=== PATIENT | male | born 1970 | race Caucasian/White ===

== ENCOUNTER 2016-11-02 14:05 | Emergency (ER) | payer SELFPAY ==
--- NOTE | 2016-11-02 14:15 | ER Document Report ---
ED Medical Screen (RME) - General Chief Complaint: Headache Stated Complaint: HEAD ACHE Time seen by provider: 14:10 Mode of Arrival: Medic Information source: Patient Notes: 46 yo male presents to ed for headache since yesterday. Woke up this morning on the floor does not know how he got there. TRAVEL OUTSIDE OF THE [place] IN LAST 30 DAYS: No - HPI Onset: Yesterday Onset/Duration: Persistent Quality of pain: Sharp, Throbbing Severity: Severe Pain Level: 5 Associated Symptoms: Headache - worst headache, Vomiting - x1 Exacerbated by: Other - light and noise Relieved by: Denies Similar symptoms previously: Yes Recently seen / treated by doctor: No - Related Data Smoking: Cigarettes, Less than 1 pack/day Frequency of alcohol use: Social Drug Abuse: None Allergies/Adverse Reactions: oragel Allergy (Intermediate, Uncoded 09/25/16 16:08) ambesol Allergy (Mild, Uncoded 09/25/16 16:08) Past Medical History - Past Medical History Cardiac Medical History: Reports: Hx Atrial Fibrillation - Resolved after cardiac ablation, Hx Hypertension Pulmonary Medical History: Reports: Hx Bronchitis, Hx COPD - Patient unclear about the Psychiatric Medical History: Reports: Hx Depression - In treatment through [facility] Past Surgical History: Reports: Hx Cardiac Catheterization - ablation, Hx Cardiac Surgery - "open heart to patch holes/valves" ablation - Immunizations Immunizations up to date: Yes Hx Diphtheria, Pertussis, Tetanus Vaccination: Yes - 2012
[2016-11-02] MEDS ORDERED: DIPHENHYDRAMINE HCL 50 MG/ML VIAL IV ONE (14:59)
[2016-11-02] MEDS ORDERED: PROCHLORPERAZINE EDISYLATE INJ 10 MG/2 ML VIAL IV ONE (14:59)
--- NOTE | 2016-11-02 15:08 | ER Document Report ---
ED Headache - General Chief Complaint: Headache Stated Complaint: HEAD ACHE Time seen by provider: 15:07 Mode of Arrival: Medic Information source: Patient Notes: 46 yo smoker, occ. ETOH (last ), no drugs, male c/o waking up on the floor at 11:30 am with worsening headache 5/5, that started during the day, throbbing- constant, 3/5, all over, but worse on the left. He went to bed in the bed. So he does not know why he was on the floor. He does remember vomiting during the night-went back to sleep. No fever or chills, no diarrhea. Has shortness of breath with lightheadedness that he has had since he woke up. No chest pain. No abdominal pain. Mld nausea. No eaten today. TRAVEL OUTSIDE OF THE [place] IN LAST 30 DAYS: No - Related Data Allergies/Adverse Reactions: oragel Allergy (Intermediate, Uncoded 11/02/16 14:10) ambesol Allergy (Mild, Uncoded 11/02/16 14:10) Past Medical History - General Information source: Patient - Social History Smoking Status: Current Every Day Smoker Chew tobacco use (# tins/day): No Frequency of alcohol use: Social Drug Abuse: None Lives with: Alone Family History: Arthritis, CAD, COPD, DM, Hyperlipidemia, Hypertension Patient has suicidal ideation: No Patient has homicidal ideation: No - Past Medical History Cardiac Medical History: Reports: Hx Atrial Fibrillation - Resolved after cardiac ablation, Hx Hypertension Pulmonary Medical History: Reports: Hx Bronchitis, Hx COPD - Patient unclear about the Psychiatric Medical History: Reports: Hx Depression - In treatment through [facility] Past Surgical History: Reports: Hx Cardiac Catheterization - ablation, Hx Cardiac Surgery - "open heart to patch holes/valves" ablation - Immunizations Immunizations up to date: Yes Hx Diphtheria, Pertussis, Tetanus Vaccination: Yes - 2012 Review of Systems - Review of Systems Constitutional: No symptoms reported EENT: No symptoms reported Cardiovascular: No symptoms reported Respiratory: No symptoms reported Gastrointestinal: See HPI Genitourinary: No symptoms reported Male Genitourinary: No symptoms reported Musculoskeletal: No symptoms reported Skin: No symptoms reported Hematologic/Lymphatic: No symptoms reported Neurological/Psychological: See HPI Physical Exam - Vital signs Vitals: Temp Pulse Resp BP Pulse Ox 98.4 F 79 20 132/88 H 98 11/02/16 14:10 11/02/16 14:10 11/02/16 14:10 11/02/16 14:10 11/02/16 14:10 Interpretation: Normal - General General appearance: Appears well, Alert In distress: None - HEENT Head: Normocephalic, Atraumatic Eyes: Normal Conjunctiva: Normal Extraocular movements intact: Yes Pupils: PERRL Nerve palsy: No Tympanic membrane: Normal Mucous membranes: Normal Pharynx: Normal Neck: Supple. No: Lymphadenopathy - Respiratory Respiratory status: No respiratory distress Chest status: Nontender Breath sounds: Normal Chest palpation: Normal - Cardiovascular Rhythm: Regular Heart sounds: Normal auscultation Murmur: No - Abdominal Inspection: Normal Distension: No distension Bowel sounds: Normal Tenderness: Nontender Organomegaly: No organomegaly - Back Back: Normal, Nontender. No: CVA tenderness - Extremities General upper extremity: Normal inspection, Nontender, Normal color, Normal ROM , Normal temperature General lower extremity: Normal inspection, Nontender, Normal color, Normal ROM , Normal temperature, Normal weight bearing. No: Gricelda's sign - Neurological Neuro grossly intact: Yes Cognition: Normal Orientation: AAOx4 Doris Coma Scale Eye Opening: Spontaneous [employer] Coma Scale Verbal: Oriented Doris Coma Scale Motor: Obeys Commands Doris Coma Scale Total: 15 Speech: Normal Motor strength normal: LUE, RUE, LLE, RLE Sensory: Normal - Psychological Associated symptoms: Normal affect, Normal mood - Skin Skin Temperature: Warm Skin Moisture: Dry Skin Color: Normal Skin irregularity: negative: Rash Course - Re-evaluation Re-evalutation: 11/02/16 16:14 Headache down to 3/[address] is negative. 11/02/16 17:12 Headache now 2/5. he states he has no way home. 11/02/16 17:32 Urine drug screen is pending. His ride is here so I will let him go with his discharge paperwork and check the urine drug screen when it is resulted. Gait stable - Vital Signs Vital signs: Temp Pulse Resp BP Pulse Ox 98.4 F 75 20 144/86 H 97 11/02/16 17:31 11/02/16 17:31 11/02/16 14:10 11/02/16 17:31 11/02/16 17:31 - Laboratory Result Diagrams: 11/02/16 15:40 11/02/16 15:40 Laboratory results interpreted by me: 11/02/16 15:40 Ur Leukocyte Esterase SMALL H Discharge - Discharge Clinical Impression: Amnesia Headache Qualifiers: Headache type: unspecified Headache chronicity pattern: acute headache Intractability: not intractable Qualified Code(s): R51 - Headache Condition: Good Disposition: HOME, SELF-CARE Instructions: Intravenous Compazine for Headaches ([facility]), Use of Diphenhydramine , Toradol Injection ([facility]), Headache ([facility]), Neurologist, Acetaminophen, Use of [id number] Ibuprofen ([facility]) Additional Instructions: return to er if worse copy of labwork and the CT report given to you Referrals: AUREA CONTRERAS DO [Primary Care Provider] - Follow up as needed
[2016-11-02] MEDS ORDERED: KETOROLAC TROMETHAMINE INJ/PF 30 MG/1 ML SDV IV ONE (15:26)
[2016-11-02] MEDS ORDERED: NORMAL SALINE 1000 ML 1,000 ML IV ONE (15:28)
[2016-11-02 16:07] LABS: ABSOLUTE LYMPHOCYTES (AUTO) 2.1 10^3/uL (0.5-4.7); ABSOLUTE MONOCYTES (AUTO) 0.5 10^3/uL (0.1-1.4); ABSOLUTE NEUT (AUTO) 7.5 10^3/uL (1.7-8.2); BASOPHILS % (AUTO) 0.5 % (0-2); HEMATOCRIT 45.2 % (37.9-51.0); HEMOGLOBIN 15.5 g/dL (13.5-17.0); HGB HCT DIFFERENCE 1.3; LYMPHOCYTES % (AUTO) 20.5 % (13-45); MEAN CORPUSCULAR HEMOGLOBIN 31.8 pg (27.0-33.4); MEAN CORPUSCULAR HGB CONC 34.3 g/dL (32.0-36.0); MEAN CORPUSCULAR VOLUME 93 fl (80-97); MONOCYTES % (AUTO) 5.1 % (3-13); RED BLOOD COUNT 4.88 10^6/uL (4.35-5.55); RED CELL DISTRIBUTION WIDTH 13.2 % (11.5-14.0); SEGMENTED NEUTROPHILS % (AUTO) 73.9 % (42-78); WHITE BLOOD COUNT 10.2 10^3/uL (4.0-10.5)
[2016-11-02 16:23] LABS: ALANINE AMINOTRANSFERASE 55 U/L (21-72); ALBUMIN 4.1 g/dL (3.5-5.0); ALKALINE PHOSPHATASE 79 U/L (38-126); ANION GAP 12 (5-19); ASPARTATE AMINO TRANSFERASE 29 U/L (17-59); BILIRUBIN,TOTAL 0.4 mg/dL (0.2-1.3); BLOOD UREA NITROGEN 14 mg/dL (7-20); CALCIUM 9.9 mg/dL (8.4-10.2); CARBON DIOXIDE 24 mmol/L (22-30); CHLORIDE 107 mmol/L (98-107); CREATININE RESULT 0.93 mg/dL (0.52-1.25); GLUCOSE 86 mg/dL (75-110); POTASSIUM 4.9 mmol/L (3.6-5.0); SODIUM 142.5 mmol/L (137-145); TOTAL PROTEIN 6.9 g/dL (6.3-8.2)
[2016-11-02] MEDS ORDERED: ACETAMINOPHEN 325 MG TABLET PO ONE (16:24)
[2016-11-02 17:23] LABS: APPEARANCE,URINE CLEAR; BILIRUBIN,URINE NEGATIVE (NEGATIVE); GLUCOSE, URINE NEGATIVE (NEGATIVE); KETONES,URINE NEGATIVE (NEGATIVE); LEUKOCYTE ESTERASE,URINE SMALL (NEGATIVE); NITRITE,URINE NEGATIVE (NEGATIVE); PROTEIN,URINE NEGATIVE (NEGATIVE); URINE SPECIFIC GRAVITY 1.006; UROBILINOGEN,URINE NEGATIVE mg/dL (<2.0)
[2016-11-02 17:36] VITALS: BP 144/86
[2016-11-02 17:41] LABS: URINE BARBITURATES SCREEN NEGATIVE; URINE METHADONE SCREEN NEGATIVE; URINE PHENCYCLIDINE SCREEN NEGATIVE
== END 2016-11-02 17:42 | disposition home or self-care (01) ==
LOC: ER 14:05
DX: R51 Headache (principal); R41.3 Other amnesia; R11.2 Nausea with vomiting, unspecified; I10 Essential (primary) hypertension; F17.200 Nicotine dependence, unspecified, uncomplicated
CPT/HCPCS: 99284; 96361; 96374; 96375; 36415; 85025; 80053; 81001; 80307; 70450; J1200; J1885; J0780; J7030

== ENCOUNTER 2016-12-06 14:29 | Emergency (ER) | payer SELFPAY ==
--- NOTE | 2016-12-06 14:47 | ER Document Report ---
ED Medical Screen (RME) - General Stated Complaint: STOMACH PAIN Notes: patient is a 46 year old male with abdominal pain LLQ and back pain. onset was 3 days ago. +nausea -vomiting pyuria, frequency, urgency denies discharge Denies history kidney stone I have greeted and performed a rapid initial assessment of this patient. A comprehensive ED assessment and evaluation of the patient, analysis of test results and completion of the medical decision making process will be conducted by additional ED providers. TRAVEL OUTSIDE OF THE [place] IN LAST 30 DAYS: No - Related Data Allergies/Adverse Reactions: oragel Allergy (Intermediate, Uncoded 11/02/16 14:10) ambesol Allergy (Mild, Uncoded 11/02/16 14:10) Past Medical History - Past Medical History Cardiac Medical History: Reports: Hx Atrial Fibrillation - Resolved after cardiac ablation, Hx Hypertension Pulmonary Medical History: Reports: Hx Bronchitis, Hx COPD - Patient unclear about the Psychiatric Medical History: Reports: Hx Depression - In treatment through [facility] Past Surgical History: Reports: Hx Cardiac Catheterization - ablation, Hx Cardiac Surgery - "open heart to patch holes/valves" ablation - Immunizations Immunizations up to date: Yes Hx Diphtheria, Pertussis, Tetanus Vaccination: Yes - 2012
[2016-12-06 15:18] LABS: APPEARANCE,URINE CLEAR; BILIRUBIN,URINE NEGATIVE (NEGATIVE); GLUCOSE, URINE NEGATIVE (NEGATIVE); KETONES,URINE NEGATIVE (NEGATIVE); LEUKOCYTE ESTERASE,URINE NEGATIVE (NEGATIVE); NITRITE,URINE NEGATIVE (NEGATIVE); PROTEIN,URINE NEGATIVE (NEGATIVE); URINE SPECIFIC GRAVITY 1.003; UROBILINOGEN,URINE NEGATIVE mg/dL (<2.0)
[2016-12-06 15:35] LABS: ALANINE AMINOTRANSFERASE 51 U/L (21-72); ALBUMIN 4.9 g/dL (3.5-5.0); ALKALINE PHOSPHATASE 86 U/L (38-126); ANION GAP 13 (5-19); ASPARTATE AMINO TRANSFERASE 27 U/L (17-59); BILIRUBIN,TOTAL 0.6 mg/dL (0.2-1.3); BLOOD UREA NITROGEN 7 mg/dL (7-20); CALCIUM 10.1 mg/dL (8.4-10.2); CARBON DIOXIDE 24 mmol/L (22-30); CHLORIDE 105 mmol/L (98-107); CREATININE RESULT 0.98 mg/dL (0.52-1.25); GLUCOSE 101 mg/dL (75-110); POTASSIUM 4.8 mmol/L (3.6-5.0); SODIUM 141.5 mmol/L (137-145); TOTAL PROTEIN 7.7 g/dL (6.3-8.2)
[2016-12-06 15:51] LABS: ABSOLUTE EOSINOPHILS # (AUTO) 0.1 10^3/uL (0.0-0.6); ABSOLUTE LYMPHOCYTES (AUTO) 2.4 10^3/uL (0.5-4.7); ABSOLUTE MONOCYTES (AUTO) 0.6 10^3/uL (0.1-1.4); BASOPHILS % (AUTO) 0.2 % (0-2); EOSINOPHILS % (AUTO) 1.3 % (0-6); HEMATOCRIT 44.1 % (37.9-51.0); HGB HCT DIFFERENCE 0.9; MEAN CORPUSCULAR HEMOGLOBIN 31.5 pg (27.0-33.4); MEAN CORPUSCULAR VOLUME 93 fl (80-97); MONOCYTES % (AUTO) 7.8 % (3-13); RED BLOOD COUNT 4.76 10^6/uL (4.35-5.55); RED CELL DISTRIBUTION WIDTH 13.4 % (11.5-14.0); SEGMENTED NEUTROPHILS % (AUTO) 61.7 % (42-78); WHITE BLOOD COUNT 8.1 10^3/uL (4.0-10.5)
[2016-12-06] MEDS ORDERED: KETOROLAC TROMETHAMINE INJ/PF 30 MG/1 ML SDV IV ONE (16:01)
--- NOTE | 2016-12-06 16:04 | ER Document Report ---
ED General - General Chief Complaint: Abdominal Pain Stated Complaint: STOMACH PAIN Time seen by provider: 16:01 Mode of Arrival: Ambulatory Information source: Patient Notes: 46-year-old male who complains of 3 day history of left lower quadrant abdominal pain left flank pain and nausea. He also reports 5 day history of cough for for green sputum and occasional wheezing. He denies fever, chills, vomiting, diarrhea, hematemesis, hematochezia, or melena. He does report dysuria for the past 3 days but no hematuria. He reports prior history of symptoms like this once many years ago but says he did not seek medical care for it. Patient denies any right-sided pain or groin pain. Patient reports eating does not make pain better or worse he reports the pain is been constant Physical Exam: General: Alert, appears well. HEENT: Normocephalic. Atraumatic. PERRLA. Extraocular movements intact. Oropharynx clear. Neck: Supple. Non-tender. Respiratory: No respiratory distress. Clear and equal breath sounds bilaterally. Cardiovascular: Regular rate and rhythm. Abdominal: Normal Inspection. Soft, mild tenderness in left upper quadrant left lower quadrant and right lower quadrant with no guarding rebound rigidity or referred pain. No distension. Normal Bowel Sounds. exam normal male testes ongoing no masses no hernias no lesions. Patient localizes pain to lower abdominal musculature bilaterally and not the area Back: Non-tender. No deformity or step off. Extremities: Moves all four extremities. Upper extremities: Normal inspection. Non-tender. Normal color. Normal ROM. Normal temperature. Lower extremities: Normal inspection. Non-tender. No edema. Normal color. Normal ROM. Normal temperature. Neurological: Speech clear mentation normal moves all extremities well. Psychological: Normal affect. Normal Mood. Skin: Warm. Dry. Normal color.m TRAVEL OUTSIDE OF THE [place] IN LAST 30 DAYS: No - Related Data Allergies/Adverse Reactions: oragel Allergy (Intermediate, Uncoded 12/06/16 14:47) ambesol Allergy (Mild, Uncoded 12/06/16 14:47) Past Medical History - Social History Smoking Status: Current Every Day Smoker Chew tobacco use (# tins/day): No Frequency of alcohol use: None Drug Abuse: None Family History: Arthritis, CAD, COPD, DM, Hyperlipidemia, Hypertension Patient has suicidal ideation: No Patient has homicidal ideation: No - Past Medical History Cardiac Medical History: Reports: Hx Atrial Fibrillation - Resolved after cardiac ablation, Hx Hypertension Pulmonary Medical History: Reports: Hx Bronchitis, Hx COPD - Patient unclear about the Renal/ Medical History: Denies: Hx Peritoneal Dialysis Psychiatric Medical History: Reports: Hx Depression - In treatment through [facility] Past Surgical History: Reports: Hx Cardiac Catheterization - ablation, Hx Cardiac Surgery - "open heart to patch holes/valves" ablation - Immunizations Immunizations up to date: Yes Hx Diphtheria, Pertussis, Tetanus Vaccination: Yes - 2012 Review of Systems - Review of Systems Constitutional: See HPI EENT: denies: Ear pain, Throat pain Cardiovascular: denies: Chest pain, Syncope Respiratory: See HPI Gastrointestinal: See HPI Genitourinary: See HPI Musculoskeletal: See HPI Hematologic/Lymphatic: denies: Swollen glands Neurological/Psychological: denies: Weakness, Numbness Course - Re-evaluation Re-evalutation: 12/06/16 17:09 12/06/16 17:10 Patient's abdominal exam seems most consistent with abdominal wall pain possibly related to the cough that he has had for the past 5 days. He will be prescribed an inhaler and antibiotics for bronchitis. Since workup for intra- abdominal problems has been negative and his urine is clear. - Laboratory Result Diagrams: 12/06/16 14:50 12/06/16 14:50 Laboratory results interpreted by me: Urinalysis negative - Diagnostic Test Radiology reviewed: Image reviewed, Reports reviewed Discharge - Discharge Clinical Impression: Bronchitis Abdominal pain Qualifiers: Abdominal location: unspecified location Qualified Code(s): R10.9 - Unspecified abdominal pain Condition: Stable Disposition: HOME, SELF-CARE Additional Instructions: Abdominal Pain There are many causes of abdominal pain. Pain can mean a serious problem requiring surgery (such as appendicitis). It can also be an innocent problem that goes away on its own (such as a viral infection). Often, time must pass to determine the cause of pain. The physician does not feel that hospitalization is necessary, at present. Things may change within the next 24 hours. Call the doctor or come back for re- examination if any problems occur, such as: (1) Pain that becomes more severe, steady, or becomes concentrated in one specific area. . (2) Vomiting that persists or becomes more frequent. (3) Blood in the vomitus, urine, or bowel movements. Blood in the stool may have a tarry or black appearance. (4) Shaking chills or fever greater than 100 degrees F. (5) The abdomen becomes more distended or swollen. (6) Bowel movements cease. (7) Failure to improve as expected. Bronchitis You have acute bronchitis. This disease is an infection or inflammation of the air passageways in your lungs. Symptoms usually include cough, low grade fever, shortness of breath, and wheezing. The cough usually persists for a couple of weeks. Most cases of bronchitis get better without antibiotics. We prescribe antibiotics when we believe bacteria are damaging your airways, or if there's high risk the bronchitis will worsen into pneumonia. Increase your fluid intake. A cool mist humidifier may make your lungs more comfortable. An expectorant (cough medicine that loosens phlegm) can help. If you smoke, STOP!!! Recovery from bronchitis can be somewhat slow, but you should see improvement within a day or two. Repeated episodes of bronchitis may result in lung damage -- for example, chronic bronchitis, recurrent pneumonias, or emphysema. Call the doctor if you develop increasing fever, shortness of breath, chest pain, bloody sputum, or otherwise worsen. If you have not improved at all after several days, contact the physician. Prescriptions: Albuterol Sulfate [Proair HFA Inhalation Aerosol 8.5 gm MDI] 2 puff IH Q4H PRN # 1 mdi PRN Reason: Azithromycin [Zithromax 250 mg Tablet] 250 mg PO ASDIR PRN #6 tablet PRN Reason: Tramadol HCl 50 mg PO BID PRN #7 tablet PRN Reason: For Pain Referrals: AUREA CONTRERAS DO [Primary Care Provider] - Follow up in 1 week
[2016-12-06 17:25] VITALS: BP 122/76
== END 2016-12-06 17:23 | disposition home or self-care (01) ==
LOC: ER 14:29
DX: J40 Bronchitis, not specified as acute or chronic (principal); R10.32 Left lower quadrant pain; R11.0 Nausea; F17.200 Nicotine dependence, unspecified, uncomplicated; I10 Essential (primary) hypertension
CPT/HCPCS: 99284; 36415; 85025; 80053; 81001; 71010; 74176; J1885

== ENCOUNTER 2017-01-30 22:47 | Emergency (ER) | payer SELFPAY ==
--- NOTE | 2017-01-31 02:35 | ER Document Report ---
ED Neck/Back Problem - General Chief Complaint: Low Back Pain Stated Complaint: FALL,BACK PAIN Mode of Arrival: Ambulatory Information source: Patient Notes: 46 y/o M presents to ED c/o lower back pain. Pt reports hx of chronic back pain however states was in the shower this evening when he lost his footing and slipped. States he did not fall but caught himself with the siderail and the twisting motion provoked sharp pain to his bilateral lower back. Reports pain is similar to his chronic pain which is worse with bending of torso and ambulation. States pain sometimes radiates to his left buttocks area. Denies fever, n/v, extremity weakness/numbness/tingling, saddle numbness, bowel/ bladder dysfunction. TRAVEL OUTSIDE OF THE [place] IN LAST 30 DAYS: No - HPI Patient complains to provider of: Pain, Lower back Onset: This evening Where: Home Onset: Chronic Timing: Worse Quality of pain: Achy, Sharp Severity: Moderate Pain Level: 3 Context: Fall/near-fall, Turning Recent injury: Possibly Associated symptoms: Like prior neck/back pain, Lower back pain. denies: Chills , Constipation, Fever, Incontinence, Motor loss, Numbness/tingling, Sensory loss , Sweaty, Unable to urinate Exacerbated by: Movement of trunk Relieved by: Upright position Similar symptoms previously: Yes - Related Data Allergies/Adverse Reactions: oragel Allergy (Intermediate, Uncoded 01/30/17 23:29) ambesol Allergy (Mild, Uncoded 01/30/17 23:29) Past Medical History - General Information source: Patient - Social History Smoking Status: Current Every Day Smoker Cigarette use (# per day): Yes - 1 ppd Frequency of alcohol use: Rare Drug Abuse: None Lives with: Family Family History: Arthritis, CAD, COPD, DM, Hyperlipidemia, Hypertension Patient has suicidal ideation: No Patient has homicidal ideation: No - Past Medical History Cardiac Medical History: Reports: Hx Atrial Fibrillation - Resolved after cardiac ablation, Hx Hypertension Pulmonary Medical History: Reports: Hx Bronchitis, Hx COPD - Patient unclear about the Renal/ Medical History: Denies: Hx Peritoneal Dialysis Psychiatric Medical History: Reports: Hx Depression - In treatment through [facility] Past Surgical History: Reports: Hx Cardiac Catheterization - ablation, Hx Cardiac Surgery - "open heart to patch holes/valves" ablation - Immunizations Immunizations up to date: Yes Hx Diphtheria, Pertussis, Tetanus Vaccination: Yes - 2012 Review of Systems - Review of Systems Constitutional: No symptoms reported EENT: No symptoms reported Cardiovascular: No symptoms reported Respiratory: No symptoms reported Gastrointestinal: No symptoms reported Genitourinary: No symptoms reported Male Genitourinary: No symptoms reported Musculoskeletal: See HPI Skin: No symptoms reported Hematologic/Lymphatic: No symptoms reported Neurological/Psychological: No symptoms reported -: Yes All other systems reviewed and negative Physical Exam - Vital signs Vitals: Temp Pulse Resp BP Pulse Ox 98.2 F 75 20 140/68 H 97 01/30/17 23:29 01/30/17 23:29 01/30/17 23:29 01/30/17 23:29 01/30/17 23:29 - General General appearance: Appears well, Alert In distress: None - HEENT Head: Normocephalic, Atraumatic Eyes: Normal Pupils: PERRL - Respiratory Respiratory status: No respiratory distress Chest status: Nontender Breath sounds: Normal - CTAB Chest palpation: Normal - Cardiovascular Rhythm: Regular Heart sounds: Normal auscultation Murmur: No Pulses: Normal: Radial, Posterior tibial, Dorsalis pedis Normal capillary refill: Yes - Abdominal Inspection: Normal Distension: No distension Bowel sounds: Normal Tenderness: Nontender Organomegaly: No organomegaly - Back Back: Tender - Mild tenderness to palpation to bilateral paraspinal musculature lumbar level. Full range of motion without paresthesias or neurological deficits.. No: Normal, Nontender, Deformity/step-off, CVA tenderness, Vertebra tenderness, Scars, Scoliosis, Wounds, Other - Extremities General upper extremity: Normal inspection, Nontender, Normal color, Normal ROM , Normal strength, Normal temperature. No: Edema General lower extremity: Normal inspection, Nontender, Normal color, Normal ROM , Normal strength, Normal temperature, Normal weight bearing. No: Edema - Neurological Neuro grossly intact: Yes Cognition: Normal Orientation: AAOx4 Doris Coma Scale Eye Opening: Spontaneous [place] Coma Scale Verbal: Oriented Doris Coma Scale Motor: Obeys Commands [place] Coma Scale Total: 15 Speech: Normal Motor strength normal: LUE, RUE, LLE, RLE Sensory: Normal - Skin Skin Temperature: Warm Skin Moisture: Dry Skin Color: Normal Course - Re-evaluation Re-evalutation: 01/31/17 02:30 Patient hemodynamically stable, in no distress, afebrile. The patient presents with back pain without signs of spinal cord compression, cauda equina syndrome, infection, aneurysm, or other serious etiology. The patient is neurologically intact, independently and steadily ambulatory without paresthesias or neurological deficits. Given the extremely low risk of these diagnoses further testing and evaluation for these possibilities does not appear to be indicated at this time. Patient appears stable for discharge at this time and agrees with home care, follow-up, and ED return precautions. - Vital Signs Vital signs: Temp Pulse Resp BP Pulse Ox 97.9 F 77 16 132/73 H 98 01/31/17 02:45 01/31/17 02:45 01/31/17 02:45 01/31/17 02:45 01/31/17 02:45 Discharge - Discharge Clinical Impression: Low back pain Qualifiers: Chronicity: acute Back pain laterality: bilateral Sciatica presence: with sciatica Sciatica laterality: sciatica of left side Qualified Code(s): M54.42 - Lumbago with sciatica, left side Condition: Stable Disposition: HOME, SELF-CARE Additional Instructions: LOW BACK PAIN: Three out of every four people will have an episode of disabling back pain during their lifetime. Most commonly the pain is due to straining of the muscles and ligaments in the low back. Usual treatment includes: (1) Rest on a firm surface. Avoid lying on your stomach. (2) Ice pack the painful area. After a few days, gentle heat may be used intermittently to relax the area, or ice packs can be continued. (3) Medication may be needed -- muscle relaxers and antiinflammatory medicines are commonly used. (4) As the back improves, exercises are prescribed to strengthen the back and abdominal muscles. Your doctor will advise you on the proper care for your back at each stage in your recovery. You may be better in a few days -- or healing may take several weeks. If new symptoms of a "herniated disc" (radiation of pain, numbness, or tingling down the back of the leg or weakness in the leg) occur, you should be re-examined. Further testing may be necessary. Anti-Inflammatory Medication You have received a prescription for an antiinflammatory agent. This is an excellent, safe drug for pain control. In addition, it has potent antiinflammatory effects which are beneficial, especially in the treatment of injuries, arthritis, or tendonitis. It's best to take this medicine with food. Persons with ulcer disease or allergy to aspirin should notify their physician of this before taking this drug. Take the medication exactly as prescribed. Don't take additional doses unless instructed to do so by your doctor. If you develop wheezing, shortness of breath, hives, faintness, stomach pain, vomiting, or dark black stools, return for re-evaluation at once. MUSCLE RELAXERS: Muscle relaxing medications are usually prescribed for acute muscle spasm or injury to the neck and back. They are often combined with antiinflammatory pain medication for increased relief. You may stop the muscle relaxer when the pain and stiffness have improved. Start the medication again if spasms recur. Muscle relaxers may cause drowsiness, especially with the first dose. Do not operate machinery or drive while under the effects of the medication. Most muscle relaxers last up to 24 hours. Do not combine the medication with alcohol. ICE PACKS: Apply ice packs frequently against the painful area. Many different schedules are recommended, such as "20 minutes on, 20 minutes off" or "one hour ice, two hours rest." If you need to work, you may need to go longer between ice treatments. You should plan to have the area ice packed AT LEAST one fourth of the time. The ice should be applied over the wrap, tape, or splint, or over a layer of cloth -- not directly against the skin. Some ice bags have a built-in cloth and can be put directly on the skin. WARM PACKS: After approximately two days, apply gentle heat (such as a heating pad or hot water bottle) for about 20 to 30 minutes about every two hours -- at least four times daily. Warmth and elevation will help you make a more rapid recovery , and will ease the pain considerably. Do not use HOT heat, and never apply heat for longer than 30 minutes. The continuous heat can invisibly damage skin and muscles -- even when no burn is seen on the surface. Damaged muscles can make you MORE sore. FOLLOW-UP CARE: Follow-up with your primary care provider within the next week. Return to the Emergency Department for any worsening symptoms or concerns. Prescriptions: Methocarbamol [Robaxin 500 mg Tablet] 500 mg PO Q8HP PRN #10 tablet PRN Reason: Naproxen 500 mg PO BIDP PRN #10 tablet PRN Reason: Forms: Elevated Blood Pressure Referrals: AUREA CONTRERAS DO [NO LOCAL MD] - Follow up in 3-5 days
[2017-01-31] MEDS ORDERED: NAPROXEN 250 MG TABLET PO ONE (02:44)
[2017-01-31 03:01] VITALS: BP 132/73
== END 2017-01-31 02:45 | disposition home or self-care (01) ==
LOC: ER 22:47
DX: M54.42 Lumbago with sciatica, left side (principal); F17.210 Nicotine dependence, cigarettes, uncomplicated; I10 Essential (primary) hypertension
CPT/HCPCS: 99283

== ENCOUNTER 2017-01-31 22:57 | Emergency (ER) | payer SELFPAY ==
[2017-01-31] MEDS ORDERED: NALOXONE HCL INJ/PF 0.4 MG/1 ML SDV IV ONE (23:06)
[2017-01-31] MEDS ORDERED: NORMAL SALINE 1000 ML 1,000 ML IV ONE (23:07)
--- NOTE | 2017-01-31 23:11 | ER Document Report ---
ED General - General Stated Complaint: POSSIBLE ETOH Notes: Patient is a 46-year-old male presents with altered mental status after ingesting a large amount of alcohol and Seroquel. It is reported by the paramedics that he may have taken a second type of medication that they do not want no what it is.Paramedics were called by family member. He had a bottle of what was originally 30 tablets of Seroquel. 14 were left. It is unclear if he actually took 16 tablets or exactly, he took. Is still unknown exactly what else he may have taken. Patient is somnolent but responds to sternal rub. At this time is unable to answer any further questions for him. History is limited to just what the paramedics can tell me. TRAVEL OUTSIDE OF THE [place] IN LAST 30 DAYS: No - Related Data Allergies/Adverse Reactions: oragel Allergy (Intermediate, Uncoded 01/30/17 23:29) ambesol Allergy (Mild, Uncoded 01/30/17 23:29) Past Medical History - Social History Smoking Status: Unknown if Ever Smoked Frequency of alcohol use: unknown Drug Abuse: Other - uknown Family History: Arthritis, CAD, COPD, DM, Hyperlipidemia, Hypertension - Past Medical History Cardiac Medical History: Reports: Hx Atrial Fibrillation - Resolved after cardiac ablation, Hx Hypertension Pulmonary Medical History: Reports: Hx Bronchitis, Hx COPD - Patient unclear about the Renal/ Medical History: Denies: Hx Peritoneal Dialysis Psychiatric Medical History: Reports: Hx Depression - In treatment through [facility] Past Surgical History: Reports: Hx Cardiac Catheterization - ablation, Hx Cardiac Surgery - "open heart to patch holes/valves" ablation - Immunizations Immunizations up to date: Yes Hx Diphtheria, Pertussis, Tetanus Vaccination: Yes - 2012 Review of Systems - Review of Systems -: Yes ROS unobtainable due to patient's medical condition - Patient is sonolent from overdose. Physical Exam - Vital signs Vitals: Resp Pulse Ox 13 90 L 01/31/17 23:09 01/31/17 23:09 - Notes Notes: General Appearance: Somnolent but will respond some to sternal rub. Vitals: reviewed, See vital signs table. Head: no swelling or tenderness to the head Eyes: Pupils are small but equal and reactive to light, Conjuctiva clear Mouth: No decreasd moisture Throat: No tonsillar inflammation, No airway obstruction, No lymphadenopathy Neck: Supple, Lungs: No wheezing, No rales, No rhonci, No accessory muscle use, good air exchange bilaterally. Heart: Normal rate, Regular rythm, No murmur, no rub Abdomen: Normal BS, soft, No rigidity, No abdominal tenderness, No guarding, no rebound, no abdominal masses, no organomegaly Extremities: good pulses in all extremities, no swelling or tenderness in the extremities, no edema. Skin: warm, dry, appropriate color, no rash Neuro: Patient is somnolent but will try to push me away when I do sternal rub on his chest. He did not answer my questions. Remainder of neurologic exam is unobtainable due to patient's being intoxicated from drugs and alcohol.. Course - Re-evaluation Re-evalutation: 02/01/17 01:06 I was informed by the nurse that the patient vomited. The concern that there may be subluxable vomit was dark in color. I went into the room. The only vomits left is some staining on the scrubs and 4. Brown appearing color. Is fairly difficult to tell whether or not there is blood in her not to if this is just from the alcohol that he had drank earlier. I will give him a dose Protonix. We will continue to monitor him to make sure he does not have any further vomiting to make sure that there is any blood if he does. There is no emesis currently for me to be able obtain a gastric occult being that it was apparently already cleaned up. 02/01/17 03:46 Patient's had no further vomiting. He is able to talk and mumble some words. He still will not say exactly what occurred. He will not tell me why he took the medications. We will continue to monitor the patient and make sure he continues to improve. 02/01/17 07:19 Patient is now awake and talking a properly. He still not very steady when he goes to get up. If you are hours suspect that he will probably be cleared for psychiatric evaluation. We'll continue to monitor the patient until that time comes. - Vital Signs Vital signs: Temp Pulse Resp BP Pulse Ox 3 L 130/87 H 94 02/01/17 06:01 02/01/17 06:01 02/01/17 06:01 - Laboratory Result Diagrams: 01/31/17 23:30 01/31/17 23:30 Laboratory results interpreted by me: 01/31/17 23:30 Sodium 146.8 H Chloride 109 H BUN 5 L Total Protein 6.2 L Salicylates < 1.0 L Acetaminophen < 10 L - EKG Interpretation by Me Additional EKG results interpreted by me: 01/31/17 23:25 EKG is reviewed and interpreted by me. EKG shows sinus tachycardia with rate of [address] segment elevation or depression. No ischemic T wave inversions. AK interval is within normal range. QRS duration is slightly prolonged. QTC intervals prolonged. Old EKG for comparison is from 09/25/2016.
[2017-01-31 23:51] LABS: ABSOLUTE EOSINOPHILS # (AUTO) 0.1 10^3/uL (0.0-0.6); ABSOLUTE LYMPHOCYTES (AUTO) 1.9 10^3/uL (0.5-4.7); ABSOLUTE MONOCYTES (AUTO) 0.4 10^3/uL (0.1-1.4); ABSOLUTE NEUT (AUTO) 5.3 10^3/uL (1.7-8.2); BASOPHILS % (AUTO) 0.5 % (0-2); EOSINOPHILS % (AUTO) 0.7 % (0-6); HEMATOCRIT 40.3 % (37.9-51.0); HGB HCT DIFFERENCE 1.7; MEAN CORPUSCULAR HEMOGLOBIN 32.1 pg (27.0-33.4); MEAN CORPUSCULAR HGB CONC 34.8 g/dL (32.0-36.0); MEAN CORPUSCULAR VOLUME 92 fl (80-97); MONOCYTES % (AUTO) 5.3 % (3-13); RED BLOOD COUNT 4.37 10^6/uL (4.35-5.55); RED CELL DISTRIBUTION WIDTH 13.8 % (11.5-14.0); SEGMENTED NEUTROPHILS % (AUTO) 68.5 % (42-78); WHITE BLOOD COUNT 7.7 10^3/uL (4.0-10.5)
[2017-02-01 00:09] LABS: ALANINE AMINOTRANSFERASE 32 U/L (21-72); ALBUMIN 4.2 g/dL (3.5-5.0); ALCOHOL 254 mg/dL (NONE DETECTED); ALKALINE PHOSPHATASE 71 U/L (38-126); ANION GAP 15 (5-19); ASPARTATE AMINO TRANSFERASE 23 U/L (17-59); BILIRUBIN,DIRECT 0.3 mg/dL (0.0-0.4); BILIRUBIN,TOTAL 0.6 mg/dL (0.2-1.3); BLOOD UREA NITROGEN 5 mg/dL (7-20); CALCIUM 9.1 mg/dL (8.4-10.2); CARBON DIOXIDE 23 mmol/L (22-30); CHLORIDE 109 mmol/L (98-107); CREATININE RESULT 0.66 mg/dL (0.52-1.25); GLUCOSE 108 mg/dL (75-110); POTASSIUM 3.6 mmol/L (3.6-5.0); SODIUM 146.8 mmol/L (137-145); TOTAL PROTEIN 6.2 g/dL (6.3-8.2)
[2017-02-01] MEDS ORDERED: PANTOPRAZOLE SODIUM 40 MG VIAL IV ONE (01:06)
[2017-02-01] MEDS ORDERED: METOCLOPRAMIDE HCL INJ/PF 10 MG/2 ML SDV IV ONE (01:06)
[2017-02-01 03:29] LABS: APPEARANCE,URINE CLEAR; BILIRUBIN,URINE NEGATIVE (NEGATIVE); GLUCOSE, URINE NEGATIVE (NEGATIVE); KETONES,URINE NEGATIVE (NEGATIVE); LEUKOCYTE ESTERASE,URINE NEGATIVE (NEGATIVE); NITRITE,URINE NEGATIVE (NEGATIVE); PROTEIN,URINE NEGATIVE (NEGATIVE); URINE SPECIFIC GRAVITY 1.002; UROBILINOGEN,URINE NEGATIVE mg/dL (<2.0)
[2017-02-01 03:43] LABS: URINE BARBITURATES SCREEN NEGATIVE; URINE METHADONE SCREEN NEGATIVE; URINE OPIATES LOW NEGATIVE; URINE PHENCYCLIDINE SCREEN NEGATIVE
--- NOTE | 2017-02-01 11:29 | ER Document Report ---
Doctor's Note Notes: 02/01/17 11:27 Chart reviewed and patient interviewed. Patient doesn't remember exactly what happened last night. He says he was drinking heavily and does recall taking some of his Seroquel pills. Not sure if he knows why he did so, but denies feeling suicidal today. Vital signs are all normal except for a respiratory rate recorded at 6 AM of 3 breaths per minute which is obviously inconsistent with life. Repeat vitals are all normal. Labs were normal except for blood alcohol 254. Patient appears to be medically stable for transfer or discharge. Jennifer Siegel M.D.
--- NOTE | 2017-02-01 22:24 | EKG REPORT ---
SEVERITY:- ABNORMAL ECG - SINUS TACHYCARDIA PROBABLE LEFT ATRIAL ABNORMALITY INCOMPLETE RIGHT BUNDLE BRANCH BLOCK PROBABLE INFERIOR INFARCT, OLD ABNRM R PROG, CONSIDER ASMI OR LEAD PLACEMENT BORDERLINE PROLONGED QT INTERVAL : Confirmed by: Kennedi Reynolds MD 01-Feb-2017 22:23:52
--- NOTE | 2017-02-02 09:18 | ER Document Report ---
Doctor's Note Notes: 02/02/17 09:16 Patient's ER notes were reviewed. Nursing staff states no overnight events. Patient is currently resting currently. Lab work and vital signs have been reviewed. Patient stable for disposition
[2017-02-02] MEDS ORDERED: CETIRIZINE 10 MG TABLET PO ONE (12:34)
[2017-02-02] MEDS ORDERED: NICOTINE 14 MG/24 HR PATCH.TD24 TD ONE (12:34)
--- NOTE | 2017-02-02 12:48 | PSYCHOLOGICAL NOTE ---
Psych Note - Psych Note Psych Note: Patient presented to [facility] ED with altered mental status after ingesting a large amount of alcohol and cervical. Is reported by the paramedics that he may have taken a second type of medication that the do not want no what it is. Emesis was called by family member. He had a bottle of what was originally 30 tablets of Seroquel. 14 were left. It is unclear if he actually took 16 tablets or exactly, he took. Is still unknown exactly what else he may have taken. Patient states that he has no memory of what happened last night. He confirms that he has been depressed but denies current suicidal ideation; "they say I took a bunch of pills." He continued to disclose that he use to go to [facility] and had no issues while he was on his medication but he lost his insurance. He continued to disclose that it has been over a year since he has had insurance. Patient is alert and orientation to person, place, time and circumstance. Mood is euthymic with congruent affect. Patient denies current suicidal/homicidal ideation. Patient denies auditory and visual hallucinations; no delusions are noted. Thought process is logical organized and linear. Conversational speech was within normal rate tone and prosody. Eye contact was well maintained. Intellectual abilities appear to be low average range. Attention and concentration are fair. Insight, judgment, impulse control are poor. 314.01 (F90.9) ADHD per history provided by patient 311 (F32.9) Unspecified depressive disorder per history provided by patient Impression\\plan: Patient is recommended to continue under IVC. At this time patient is a poor historian and collaterals have not been obtained at this point. Dr. Griffin was consulted on the care and management of this patient; attending physician is in agreement with recommendations and disposition.
--- NOTE | 2017-02-02 12:57 | PSYCHOLOGICAL NOTE ---
Psych Note - Psych Note Psych Note: Patient presented to [facility] ED with altered mental status after ingesting a large amount of alcohol and cervical. Is reported by the paramedics that he may have taken a second type of medication that the do not want no what it is. Emesis was called by family member. He had a bottle of what was originally 30 tablets of Seroquel. 14 were left. It is unclear if he actually took 16 tablets or exactly, he took. Is still unknown exactly what else he may have taken. Patient disclosed he is starting to remember bits and pieces however he does not remember everything. He continued to disclose that he does remember that he was drinking and he does remember taking pills. He continued disclosed that he thinks the problem is that he was drinking. Patient confirms he has no thoughts of suicide. Clinician spoke with Juan iDego patient's father, . He disclosed that there is been a lot of stressors lately such as losing family pets, patient's brother , he's been turned down for SSI 2 times, and can't find a job. Patient stated that he was worried that his father was having to take care of everything; "I'm putting it all on you." I continued disclosed that they were watching TV when the patient got up and went to his own room. He stated he did not think of anything of this because this was normal. Continue disclosed that the patient came back into the bedroom and has 4 pills in his hand. I disclosed the patient started to cry and states told them what he had done. He states that he called 911 after taking the pills away from him. He continued disclosed that the patient has not drank alcohol in a while and thinks this may have complicated. Juan Diego confirms he is willing to ensure the patient has no access medications either prescription or [id number] and no episodes he continued disclosed that he is willing to assist the patient in following through with his mental health needs. Patient is alert and orientation to person, place, time and circumstance. Mood is euthymic with congruent affect. Patient denies current suicidal/homicidal ideation. Patient denies auditory and visual hallucinations; no delusions are noted. Thought process is logical organized and linear. Conversational speech was within normal rate tone and prosody. Eye contact was well maintained. Intellectual abilities appear to be low average range. Attention and concentration are fair. Insight, judgment, impulse control are poor. 314.01 (F90.9) ADHD per history provided by patient 311 (F32.9) Unspecified depressive disorder per history provided by patient Impression\\plan: Patient is recommended for rescind of IVC is considered psychiatrically cleared for discharge. Patient denies suicidal ideation and does not meet criteria per [place] GS 122C. Patient is recommended to follow up with mental health provider of his choice. Patient was provided resource list. Patient's father whom the patient lives with confirms he will ensure patient has no access to medications or weapons. He also confirms he will since the patient in following up with mental health needs to include assessments and treatment. Dr. Griffin was consulted on the care and management of this patient ; attending physician is in agreement with recommendations and disposition.
--- NOTE | 2017-02-02 13:14 | ER Document Report ---
ED Psych Disorder / Suicide - General Mode of Arrival: Medic TRAVEL OUTSIDE OF THE [place] IN LAST 30 DAYS: No <MINNIE BHAGAT - Last Filed: 02/02/17 12:59> <DEREK CHUNG - Last Filed: 02/02/17 13:25> - General Chief Complaint: Other Stated Complaint: POSSIBLE ETOH - HPI Notes: Patient is recommended for rescind of IVC is considered psychiatrically cleared for discharge. Patient denies suicidal ideation and does not meet criteria per [place] GS 122C. Patient is recommended to follow up with mental health provider of his choice. Patient was provided resource list. Patient's father whom the patient lives with confirms he will ensure patient has no access to medications or weapons. He also confirms he will since the patient in following up with mental health needs to include assessments and treatment. Dr. Griffin was consulted on the care and management of this patient; attending physician is in agreement with recommendations and disposition. (MINNIE BHAGAT) - Related Data Allergies/Adverse Reactions: oragel Allergy (Intermediate, Uncoded 01/30/17 23:29) ambesol Allergy (Mild, Uncoded 01/30/17 23:29) Past Medical History - Social History Smoking Status: Unknown if Ever Smoked Frequency of alcohol use: unknown Drug Abuse: Other - uknown Family History: Arthritis, CAD, COPD, DM, Hyperlipidemia, Hypertension - Past Medical History Cardiac Medical History: Reports: Hx Atrial Fibrillation - Resolved after cardiac ablation, Hx Hypertension Pulmonary Medical History: Reports: Hx Bronchitis, Hx COPD - Patient unclear about the Renal/ Medical History: Denies: Hx Peritoneal Dialysis Psychiatric Medical History: Reports: Hx Depression - In treatment through [facility] Past Surgical History: Reports: Hx Cardiac Catheterization - ablation, Hx Cardiac Surgery - "open heart to patch holes/valves" ablation - Immunizations Immunizations up to date: Yes Hx Diphtheria, Pertussis, Tetanus Vaccination: Yes - 2012 <MINNIE BHAGAT - Last Filed: 02/02/17 12:59> Course - Laboratory Result Diagrams: 01/31/17 23:30 01/31/17 23:30 <MINNIE BHAGAT - Last Filed: 02/02/17 12:59> - Laboratory Result Diagrams: 01/31/17 23:30 01/31/17 23:30 <DEREK CHUNG - Last Filed: 02/02/17 13:25> - Re-evaluation Re-evalutation: 02/02/17 13:25 Agree with assessment and plan. Patient will be discharged home follow-up with out patient providers. (DEREK CHUNG) - Vital Signs Vital signs: Temp Pulse Resp BP Pulse Ox 97.7 F 68 18 124/64 97 02/02/17 08:48 02/02/17 08:48 02/02/17 08:48 02/02/17 08:48 02/02/17 08:48 - Laboratory Laboratory results interpreted by me: 01/31/17 23:30 Sodium 146.8 H Chloride 109 H BUN 5 L Total Protein 6.2 L Salicylates < 1.0 L Acetaminophen < 10 L Discharge <MINNIE BHAGAT - Last Filed: 02/02/17 12:59> <DEREK CHUNG - Last Filed: 02/02/17 13:25> - Discharge Clinical Impression: Depressed Qualifiers: Depression Type: unspecified Qualified Code(s): F32.9 - Major depressive disorder, single episode, unspecified Disposition: HOME, SELF-CARE Instructions: Depression ([facility]) Additional Instructions: DEPRESSION: Your evaluation reveals that you have mental depression. While symptoms may be vague, they often include disturbance of sleep, fatigue, loss of appetite , and general loss of interest in life. While depression may be a side effect of drugs, or a reaction to a major change in your life, many cases have no known cause. If depression is acute, and related to a major loss in your life, you can expect it to clear completely with time. If you have been depressed a long time , are prone to repeated bouts of depression or low mood, or have been thinking of suicide, get help. Depression can be treated with anti-depressant medication and counselling. Long-term depression will often take a few weeks to clear, even with appropriate medication. Follow-up care is important. FOLLOW-UP CARE: If you have been referred to a mental health provider of your choice for follow- up care, call the physicians office for an appointment as you were instructed or within the next two days.~ If you experience worsening or a significant change in your symptoms, notify the physician immediately or return to the Emergency Department at any time for re-evaluation.
[2017-02-02 13:33] VITALS: BP 149/82
== END 2017-02-02 13:37 | disposition home or self-care (01) ==
LOC: ER 22:57
DX: F32.9 Major depressive disorder, single episode, unspecified (principal); F10.129 Alcohol abuse with intoxication, unspecified; F19.129 Other psychoactive substance abuse with intoxication, unspecified; R40.0 Somnolence; R11.10 Vomiting, unspecified; Y90.8 Blood alcohol level of 240 mg/100 ml or more; R00.0 Tachycardia, unspecified; I10 Essential (primary) hypertension; Z88.8 Allergy status to other drugs, medicaments and biological substances
CPT/HCPCS: 93005; 99285; 96361; 96374; 96375; 36415; 80307 ×4; 85025; 80053; 81001; 93010; J2310; J2765; J7030; S0164

== ENCOUNTER 2017-05-05 21:12 | Emergency (ER) | payer SELFPAY ==
[2017-05-05 22:17] LABS: ABSOLUTE EOSINOPHILS # (AUTO) 0.1 10^3/uL (0.0-0.6); ABSOLUTE LYMPHOCYTES (AUTO) 3.2 10^3/uL (0.5-4.7); ABSOLUTE MONOCYTES (AUTO) 0.8 10^3/uL (0.1-1.4); ABSOLUTE NEUT (AUTO) 5.5 10^3/uL (1.7-8.2); BASOPHILS % (AUTO) 0.5 % (0-2); EOSINOPHILS % (AUTO) 1.2 % (0-6); HEMATOCRIT 40.6 % (37.9-51.0); HEMOGLOBIN 13.7 g/dL (13.5-17.0); HGB HCT DIFFERENCE 0.5; LYMPHOCYTES % (AUTO) 32.6 % (13-45); MEAN CORPUSCULAR HEMOGLOBIN 32.3 pg (27.0-33.4); MEAN CORPUSCULAR HGB CONC 33.8 g/dL (32.0-36.0); MEAN CORPUSCULAR VOLUME 95 fl (80-97); MONOCYTES % (AUTO) 8.6 % (3-13); RED BLOOD COUNT 4.25 10^6/uL (4.35-5.55); SEGMENTED NEUTROPHILS % (AUTO) 57.1 % (42-78); WHITE BLOOD COUNT 9.7 10^3/uL (4.0-10.5)
[2017-05-05 22:33] LABS: ALANINE AMINOTRANSFERASE 31 U/L (21-72); ALKALINE PHOSPHATASE 64 U/L (38-126); ANION GAP 9 (5-19); ASPARTATE AMINO TRANSFERASE 17 U/L (17-59); BILIRUBIN,DIRECT 0.3 mg/dL (0.0-0.4); BILIRUBIN,TOTAL 0.5 mg/dL (0.2-1.3); BLOOD UREA NITROGEN 9 mg/dL (7-20); CARBON DIOXIDE 23 mmol/L (22-30); CHLORIDE 108 mmol/L (98-107); CREATINE KINASE 124 U/L (55-170); CREATININE RESULT 0.78 mg/dL (0.52-1.25); GLUCOSE 102 mg/dL (75-110); POTASSIUM 3.9 mmol/L (3.6-5.0); SODIUM 139.6 mmol/L (137-145); TOTAL PROTEIN 6.6 g/dL (6.3-8.2)
[2017-05-05 22:37] LABS: ADD ON TESTING BLD IN LAB ACKNOWLEDGE
[2017-05-05 22:45] LABS: ALCOHOL < 10 mg/dL (NONE DETECTED); CREATINE KINASE MB 0.71 ng/mL (<4.55)
[2017-05-05] MEDS ORDERED: KETOROLAC TROMETHAMINE INJ/PF 30 MG/1 ML SDV IV ONE (22:45)
[2017-05-05] MEDS ORDERED: IPRATROPIUM/ALBUTEROL 0.5-2.5 MG/3 ML AMPUL NEB ONE (22:45)
[2017-05-05] MEDS ORDERED: METHYLPREDNISOLONE INJ 125 MG/2 ML SDV IV ONE (22:45)
--- NOTE | 2017-05-05 22:46 | ER Document Report ---
ED General - General Chief Complaint: painful breathing Stated Complaint: PAINFUL BREATHING Time Seen by Provider: 05/05/17 22:17 Notes: Patient is a 46-year-old male with past medical history of COPD, A. fib, active tobacco use who presents with 24 hours of pain with breathing, cough and shortness of breath. States he tried his home Advair without improvement of symptoms. States symptoms are worsened by exertion or deep breathing. Notes he has had a history of similar symptoms in the past with prior asthma and COPD exacerbations. He has not seen his primary care doctor regarding today's concerns. Denies any hemoptysis, chest pain, syncope, vomiting or diarrhea. He has not had a fever. TRAVEL OUTSIDE OF THE [place] IN LAST 30 DAYS: No - Related Data Allergies/Adverse Reactions: oragel Allergy (Intermediate, Uncoded 01/30/17 23:29) ambesol Allergy (Mild, Uncoded 01/30/17 23:29) Past Medical History - General Information source: Patient - Social History Smoking Status: Never Smoker Frequency of alcohol use: None Drug Abuse: None Lives with: Family Family History: Arthritis, CAD, COPD, DM, Hyperlipidemia, Hypertension - Past Medical History Cardiac Medical History: Reports: Hx Atrial Fibrillation - Resolved after cardiac ablation, Hx Hypertension Pulmonary Medical History: Reports: Hx Bronchitis, Hx COPD - Patient unclear about the Renal/ Medical History: Denies: Hx Peritoneal Dialysis Psychiatric Medical History: Reports: Hx Depression - In treatment through [facility] Past Surgical History: Reports: Hx Cardiac Catheterization - ablation, Hx Cardiac Surgery - "open heart to patch holes/valves" ablation - Immunizations Immunizations up to date: Yes Hx Diphtheria, Pertussis, Tetanus Vaccination: Yes - 2012 Review of Systems - Review of Systems Notes: Constitutional: Negative for fever. HENT: Negative for sore throat. Eyes: Negative for visual changes. Cardiovascular: Negative for chest pain. Respiratory: Positive for shortness of breath. Gastrointestinal: Negative for abdominal pain, vomiting or diarrhea. Genitourinary: Negative for dysuria. Musculoskeletal: Negative for back pain. Skin: Negative for rash. Neurological: Negative for headaches, weakness or numbness. 10 point ROS negative except as marked above and in HPI. Physical Exam - Vital signs Vitals: Temp Pulse Resp BP Pulse Ox 98.5 F 81 20 129/77 H 98 05/05/17 21:25 05/05/17 21:25 05/05/17 21:25 05/05/17 21:25 05/05/17 21:25 Interpretation: Normal Notes: PHYSICAL EXAMINATION: GENERAL: Well-appearing, well-nourished and in no acute distress. HEAD: Atraumatic, normocephalic. EYES: Pupils equal round and reactive to light, extraocular movements intact, sclera anicteric, conjunctiva are normal. ENT: nares patent, oropharynx clear without exudates. Moist mucous membranes. NECK: Normal range of motion, supple without lymphadenopathy LUNGS: Breath sounds clear to auscultation bilaterally and equal. Scant wheezing bilaterally. HEART: Regular rate and rhythm without murmurs ABDOMEN: Soft, nontender, normoactive bowel sounds. No guarding, no rebound. No masses appreciated. EXTREMITIES: Normal range of motion, no pitting or edema. No cyanosis. NEUROLOGICAL: No focal neurological deficits. Moves all extremities spontaneously and on command. PSYCH: Normal mood, normal affect. SKIN: Warm, Dry, normal turgor, no rashes or lesions noted. 1 Course - Re-evaluation Re-evalutation: 05/05/17 22:45 Patient presents with a mild exacerbation of their baseline COPD. Mild wheezing at time of presentation but vitals do not show significant hypoxemia or tachypnea. No retractions. Patient did clinically improve after receiving nebulizers here in the emergency department. Chest x-ray without evidence of an acute pneumonia. Laboratories do not show acute kidney injury or significant leukocytosis. I do not clinically suspect a pulmonary embolus given patient's history and he is PERC criteria negative. Patient able to ambulate without any respiratory distress. Based on patient's overall reassuring assessment, I believe they are stable for outpatient management with steroids and oral antibiotics. Patient has nebulizers at home. I do not suspect an acute alternative pathology at this time based on history and exam including acute pulmonary embolus, ACS, pneumothorax, or aortic dissection. At this time will discharge with return precautions and follow-up recommendations. Verbal discharge instructions given a the bedside and opportunity for questions given. Medication warnings reviewed. Patient is in agreement with this plan and has verbalized understanding of return precautions and the need for primary care follow-up in the next 24-72 hours. - Vital Signs Vital signs: Temp Pulse Resp BP Pulse Ox 98.2 F 73 20 133/74 H 98 05/05/17 23:50 05/05/17 23:50 05/05/17 23:50 05/05/17 23:50 05/05/17 23:50 - Laboratory Result Diagrams: 05/05/17 22:03 05/05/17 22:03 Laboratory results interpreted by me: 05/05/17 05/05/17 22:03 22:03 RBC 4.25 L Chloride 108 H - Diagnostic Test Radiology reviewed: Image reviewed, Reports reviewed Radiology results interpreted by me: 05/05/17 23:37 Chest x-ray: No acute infiltrate or pneumothorax - EKG Interpretation by Me Additional EKG results interpreted by me: 05/06/17 02:[address] elevations or depressions. QTc 464. Discharge - Discharge Clinical Impression: COPD exacerbation, Pleurodynia Condition: Good Disposition: HOME, SELF-CARE Additional Instructions: You were seen for a COPD exacerbation. It is very important that you return to the emergency department immediately if you began to have worsening difficulty breathing that does not respond to the albuterol inhaler you have been sent home with. You are also being sent home on a five-day course of steroids that you should start taking tomorrow. Take the tesselon pearls as needed for cough. Please also follow closely with your primary care physician. You should return to emergency department if you develop fever greater than 101, persistent cough, persistent vomiting, pass out, or any other symptoms that are concerning to you. Prescriptions: Benzonatate [Tessalon Perles 100 mg Capsule] 100 mg PO Q8HP PRN #40 capsule PRN Reason: Prednisone [Deltasone 20 mg Tablet] 3 tab PO DAILY 5 Days
[2017-05-05 22:48] LABS: TROPONIN I < 0.012 ng/mL
--- NOTE | 2017-05-05 23:10 | RADIOLOGY REPORT (SQ) ---
EXAM DESCRIPTION: CHEST SINGLE VIEW COMPLETED DATE/TIME: 05/05/2017 10:16 pm REASON FOR STUDY: SOB COMPARISON: 12/06/2016 EXAM PARAMETERS: NUMBER OF VIEWS: One view. TECHNIQUE: Single frontal radiographic view of the chest acquired. RADIATION DOSE: NA LIMITATIONS: None. FINDINGS: LUNGS AND PLEURA: No acute opacities, masses or pneumothorax. No pleural effusion. MEDIASTINUM AND HILAR STRUCTURES: Stable. HEART AND VASCULAR STRUCTURES: Heart normal in size. Normal vasculature. BONES: No acute findings. HARDWARE: None in the chest. OTHER: No other significant finding. IMPRESSION: NO ACUTE RADIOGRAPHIC FINDING IN THE CHEST. TECHNICAL DOCUMENTATION: JOB ID: [id number]
[2017-05-05] MEDS ORDERED: BENZONATATE 100 MG CAPSULE PO ONE (23:37)
[2017-05-05] MEDS ORDERED: ALBUTEROL SULFATE HFA (90 MCG/PUFF) 8 GM MDI (1 MDI/ER DISP) IH PRN (23:40)
[2017-05-05 23:51] VITALS: BP 133/74
--- NOTE | 2017-05-06 08:07 | EKG REPORT ---
SEVERITY:- BORDERLINE ECG - SINUS RHYTHM PROBABLE LEFT ATRIAL ABNORMALITY BORDERLINE IVCD WITH LAD : Confirmed by: Colt Pinedo MD 06-May-2017 08:07:06
== END 2017-05-06 00:18 | disposition home or self-care (01) ==
LOC: ER 21:12
DX: J44.1 Chronic obstructive pulmonary disease with (acute) exacerbation (principal); R07.1 Chest pain on breathing; R07.81 Pleurodynia; R05 Cough; R06.02 Shortness of breath; I10 Essential (primary) hypertension
CPT/HCPCS: 93005; 94640; 99285; 96374; 96375; 36415; 87040; 82553; 80307; 82550; 85025; 80053; 84484; 71010; 93010; J2930; J1885; J7620

== ENCOUNTER 2017-06-04 18:16 | Emergency (ER) | payer SELFPAY ==
[2017-06-04] MEDS ORDERED: OXYCODONE-ACETAMINOPHEN 5-325 MG TABLET PO ONE (19:12)
--- NOTE | 2017-06-04 19:13 | ER Document Report ---
HPI - HPI Patient complains to provider of: knee injury Onset: This evening Onset/Duration: Sudden Quality of pain: Sharp Pain Level: 5 Context: Patient states that he slipped on his wet kitchen floor landing on his left knee. Patient complains of pain with fully extending his left knee. Patient denies any other injury. Associated Symptoms: Other - left knee pain Exacerbated by: Movement, Walking Relieved by: Denies Similar symptoms previously: No Recently seen / treated by doctor: No - ROS ROS below otherwise negative: Yes Systems Reviewed and Negative: Yes All other systems reviewed and negative - CONSTITUTIONAL Constitutional: DENIES: Fever, Chills - NEURO Neurology: DENIES: Weakness - MUSCULOSKELETAL Musculoskeletal: REPORTS: Extremity pain. DENIES: Swelling - DERM Skin Color: Normal Skin Problems: None Past Medical History - General Information source: Patient - Social History Smoking Status: Current Every Day Smoker Frequency of alcohol use: None Drug Abuse: None Occupation: none Family History: Arthritis, CAD, COPD, DM, Hyperlipidemia, Hypertension Patient has suicidal ideation: No Patient has homicidal ideation: No - Past Medical History Cardiac Medical History: Reports: Hx Atrial Fibrillation - Resolved after cardiac ablation, Hx Hypertension Pulmonary Medical History: Reports: Hx Bronchitis, Hx COPD - Patient unclear about the Renal/ Medical History: Denies: Hx Peritoneal Dialysis Psychiatric Medical History: Reports: Hx Depression - In treatment through [facility] Past Surgical History: Reports: Hx Cardiac Catheterization - ablation, Hx Cardiac Surgery - "open heart to patch holes/valves" ablation - Immunizations Immunizations up to date: Yes Hx Diphtheria, Pertussis, Tetanus Vaccination: Yes - 2013 [facility] Provider Document - CONSTITUTIONAL Agree With Documented VS: Yes Exam Limitations: No Limitations General Appearance: WD/WN, No Apparent Distress - INFECTION CONTROL TRAVEL OUTSIDE OF THE [place] IN LAST 30 DAYS: No - HEENT HEENT: Atraumatic, Normocephalic - NECK Neck: Normal Inspection - RESPIRATORY Respiratory: Breath Sounds Normal, No Respiratory Distress O2 Sat by Pulse Oximetry: 98 - CARDIOVASCULAR Cardiovascular: Regular Rate, Regular Rhythm, No Murmur Pulses: Normal: Posterior tibial - MUSCULOSKELETAL/EXTREMETIES Musculoskeletal/Extremeties: MAEW, Tender - pain to left Knee tibial tuberosity. No joint effusion, no laxity with varus or valgus maneuvers. Normal skin color and temperature overlying joint. - NEURO Level of Consciousness: Awake, Alert, Appropriate Motor/Sensory: No Motor Deficit, No Sensory Deficit - DERM Integumentary: Warm, Dry, No Rash Course - Vital Signs Vital signs: Temp Pulse Resp BP Pulse Ox 99.3 F 82 18 159/80 H 98 06/04/17 18:30 06/04/17 18:30 06/04/17 18:30 06/04/17 18:30 06/04/17 18:30 - Diagnostic Test Radiology reviewed: Reports reviewed Procedures - Immobilization Left Knee Pre-Proc Neuro Vasc Exam: Normal Immobilizer type: Yobany wrap Performed by: PCT Post-Proc Neuro Vasc Exam: Normal Alignment checked and good: Yes Discharge - Discharge Clinical Impression: Hx of essential hypertension Fall Qualifiers: Encounter type: initial encounter Qualified Code(s): W19.XXXA - Unspecified fall, initial encounter Left knee sprain Qualifiers: Encounter type: initial encounter Involved ligament of knee: unspecified ligament Qualified Code(s): S83.92XA - Sprain of unspecified site of left knee, initial encounter Condition: Stable Disposition: HOME, SELF-CARE Instructions: Use of Crutches ([facility]), Ice & Elevation ([facility]), Sprained Knee ([facility]) , Oral Narcotic Medication ([facility]), Yobany Wrap ([facility]) Additional Instructions: Return immediately for any new or worsening symptoms Followup with your primary care provider, call tomorrow to make a followup appointment Weight bearing as tolerated Follow-up with orthopedic doctor for any continued pain or problems Prescriptions: Acetaminophen with Codeine [Acetaminophen-Cod #3 Tablet] 1 each PO Q6 PRN #15 tablet PRN Reason: Forms: Elevated Blood Pressure Referrals: AUREA CONTRERAS DO [Primary Care Provider] - Follow up as needed [facility] [Provider Group] - Follow up as needed
--- NOTE | 2017-06-04 19:47 | RADIOLOGY REPORT (SQ) ---
EXAM DESCRIPTION: KNEE LEFT 4 VIEW COMPLETED DATE/TIME: 06/04/2017 7:29 pm REASON FOR STUDY: fall, pain to tibial tuberosity COMPARISON: None. NUMBER OF VIEWS: Four views. TECHNIQUE: AP, lateral, and both oblique radiographic images acquired of the left knee. LIMITATIONS: None. FINDINGS: MINERALIZATION: Normal. BONES: No acute fracture or dislocation. No worrisome bone lesions. No significant osteophytes. JOINT: No effusion. No chondrocalcinosis. OTHER: No other significant finding. IMPRESSION: NEGATIVE STUDY OF THE LEFT KNEE. NO EXPLANATION FOR PAIN. TECHNICAL DOCUMENTATION: JOB ID: [id number] [employer]- All Rights Reserved
[2017-06-04 20:42] VITALS: BP 148/84
== END 2017-06-04 20:39 | disposition home or self-care (01) ==
LOC: ER 18:16
DX: S83.92XA Sprain of unspecified site of left knee, initial encounter (principal); W01.0XXA Fall on same level from slipping, tripping and stumbling without subsequent striking against object, initial encounter; Y92.000 Kitchen of unspecified non-institutional (private) residence as the place of occurrence of the external cause; F17.200 Nicotine dependence, unspecified, uncomplicated; I10 Essential (primary) hypertension
CPT/HCPCS: 99283

== ENCOUNTER 2017-06-17 07:55 | Emergency (ER) | payer SELFPAY ==
[2017-06-17 08:04] VITALS: BP 131/85
[2017-06-17] MEDS ORDERED: CLINDAMYCIN HCL 150 MG CAPSULE PO ONE (08:23)
[2017-06-17] MEDS ORDERED: HYDROCODONE/ACETAMINOPHEN 5-325 MG TABLET PO ONE (08:24)
--- NOTE | 2017-06-17 08:24 | ER Document Report ---
ED Oral Problem - General Mode of Arrival: Ambulatory Information source: Patient TRAVEL OUTSIDE OF THE [place] IN LAST 30 DAYS: No - HPI Patient complains to provider of: Swelling of face, Toothache Onset: This morning Associated symptoms: Other - see above - General Chief Complaint: Toothache Stated Complaint: MOUTH PAIN/SWELLING Time Seen by Provider: 06/17/17 08:13 Notes: Patient is a 46 year old male who presents to the ED with complaints of right upper tooh pain and right sided facial swelling with onset this morning. PAtient states his tooth has been bad for a while but states he woke up with the swelling like this. Patient states he has not had a way for getting the teeth taken care of as he has no insurance. (CHON BAÑUELOS) - Related Data Allergies/Adverse Reactions: oragel Allergy (Intermediate, Uncoded 06/17/17 08:14) ambesol Allergy (Mild, Uncoded 06/17/17 08:14) Home Medications: Current Home Medications Lisinopril 20 mg PO DAILY 06/17/17 [History] Past Medical History - General Information source: Patient - Social History Smoking Status: Current Every Day Smoker Chew tobacco use (# tins/day): No Frequency of alcohol use: Occasional Drug Abuse: None Family History: Arthritis, CAD, COPD, DM, Hyperlipidemia, Hypertension Patient has suicidal ideation: No Patient has homicidal ideation: No - Past Medical History Cardiac Medical History: Reports: Hx Atrial Fibrillation - Resolved after cardiac ablation, Hx Hypertension Pulmonary Medical History: Reports: Hx Bronchitis, Hx COPD Renal/ Medical History: Denies: Hx Peritoneal Dialysis Psychiatric Medical History: Reports: Hx Depression Past Surgical History: Reports: Hx Cardiac Catheterization - ablation, Hx Cardiac Surgery - as a child - Immunizations Immunizations up to date: Yes Hx Diphtheria, Pertussis, Tetanus Vaccination: Yes - 2012 Review of Systems - Review of Systems Constitutional: No symptoms reported EENT: See HPI, Mouth swelling, Dental problem Cardiovascular: No symptoms reported Respiratory: No symptoms reported Gastrointestinal: No symptoms reported Genitourinary: No symptoms reported Male Genitourinary: No symptoms reported Musculoskeletal: No symptoms reported Skin: No symptoms reported Hematologic/Lymphatic: No symptoms reported Neurological/Psychological: No symptoms reported Physical Exam - General General appearance: Appears well, Alert In distress: None - HEENT Head: Normocephalic, Atraumatic Eyes: Normal Extraocular movements intact: Yes Pupils: PERRL Nasal: Other - gross swelling and induration to right maxillary face, upper teeth on the right are almost all decayed and broken off at the gums, 2 right upper molars on the right project below the gum line and are equisitly tender to percussion, cannot tell where tenderness is coming from, over the 1st molar on the upper right gum line there is an abscessed area that is eroded and starting to drain - Respiratory Respiratory status: No respiratory distress - Cardiovascular Rhythm: Regular - Abdominal Distension: No distension - Back Back: Normal - Extremities General upper extremity: Normal inspection, Normal ROM General lower extremity: Normal inspection, Normal ROM - Neurological Neuro grossly intact: Yes - Psychological Associated symptoms: Normal affect, Normal mood - Skin Skin Temperature: Warm Skin Moisture: Dry Skin Color: Normal - Vital signs Vitals: Temp Pulse Resp BP Pulse Ox 98.7 F 75 12 131/85 H 98 06/17/17 08:00 06/17/17 08:00 06/17/17 08:00 06/17/17 08:00 06/17/17 08:00 - Vital Signs Vital signs: Temp Pulse Resp BP Pulse Ox 98.7 F 75 12 131/85 H 98 06/17/17 08:00 06/17/17 08:00 06/17/17 08:00 06/17/17 08:00 06/17/17 08:00 Discharge - Discharge Clinical Impression: Dental abscess Instructions: Dentist Additional Instructions: Dental Infection or Abscess You have an infection, perhaps an abscess (pus formation) of the gum around one of your teeth, which is probably decayed. If there is an abscess, it may drain on its own or it may need to be opened or lanced. Severe swelling or drainage around a tooth usually means a deep dental abscess which usually requires evaluation and treatment by a dentist or oral surgeon. Antibiotics may be prescribed while awaiting dental treatment. If you develop high fever with chills, worsening pain, or increasing swelling in the area, see a dentist or oral surgeon immediately or return to the Emergency Department immediately. Take the medication as prescribed. Use warm soaks to the right face. Rest and sleep in the upright position, such as in a recliner. Follow-up with a local dentist. RETURN TO THE EMERGENCY ROOM IF ANY NEW OR WORSENING SYMPTOMS. Prescriptions: Clindamycin HCl 300 mg PO QID #56 capsule Hydrocodone/Acetaminophen [Amberson 5-325 mg Tablet] 1 tab PO Q4 PRN #15 tablet PRN Reason: Scribe Attestation: 06/17/17 08:29 I personally performed the services described in the documentation, reviewed and edited the documentation which was dictated to the scribe in my presence, and it accurately records my words and actions. (LISA PETERS) Scribe Documentation - Scribe Written by Kam:: kam Haas, 06/17/2017, 821 acting as scribe for :: Eleanor
== END 2017-06-17 08:45 | disposition home or self-care (01) ==
LOC: ER 07:55
DX: K04.7 Periapical abscess without sinus (principal); R22.0 Localized swelling, mass and lump, head; F17.200 Nicotine dependence, unspecified, uncomplicated; I48.91 Unspecified atrial fibrillation; J44.9 Chronic obstructive pulmonary disease, unspecified
CPT/HCPCS: 99282

== ENCOUNTER 2017-10-01 18:16 | Emergency (ER) | payer SELFPAY ==
[2017-10-01] MEDS ORDERED: PROCHLORPERAZINE MALEATE 10 MG TABLET PO ONE (19:49)
[2017-10-01] MEDS ORDERED: DIPHENHYDRAMINE HCL 50 MG CAPSULE PO ONE (19:49)
[2017-10-01] MEDS ORDERED: IBUPROFEN 600 MG TABLET PO ONE (19:49)
[2017-10-01] MEDS ORDERED: PREDNISONE 20 MG TABLET PO ONE (19:51)
--- NOTE | 2017-10-01 20:05 | ER Document Report ---
ED Respiratory Problem - General Chief Complaint: Rib Pain Stated Complaint: HEADACHE,ABDOMINAL PAIN,SHORT OF BREATH Time Seen by Provider: 10/01/17 19:42 Mode of Arrival: Ambulatory Information source: Patient Notes: 47-year-old male complaining of cough congestion with sputum for the last 3-4 days with rib pain due to the coughing. He states he also has a headache. States he has gas for the last 2448 hrs. Before that he was having diarrhea. Denies any fever. TRAVEL OUTSIDE OF THE [place] IN LAST 30 DAYS: No - HPI Patient complains to provider of: Cough, Short of breath Onset: Other - 3-4 Initiating Event: URI, Other - smoker Quality of pain: Achy, Sharp Severity: Severe Pain Level: 5 Context: Smoker, Other - short of breath Short of Breath: Mild Cough: Productive Sputum amount: Small Sputum color: Green At home treatment: Bronchodilators Associated symptoms: Chest pain/discomfort, Cough, Headache, PND, Runny nose, Sinus pain/pressure Similar symptoms previously: Yes Recently seen / treated by doctor: No - Related Data Allergies/Adverse Reactions: oragel Allergy (Intermediate, Uncoded 10/01/17 18:21) ambesol Allergy (Mild, Uncoded 10/01/17 18:21) Past Medical History - General Information source: Patient - Social History Smoking Status: Current Every Day Smoker Cigarette use (# per day): Yes - 5 cigarettes a day Chew tobacco use (# tins/day): No Smoking Education Provided: Yes - Less than 2 minutes Frequency of alcohol use: Social Drug Abuse: None Occupation: None Lives with: Parents Family History: Arthritis, CAD, COPD, DM, Hyperlipidemia, Hypertension. denies : CVA, Malignancy, Thyroid Disfunction Patient has suicidal ideation: No Patient has homicidal ideation: No - Past Medical History Cardiac Medical History: Reports: Hx Atrial Fibrillation - Resolved after cardiac ablation, Hx Hypertension Pulmonary Medical History: Reports: Hx Bronchitis, Hx COPD EENT Medical History: Reports: None Neurological Medical History: Reports: None Endocrine Medical History: Reports: None Renal/ Medical History: Reports: None Malignancy Medical History: Reports None GI Medical History: Reports: None Musculoskeltal Medical History: Reports Hx Arthritis, Reports Hx Musculoskeletal Deformity, Reports Hx Musculoskeletal Trauma - Herniated disc sciatica chronic pain in his back Skin Medical History: Reports None Psychiatric Medical History: Reports: Hx Anxiety, Hx Attention Deficit Hyperactivity Disorder, Hx Depression Traumatic Medical History: Reports: None Infectious Medical History: Reports: None Past Surgical History: Reports: Hx Cardiac Catheterization - ablation, Hx Cardiac Surgery - as a child - Immunizations Immunizations up to date: Yes Hx Diphtheria, Pertussis, Tetanus Vaccination: Yes - 2012 Review of Systems - Review of Systems Constitutional: Recent illness EENT: Nose discharge, Sinus discharge Cardiovascular: No symptoms reported Respiratory: Cough, Short of breath Gastrointestinal: No symptoms reported Genitourinary: No symptoms reported Male Genitourinary: No symptoms reported Musculoskeletal: No symptoms reported Skin: No symptoms reported Hematologic/Lymphatic: No symptoms reported Neurological/Psychological: No symptoms reported -: Yes All other systems reviewed and negative Physical Exam - Vital signs Vitals: Temp Pulse Resp BP Pulse Ox 99.1 F 87 18 138/77 H 97 10/01/17 18:50 10/01/17 18:50 10/01/17 18:50 10/01/17 18:50 10/01/17 18:50 Interpretation: Normal - General General appearance: Appears well, Alert - HEENT Head: Normocephalic, Atraumatic Eyes: Normal Pupils: PERRL Ears: Normal External canal: Normal Sinus: Normal Nasal: Purulent discharge, Swelling Mouth/Lips: Normal Mucous membranes: Normal Pharynx: Post nasal drainage Neck: Normal - Respiratory Respiratory status: No respiratory distress Chest status: Nontender Breath sounds: Productive cough Chest palpation: Normal - Cardiovascular Rhythm: Regular Heart sounds: Normal auscultation Murmur: No - Abdominal Inspection: Normal Distension: No distension Bowel sounds: Normal Tenderness: Nontender Organomegaly: No organomegaly - Back Back: Normal, Nontender - Extremities General upper extremity: Normal inspection, Nontender, Normal color, Normal ROM , Normal temperature General lower extremity: Normal inspection, Nontender, Normal color, Normal ROM , Normal temperature, Normal weight bearing. No: Gricelda's sign - Neurological Neuro grossly intact: Yes Cognition: Normal Orientation: AAOx4 Power Coma Scale Eye Opening: Spontaneous Power Coma Scale Verbal: Oriented Power Coma Scale Motor: Obeys Commands Power Coma Scale Total: 15 Speech: Normal Motor strength normal: LUE, RUE, LLE, RLE Sensory: Normal - Psychological Associated symptoms: Normal affect, Normal mood - Skin Skin Temperature: Warm Skin Moisture: Dry Skin Color: Normal Course - Re-evaluation Re-evalutation: 10/01/17 21:14 Chest x-rays with patient. Patient was treated with prednisone and albuterol nebulizers for his upper respiratory infection with cough and tight lungs. Patient will be discharged home with a prescription for an albuterol inhaler and prednisone. Patient to follow-up with his primary doctor. - Vital Signs Vital signs: Temp Pulse Resp BP Pulse Ox 98.1 F 80 17 128/84 H 100 10/01/17 21:47 10/01/17 21:47 10/01/17 21:47 10/01/17 21:47 10/01/17 21:47 - Diagnostic Test Radiology reviewed: Image reviewed, Reports reviewed Discharge - Discharge Clinical Impression: URI (upper respiratory infection) Qualifiers: URI type: unspecified URI Qualified Code(s): J06.9 - Acute upper respiratory infection, unspecified Condition: Stable Disposition: HOME, SELF-CARE Instructions: Family Physicians / Practices Additional Instructions: UPPER RESPIRATORY ILLNESS: You have a viral infection of the respiratory passages -- a "cold." This common infection causes nasal congestion, drainage, and often sore throat and cough. It is highly contagious. The disease usually lasts about 10 to 14 days. There is no "cure" for the viral infection -- it must run its course. If there is a complication, such as bacterial infection in the nose, sinuses, middle ear, or bronchial tubes, antibiotics may be required. The antibiotics won't affect the virus. Drink plenty of fluids. A humidifier may help. An expectorant medication or decongestant may make you more comfortable. Use acetaminophen or ibuprofen for fever or aches. See the doctor if fever persists over two days, if there is any significant worsening of your symptoms, or if you simply fail to improve as expected. BRONCHOSPASM: You have tightness in the bronchial tubes, called bronchospasm. This often occurs with bronchial infections. Allergies, inhaled chemicals, and polluted or cold air can also provoke bronchospasm. It's more likely in patients with asthma in the family. Emergency treatment of bronchospasm may include adrenaline shots or bronchodilator aerosol. You may feel lightheaded and have a rapid pulse for an hour or two. Rest and get plenty of fluids. At home, we'll treat you with a bronchodilator inhaler. Antibiotics and corticosteroids may be required for some patients. Until you recover, avoid chemical fumes, dusts, pollens, and exercising in very cold or dry air. If you smoke, stop now!! If you develop a fever, increased wheezing, chest pain, or severe shortness of breath, you should contact the doctor immediately. COUGH-SUPPRESSANT & EXPECTORANT MEDICATION: You are to use a cough medication as needed for relief of symptoms. This medicine is a combination of an expectorant (to make the mucous thinner and more easily "coughed up") and a cough suppressant (to reduce the frequency of coughing). The cough-suppressant medicine is related to narcotics. You may experience mild nausea and sleepiness. Some patients who are very sensitive to narcotics may have stomach pain from this medicine. Taking the medicine with food reduces these side effects. Do not drive or work with machinery until you know how this medicine affects you. The expectorant should have no side effects. Iodine-containing expectorants (such as organidin) should not be taken by persons with active thyroid disease unless approved by your doctor. Call the doctor if you develop shortness of breath, hives, rash, itching, lightheadedness, or severe nausea and vomiting. INHALED BRONCHODILATORS: You have received a treatment of and/or prescription for an inhaled bronchodilator -- a medication which stimulates the airways in the lung to dilate. This improves the flow of air in asthma, bronchitis, and emphysema. These medicines have some similarity to adrenaline, and can cause similar side effects: shakiness, racing heart, and a sense of nervousness. These side effects decrease with time. Contact your doctor if these side effects are severe. Do not over-use the medicine. Too-frequent use of the inhaler may make it ineffective. Call your doctor if the inhaler is not controlling your symptoms at the prescribed doses. STEROID MEDICATION: You have been given an injection of or oral medicine of the cortisone/ steroid class. This medication is used to control inflammation or allergy. Garfield t is usually only given for a short period of time, until the acute process subsides. There are usually no side effects from short-term use of cortisone-like medications. Some persons feel an increased sense of well-being and are not sleepy at bedtime. Long-term use of cortisone medications is best avoided, unless required for a severe condition. If your condition does not remit, or relapses after the course of corticosteroid medication, you should consult your physician. USE OF ACETAMINOPHEN (Tylenol): Acetaminophen may be taken for pain relief or fever control. It's much safer than aspirin, offering a wider range of "safe" dosages. It is safe during . Some brand names are Tylenol, Panadol, Datril, Anacin 3, Tempra, and Liquiprin. Acetaminophen can be repeated every four hours. The following are maximum recommended dosages: >89 pounds or adults 650 mg to 900 mg Acetaminophen can be repeated every four hours. Maximum dose not to exceed 4000 mg a day. SMOKING: If you smoke, you should stop smoking. The tar and chemicals in cigarette smoke are harmful. Smoking has been shown to cause: emphysema chronic bronchitis lung cancer mouth and throat cancer stomach and pancreas cancer premature aging defects In addition, smoking increases ear and lung infections in children of smokers. FOLLOW-UP CARE: If you have been referred to a physician for follow-up care, call the physician s office for an appointment as you were instructed or within the next two days. If you experience worsening or a significant change in your symptoms, notify the physician immediately or return to the Emergency Department at any time for re-evaluation. Prescriptions: Albuterol Sulfate [Proair HFA Inhalation Aerosol 8.5 gm MDI] 2 puff IH Q4H PRN # 1 mdi PRN Reason: Prednisone [Sterapred Ds] 1 pkg PO ASDIR PRN 12 Days [id number] PRN Reason: Forms: Smoking Cessation Education, Elevated Blood Pressure Referrals: AUREA CONTRERAS DO [Primary Care Provider] - Follow up as needed
[2017-10-01] MEDS: ALBUTEROL SULFATE 0.083% NEB 2.5 MG/3 ML AMPUL NEB SCH ×2 (20:41→21:09)
--- NOTE | 2017-10-01 20:49 | RADIOLOGY REPORT (SQ) ---
EXAM DESCRIPTION: CHEST PA/LAT COMPLETED DATE/TIME: 10/01/2017 8:23 pm REASON FOR STUDY: cough congestion short of breath COMPARISON: November 2016 EXAM PARAMETERS: NUMBER OF VIEWS: two views TECHNIQUE: Digital Frontal and Lateral radiographic views of the chest acquired. RADIATION DOSE: NA LIMITATIONS: none FINDINGS: LUNGS AND PLEURA: No opacities, masses or pneumothorax. No pleural effusion. MEDIASTINUM AND HILAR STRUCTURES: No masses or contour abnormalities. HEART AND VASCULAR STRUCTURES: Heart normal size. No evidence for failure. BONES: No acute findings. HARDWARE: Patient is status post median sternotomy. OTHER: No other significant finding. IMPRESSION: No significant interval change. No acute changes. Other findings as noted above TECHNICAL DOCUMENTATION: JOB ID: [id number] [employer]- All Rights Reserved
[2017-10-01 21:47] VITALS: BP 128/84
== END 2017-10-01 21:47 | disposition home or self-care (01) ==
LOC: ER 18:16
DX: J06.9 Acute upper respiratory infection, unspecified (principal); R51 Headache; F17.210 Nicotine dependence, cigarettes, uncomplicated; I10 Essential (primary) hypertension
CPT/HCPCS: 94640 ×2; 99283; 87804; 71020; J7512; S0183

== ENCOUNTER 2017-11-04 19:26 | Emergency (ER) | payer SELFPAY ==
[2017-11-04 19:41] VITALS: BP 141/94
[2017-11-04] MEDS ORDERED: KETOROLAC TROMETHAMINE INJ/PF 30 MG/1 ML SDV IM ONE (20:30)
--- NOTE | 2017-11-04 20:30 | ER Document Report ---
HPI - HPI Patient complains to provider of: Back pain Pain Level: 4 Context: Patient is a 47-year-old male presents emergency bathroom after slipping while leaving the hospital. Patient states that he slipped and fell landing on his bottom. He admits to pain in his sacrum and in his lower back. Patient states he does have a history of chronic back pain and that he does not follow primary care provider for it. He denies any head injury, loss of consciousness. Was able to walk back into the ER. - CONSTITUTIONAL Constitutional: DENIES: Fever, Chills - EENT EENT: DENIES: Sore Throat, Ear Pain, Eye problems - NEURO Neurology: DENIES: Headache, Weakness, Vision blurred, Dizzinesss / Vertigo - CARDIOVASCULAR Cardiovascular: DENIES: Chest pain - RESPIRATORY Respiratory: DENIES: Trouble Breathing, Coughing - GASTROINTESTINAL Gastrointestinal: DENIES: Abdominal Pain, Black / Bloody Stools - URINARY Urinary: DENIES: Dysuria, Urgency, Frequency - REPRODUCTIVE Reproductive: DENIES: : - MUSCULOSKELETAL Musculoskeletal: DENIES: Extremity pain Past Medical History - Social History Smoking Status: Unknown if Ever Smoked Family History: Arthritis, CAD, COPD, DM, Hyperlipidemia, Hypertension. denies : CVA, Malignancy, Thyroid Disfunction Patient has suicidal ideation: No Patient has homicidal ideation: No - Past Medical History Cardiac Medical History: Reports: Hx Atrial Fibrillation - Resolved after cardiac ablation, Hx Hypertension Pulmonary Medical History: Reports: Hx Bronchitis, Hx COPD Renal/ Medical History: Denies: Hx Peritoneal Dialysis Musculoskeltal Medical History: Reports Hx Arthritis, Reports Hx Musculoskeletal Deformity, Reports Hx Musculoskeletal Trauma - Herniated disc sciatica chronic pain in his back Psychiatric Medical History: Reports: Hx Anxiety, Hx Attention Deficit Hyperactivity Disorder, Hx Depression Past Surgical History: Reports: Hx Cardiac Catheterization - ablation, Hx Cardiac Surgery - as a child - Immunizations Immunizations up to date: Yes Hx Diphtheria, Pertussis, Tetanus Vaccination: Yes - 2012 Vertical Provider Document - CONSTITUTIONAL Agree With Documented VS: Yes Notes: PHYSICAL EXAM GENERAL: Alert, interacts well. HEAD: Normocephalic, atraumatic. Back: Paralumbar muscular tenderness bilaterally with no spinous process deformities, step-offs or tenderness. EXTREMITIES: Moves all 4 extremities spontaneously. No edema, radial and dorsalis pedis pulses 2/4 bilaterally. No cyanosis. NEUROLOGICAL: normal gait. 5 out of 5 strength in both the distal and proximal upper and lower extremities bilaterally. Sensation is grossly intact throughout. PSYCH: Normal affect, normal mood. SKIN: Warm, dry, normal turgor. No rashes or lesions noted. - INFECTION CONTROL TRAVEL OUTSIDE OF THE [place] IN LAST 30 DAYS: No - RESPIRATORY O2 Sat by Pulse Oximetry: 98 Course - Re-evaluation Re-evalutation: 11/04/17 21:35 Patient is a 47-year-old male is hemodynamic stable, no acute distress and afebrile. Patient presents with acute on chronic low back pain without signs of spinal cord compression, cauda equina syndrome, infection, aneurysm, or other serious etiology. X-ray of the lumbar spine and sacrum does not show any evidence of fracture the patient is neurologically intact. Given the extremely low risk of these diagnoses further testing and evaluation for these possibilities does not appear to be indicated at this time. The patient has been instructed to return if the symptoms worsen or change in any way. - Vital Signs Vital signs: Temp Pulse Resp BP Pulse Ox 98.8 F 92 16 141/94 H 98 11/04/17 19:39 11/04/17 19:39 11/04/17 19:39 11/04/17 19:39 11/04/17 19:39 Discharge - Discharge Clinical Impression: Low back pain Qualifiers: Chronicity: chronic Back pain laterality: bilateral Sciatica presence: with sciatica Sciatica laterality: sciatica of left side Qualified Code(s): M54.42 - Lumbago with sciatica, left side HTN (hypertension) Qualifiers: Hypertension type: unspecified Qualified Code(s): I10 - Essential (primary) hypertension Condition: Good Disposition: HOME, SELF-CARE Additional Instructions: LOW BACK PAIN: Three out of every four people will have an episode of disabling back pain during their lifetime. Most commonly the pain is due to straining of the muscles and ligaments in the low back. Usual treatment includes: (1) Rest on a firm surface. Avoid lying on your stomach. (2) Ice pack the painful area. After a few days, gentle heat may be used intermittently to relax the area, or ice packs can be continued. (3) Medication may be needed -- muscle relaxers and antiinflammatory medicines are commonly used. (4) As the back improves, exercises are prescribed to strengthen the back and abdominal muscles. Your doctor will advise you on the proper care for your back at each stage in your recovery. You may be better in a few days -- or healing may take several weeks. If new symptoms of a "herniated disc" (radiation of pain, numbness, or tingling down the back of the leg or weakness in the leg) occur, you should be re-examined. Further testing may be necessary. MUSCLE RELAXERS: Muscle relaxing medications are usually prescribed for acute muscle spasm or injury to the neck and back. They are often combined with antiinflammatory pain medication for increased relief. You may stop the muscle relaxer when the pain and stiffness have improved. Start the medication again if spasms recur. Muscle relaxers may cause drowsiness, especially with the first dose. Do not operate machinery or drive while under the effects of the medication. Most muscle relaxers last up to 24 hours. Do not combine the medication with alcohol. ICE PACKS: Apply ice packs frequently against the painful area. Many different schedules are recommended, such as "20 minutes on, 20 minutes off" or "one hour ice, two hours rest." If you need to work, you may need to go longer between ice treatments. You should plan to have the area ice packed AT LEAST one fourth of the time. The ice should be applied over the wrap, tape, or splint, or over a layer of cloth -- not directly against the skin. Some ice bags have a built-in cloth and can be put directly on the skin. WARM PACKS: After approximately two days, apply gentle heat (such as a heating pad or hot water bottle) for about 20 to 30 minutes about every two hours -- at least four times daily. Warmth and elevation will help you make a more rapid recovery , and will ease the pain considerably. Do not use HOT heat, and never apply heat for longer than 30 minutes. The continuous heat can invisibly damage skin and muscles -- even when no burn is seen on the surface. Damaged muscles can make you MORE sore. FOLLOW-UP CARE: If you have been referred to a physician for follow-up care, call the physician s office for an appointment as you were instructed or within the next two days. If you experience worsening or a significant change in your symptoms, notify the physician immediately or return to the Emergency Department at any time for re-evaluation. Prescriptions: Cyclobenzaprine HCl [Flexeril 10 mg Tablet] 10 mg PO TIDP PRN #15 tab PRN Reason: Ibuprofen [Motrin 800 mg Tablet] 800 mg PO Q8H PRN #30 tab PRN Reason: Forms: Elevated Blood Pressure Referrals: [facility] [Provider Group] - Follow up as needed [facility] [Provider Group] - Follow up in 1 week
--- NOTE | 2017-11-04 21:02 | RADIOLOGY REPORT (SQ) ---
EXAM DESCRIPTION: SACRUM AND COCCYX COMPLETED DATE/TIME: 11/04/2017 8:53 pm REASON FOR STUDY: fall COMPARISON: None. NUMBER OF VIEWS: Three views. TECHNIQUE: AP, lateral, and tilt views of the sacrum and coccyx. LIMITATIONS: None. FINDINGS: MINERALIZATION: Normal. BONES: No acute fracture or dislocation. No worrisome bone lesions. SOFT TISSUES: No soft tissue swelling. No foreign body. OTHER: No other significant finding. IMPRESSION: NEGATIVE STUDY OF THE SACRUM AND COCCYX. TECHNICAL DOCUMENTATION: JOB ID: [id number] [employer]- All Rights Reserved
--- NOTE | 2017-11-04 21:03 | RADIOLOGY REPORT (SQ) ---
EXAM DESCRIPTION: L SPINE WHOLE COMPLETED DATE/TIME: 11/04/2017 8:53 pm REASON FOR STUDY: fall COMPARISON: None. NUMBER OF VIEWS: Five views including obliques. TECHNIQUE: AP, lateral, oblique, and sacral radiographic images acquired of the lumbar spine. LIMITATIONS: None. FINDINGS: MINERALIZATION: Normal. SEGMENTATION: Normal. No transitional anatomy. ALIGNMENT: Normal. VERTEBRAE: Maintained height. No fracture or worrisome bone lesion. DISCS: Multilevel disc space narrowing with osteophytes. POSTERIOR ELEMENTS: Pedicles and facets are intact. No pars defect or posterior arch defects. Facet arthropathy is present. HARDWARE: None in the spine. PARASPINAL SOFT TISSUES: Normal. PELVIS: Intact as visualized. No fractures or worrisome bone lesions. SI joints intact. OTHER: No other significant finding. IMPRESSION: SPONDYLOSIS WITHOUT BONE LESION OR FRACTURE. TECHNICAL DOCUMENTATION: JOB ID: [id number] [employer]- All Rights Reserved
== END 2017-11-04 21:50 | disposition home or self-care (01) ==
LOC: ER 19:26
DX: M54.42 Lumbago with sciatica, left side (principal); I10 Essential (primary) hypertension; W01.0XXA Fall on same level from slipping, tripping and stumbling without subsequent striking against object, initial encounter; Y92.239 Unspecified place in hospital as the place of occurrence of the external cause; J44.9 Chronic obstructive pulmonary disease, unspecified
CPT/HCPCS: 99283; 96372; 72220; 72110; J1885

== ENCOUNTER 2017-12-06 14:35 | Emergency (ER) | payer SELFPAY ==
[2017-12-06] MEDS ORDERED: IPRATROPIUM/ALBUTEROL 0.5-2.5 MG/3 ML AMPUL NEB ONE (15:10)
--- NOTE | 2017-12-06 15:10 | ER Document Report ---
HPI - HPI Patient complains to provider of: Congested cough, as of breath Onset: Other - 3 days Pain Level: 5 Context: 47-year-old smoker COPD male complaining of congested cough, chest and lung pain with shortness of breath when he coughs and sharp pains in the right hip when he walks and coughs. He has had chills and sweats. He did not get the flu shot. Associated Symptoms: Other - See above Exacerbated by: Other - See above Relieved by: Denies Similar symptoms previously: No Recently seen / treated by doctor: No - ROS ROS below otherwise negative: Yes Systems Reviewed and Negative: Yes All other systems reviewed and negative - REPRODUCTIVE Reproductive: DENIES: : Past Medical History - General Information source: Patient - Social History Smoking Status: Current Every Day Smoker Frequency of alcohol use: None Drug Abuse: None Family History: Arthritis, CAD, COPD, DM, Hyperlipidemia, Hypertension - Past Medical History Cardiac Medical History: Reports: Hx Atrial Fibrillation - Resolved after cardiac ablation, Hx Hypertension Pulmonary Medical History: Reports: Hx Bronchitis, Hx COPD Renal/ Medical History: Denies: Hx Peritoneal Dialysis Musculoskeltal Medical History: Reports Hx Arthritis, Reports Hx Musculoskeletal Deformity, Reports Hx Musculoskeletal Trauma - Herniated disc sciatica chronic pain in his back Psychiatric Medical History: Reports: Hx Anxiety, Hx Attention Deficit Hyperactivity Disorder, Hx Depression Past Surgical History: Reports: Hx Cardiac Catheterization - ablation, Hx Cardiac Surgery - as a child - Immunizations Immunizations up to date: Yes Hx Diphtheria, Pertussis, Tetanus Vaccination: Yes - 2012 Vertical Provider Document - CONSTITUTIONAL Agree With Documented VS: Yes Exam Limitations: No Limitations - INFECTION CONTROL TRAVEL OUTSIDE OF THE [place] IN LAST 30 DAYS: No - HEENT HEENT: Pharyngeal Erythema. negative: Conjuctival Injection, Tympanic Membrane Red - NECK Neck: Supple. negative: Lymphadenopathy-Left, Lymphadenopathy-Right - RESPIRATORY Respiratory: Wheezing - expiratory bilateral O2 Sat by Pulse Oximetry: 94 - CARDIOVASCULAR Cardiovascular: Regular Rate, Regular Rhythm - GI/ABDOMEN Gastrointestinal: Abdomen Soft, Abdomen Non-Tender - MUSCULOSKELETAL/EXTREMETIES Musculoskeletal/Extremeties: MAEW, FROM, Tender - right low back over the lower SI joint and anterior superior iliac spine - NEURO Level of Consciousness: Awake, Alert, Appropriate Motor/Sensory: No Motor Deficit, No Sensory Deficit - DERM Integumentary: Warm, Dry, No Rash Course - Re-evaluation Re-evalutation: 12/06/17 15:29 Pulse ox is 97% while getting the nebulizer treatment. The documentation shows pulse ox 94% twice but the pivot pulse ox papers is 96% so I am not sure about the difference in the pulse ox's. 12/06/17 16:10 We will treat the patient with azithromycin, prednisone, albuterol metered-dose inhaler. I will have him follow-up if his symptoms worsen. no wheeze after the first tx 12/06/17 16:13 - Vital Signs Vital signs: Temp Pulse Resp BP Pulse Ox 99.6 F 89 16 143/70 H 94 12/06/17 14:45 12/06/17 14:45 12/06/17 14:45 12/06/17 14:45 12/06/17 14:45 Discharge - Discharge Clinical Impression: Bronchitis Low back pain Qualifiers: Chronicity: acute Back pain laterality: right Sciatica presence: without sciatica Qualified Code(s): M54.5 - Low back pain Condition: Good Disposition: HOME, SELF-CARE Instructions: Azithromycin ([facility]), Bronchitis With Bronchospasm (Wheezing) ([facility]) , Inhaled Bronchodilators ([facility]), Steroid Medication Additional Instructions: plenty of fluids to er if worse stop smoking use the inhalter take the antibiotics as prescribed take the prednisone as prescribed Prescriptions: Albuterol Sulfate [Proair HFA Inhalation Aerosol 8.5 gm MDI] 2 puff IH Q3HP PRN #1 [id number].[email or web address] PRN Reason: Azithromycin [Zithromax] 250 mg PO DAILY #4 tablet Prednisone [Deltasone 20 mg Tablet] 40 mg PO DAILY #8 tablet Referrals: AUREA CONTRERAS DO [Primary Care Provider] - 12/09/17
--- NOTE | 2017-12-06 15:41 | RADIOLOGY REPORT (SQ) ---
EXAM DESCRIPTION: CHEST PA/LAT COMPLETED DATE/TIME: 12/06/2017 3:20 pm REASON FOR STUDY: cough, wheeze, fever COMPARISON: 10/01/2017, 12/06/2016, 09/25/[address] chest 09/25/2016 EXAM PARAMETERS: NUMBER OF VIEWS: two views TECHNIQUE: Digital Frontal and Lateral radiographic views of the chest acquired. RADIATION DOSE: NA LIMITATIONS: none FINDINGS: LUNGS AND PLEURA: No opacities, masses or pneumothorax. No pleural effusion. MEDIASTINUM AND HILAR STRUCTURES: No masses or contour abnormalities. HEART AND VASCULAR STRUCTURES: Heart normal size. No evidence for failure. BONES: Tiny sternal wires are present from remote prior pediatric cardiac surgery HARDWARE: None in the chest. OTHER: No other significant finding. IMPRESSION: NO SIGNIFICANT RADIOGRAPHIC FINDING IN THE CHEST. TECHNICAL DOCUMENTATION: JOB ID: [id number] [employer]- All Rights Reserved
[2017-12-06] MEDS ORDERED: PREDNISONE 20 MG TABLET PO ONE (15:45)
[2017-12-06] MEDS ORDERED: ALBUTEROL SULFATE 0.083% NEB 2.5 MG/3 ML AMPUL NEB ONE (15:45)
[2017-12-06] MEDS ORDERED: AZITHROMYCIN 250 MG TABLET PO ONE (16:11)
[2017-12-06] MEDS ORDERED: ACETAMINOPHEN 325 MG TABLET PO ONE (16:38)
[2017-12-06] MEDS ORDERED: IBUPROFEN 800 MG TABLET PO ONE (16:38)
[2017-12-06 16:48] VITALS: BP 150/71
== END 2017-12-06 16:48 | disposition home or self-care (01) ==
LOC: ER 14:35
DX: J40 Bronchitis, not specified as acute or chronic (principal); J44.9 Chronic obstructive pulmonary disease, unspecified; M54.5 Low back pain; M25.551 Pain in right hip; R05 Cough; R07.81 Pleurodynia; R06.02 Shortness of breath; R61 Generalized hyperhidrosis; R68.83 Chills (without fever); I10 Essential (primary) hypertension; F17.200 Nicotine dependence, unspecified, uncomplicated
CPT/HCPCS: 94640 ×2; 99283; 71046; J7512; J7620

== ENCOUNTER 2018-01-19 20:01 | Emergency (ER) | payer SELFPAY ==
--- NOTE | 2018-01-19 20:29 | ER Document Report ---
ED Medical Screen (RME) - General Chief Complaint: Suicidal Ideation Stated Complaint: PSYCH EVAL Time Seen by Provider: 01/19/18 20:28 Notes: RME DISCLOSURE I have seen this patient as part of a Rapid Medical Evaluation and, if applicable, placed any initially appropriate orders. The patient will be seen and fully evaluated, including a full history and physical exam, by a provider ( in Main ED or Fast Track) when a room becomes available. 47-year-old male here with complaints of suicidal ideations ongoing for "a long time" but getting worse here lately. He has also been having hallucinations and seeing things over the past few weeks. He has not been on his psychiatric medications for "a long time" since he does not have insurance and is unable to afford them. TRAVEL OUTSIDE OF THE [place] IN LAST 30 DAYS: No - Related Data Allergies/Adverse Reactions: oragel Allergy (Intermediate, Uncoded 10/01/17 18:21) ambesol Allergy (Mild, Uncoded 10/01/17 18:21) Past Medical History - Past Medical History Cardiac Medical History: Reports: Hx Atrial Fibrillation - Resolved after cardiac ablation, Hx Hypertension Pulmonary Medical History: Reports: Hx Bronchitis, Hx COPD Neurological Medical History: Reports: Hx Migraine Renal/ Medical History: Denies: Hx Peritoneal Dialysis Musculoskeltal Medical History: Reports Hx Arthritis, Reports Hx Musculoskeletal Deformity, Reports Hx Musculoskeletal Trauma - Herniated disc sciatica chronic pain in his back Psychiatric Medical History: Reports: Hx Anxiety, Hx Attention Deficit Hyperactivity Disorder, Hx Depression Past Surgical History: Reports: Hx Cardiac Catheterization - ablation, Hx Cardiac Surgery - as a child - Immunizations Immunizations up to date: Yes Hx Diphtheria, Pertussis, Tetanus Vaccination: Yes - 2012 Physical Exam - Vital signs Vitals: Temp Pulse Resp BP Pulse Ox 98.1 F 83 16 141/82 H 98 01/19/18 20:17 01/19/18 20:17 01/19/18 20:17 01/19/18 20:17 01/19/18 20:17 Course - Vital Signs Vital signs: Temp Pulse Resp BP Pulse Ox 98.1 F 83 16 141/82 H 98 01/19/18 20:17 01/19/18 20:17 01/19/18 20:17 01/19/18 20:17 01/19/18 20:17
[2018-01-19 20:48] LABS: APPEARANCE,URINE CLEAR; BILIRUBIN,URINE NEGATIVE (NEGATIVE); COLOR,URINE STRAW; GLUCOSE, URINE NEGATIVE (NEGATIVE); KETONES,URINE NEGATIVE (NEGATIVE); LEUKOCYTE ESTERASE,URINE TRACE (NEGATIVE); NITRITE,URINE NEGATIVE (NEGATIVE); PROTEIN,URINE NEGATIVE (NEGATIVE); URINE SPECIFIC GRAVITY 1.001; UROBILINOGEN,URINE NEGATIVE mg/dL (<2.0)
[2018-01-19 20:56] LABS: ABSOLUTE BASOPHILS # (AUTO) 0.1 10^3/uL (0.0-0.2); ABSOLUTE EOSINOPHILS # (AUTO) 0.1 10^3/uL (0.0-0.6); ABSOLUTE MONOCYTES (AUTO) 0.5 10^3/uL (0.1-1.4); ABSOLUTE NEUT (AUTO) 6.2 10^3/uL (1.7-8.2); BASOPHILS % (AUTO) 0.5 % (0-2); EOSINOPHILS % (AUTO) 0.8 % (0-6); HEMATOCRIT 45.2 % (37.9-51.0); HEMOGLOBIN 15.6 g/dL (13.5-17.0); LYMPHOCYTES % (AUTO) 30.5 % (13-45); MEAN CORPUSCULAR HEMOGLOBIN 32.7 pg (27.0-33.4); MEAN CORPUSCULAR HGB CONC 34.4 g/dL (32.0-36.0); MEAN CORPUSCULAR VOLUME 95 fl (80-97); MONOCYTES % (AUTO) 5.4 % (3-13); PLATELET COUNT 286 10^3/uL (150-450); RED BLOOD COUNT 4.76 10^6/uL (4.35-5.55); RED CELL DISTRIBUTION WIDTH 12.9 % (11.5-14.0); SEGMENTED NEUTROPHILS % (AUTO) 62.8 % (42-78); TOTAL CELLS COUNTED % (AUTO) 100 %; WHITE BLOOD COUNT 9.9 10^3/uL (4.0-10.5)
[2018-01-19 21:03] LABS: URINE AMPHETAMINES SCREEN NEGATIVE; URINE BARBITURATES SCREEN NEGATIVE; URINE BENZODIAZEPINES SCREEN NEGATIVE; URINE COCAINE SCREEN NEGATIVE; URINE MARIJUANA (THC) SCREEN NEGATIVE; URINE METHADONE SCREEN NEGATIVE; URINE PHENCYCLIDINE SCREEN NEGATIVE
[2018-01-19 21:15] LABS: ACETAMINOPHEN < 10 ug/mL (10-30); ALANINE AMINOTRANSFERASE 36 U/L (21-72); ALBUMIN 4.8 g/dL (3.5-5.0); ALCOHOL < 10 mg/dL (NONE DETECTED); ALKALINE PHOSPHATASE 78 U/L (38-126); ANION GAP 12 (5-19); ASPARTATE AMINO TRANSFERASE 22 U/L (17-59); BILIRUBIN,DIRECT 0.2 mg/dL (0.0-0.4); BILIRUBIN,TOTAL 0.4 mg/dL (0.2-1.3); BLOOD UREA NITROGEN 7 mg/dL (7-20); CARBON DIOXIDE 29 mmol/L (22-30); CHLORIDE 101 mmol/L (98-107); GLUCOSE 77 mg/dL (75-110); POTASSIUM 3.9 mmol/L (3.6-5.0); SALICYLATE < 1.0 mg/dL (2.0-20.0); SODIUM 141.8 mmol/L (137-145); TOTAL PROTEIN 7.6 g/dL (6.3-8.2)
[2018-01-19] MEDS ORDERED: IBUPROFEN 600 MG TABLET PO ONE (23:15)
[2018-01-19] MEDS ORDERED: ACETAMINOPHEN 325 MG TABLET PO ONE (23:15)
--- NOTE | 2018-01-20 00:19 | ER Document Report ---
ED General - General TRAVEL OUTSIDE OF THE [place] IN LAST 30 DAYS: No - HPI Patient complains to provider of: Suicidal ideation <DEREK CHUNG - Last Filed: 01/20/18 00:19> <SANDRO CORRALES - Last Filed: 01/20/18 10:40> <BERNY WIN - Last Filed: 01/20/18 10:55> - General Chief Complaint: Suicidal Ideation Stated Complaint: PSYCH EVAL Time Seen by Provider: 01/19/18 20:28 - HPI Notes: Patient coming in for evaluation of suicidal ideation. Patient states he has suicidal thoughts for greater than few weeks however did contact mobile crisis line was recommended to come to the ER for further evaluation. Patient states he does not have a plan however does have increase depression over the last few days. Patient states he was on medication at one time however cannot afford at this time. Patient states he has had a suicide attempt the past however would not elaborate on what the intent entailed. Denies fevers chills nausea vomiting diarrhea. (DEREK CHUNG) - Related Data Allergies/Adverse Reactions: oragel Allergy (Intermediate, Uncoded 10/01/17 18:21) ambesol Allergy (Mild, Uncoded 10/01/17 18:21) Past Medical History - Social History Smoking Status: Unknown if Ever Smoked Family History: Arthritis, CAD, COPD, DM, Hyperlipidemia, Hypertension Patient has suicidal ideation: Yes Patient has homicidal ideation: No - Past Medical History Cardiac Medical History: Reports: Hx Atrial Fibrillation - Resolved after cardiac ablation, Hx Hypertension Pulmonary Medical History: Reports: Hx Bronchitis, Hx COPD Neurological Medical History: Reports: Hx Migraine Renal/ Medical History: Denies: Hx Peritoneal Dialysis Musculoskeltal Medical History: Reports Hx Arthritis, Reports Hx Musculoskeletal Deformity, Reports Hx Musculoskeletal Trauma - Herniated disc sciatica chronic pain in his back Psychiatric Medical History: Reports: Hx Anxiety, Hx Attention Deficit Hyperactivity Disorder, Hx Depression Past Surgical History: Reports: Hx Cardiac Catheterization - ablation, Hx Cardiac Surgery - as a child - Immunizations Immunizations up to date: Yes Hx Diphtheria, Pertussis, Tetanus Vaccination: Yes - 2012 <DEREK CHUNG - Last Filed: 01/20/18 00:19> Review of Systems - Review of Systems Constitutional: No symptoms reported EENT: No symptoms reported Cardiovascular: No symptoms reported Respiratory: No symptoms reported Gastrointestinal: No symptoms reported Genitourinary: No symptoms reported Male Genitourinary: No symptoms reported Musculoskeletal: No symptoms reported Skin: No symptoms reported Hematologic/Lymphatic: No symptoms reported Neurological/Psychological: Suicidal ideation -: Yes All other systems reviewed and negative <DEREK CHUNG - Last Filed: 01/20/18 00:19> Physical Exam - Vital signs Interpretation: Normal - General General appearance: Appears well, Alert - HEENT Head: Normocephalic, Atraumatic Eyes: Normal Pupils: PERRL - Respiratory Respiratory status: No respiratory distress Chest status: Nontender Breath sounds: Normal Chest palpation: Normal - Cardiovascular Rhythm: Regular Heart sounds: Normal auscultation Murmur: No - Abdominal Inspection: Normal Distension: No distension Bowel sounds: Normal Tenderness: Nontender Organomegaly: No organomegaly - Back Back: Normal, Nontender - Extremities General upper extremity: Normal inspection, Nontender, Normal color, Normal ROM , Normal temperature General lower extremity: Normal inspection, Nontender, Normal color, Normal ROM , Normal temperature, Normal weight bearing. No: Gricelda's sign - Neurological Neuro grossly intact: Yes Cognition: Normal Orientation: AAOx4 [place] Coma Scale Eye Opening: Spontaneous [place] Coma Scale Verbal: Oriented [place] Coma Scale Motor: Obeys Commands [place] Coma Scale Total: 15 Speech: Normal Motor strength normal: LUE, RUE, LLE, RLE Sensory: Normal - Psychological Associated symptoms: Depressed - Skin Skin Temperature: Warm Skin Moisture: Dry Skin Color: Normal <DEREK CHUNG - Last Filed: 01/20/18 00:19> - Vital signs Vitals: Temp Pulse Resp BP Pulse Ox 98.1 F 83 16 141/82 H 98 01/19/18 20:17 01/19/18 20:17 01/19/18 20:17 01/19/18 20:17 01/19/18 20:17 Course - Laboratory Result Diagrams: 01/19/18 20:28 01/19/18 20:28 <DEREK CHUNG - Last Filed: 01/20/18 00:19> - Laboratory Result Diagrams: 01/19/18 20:28 01/19/18 20:28 <SANDRO CORRALES - Last Filed: 01/20/18 10:40> - Laboratory Result Diagrams: 01/19/18 20:28 01/19/18 20:28 <BERNY WIN - Last Filed: 01/20/18 10:55> - Re-evaluation Re-evalutation: 01/20/18 00:20 labs normal will hold for mental health eval (DEREK CHUNG) 01/20/18 09:33 As the rounding physician for our psychiatric patients, I have reviewed the chart, vitals, lab work. Patient has been examined and noted to be stable. I am awaiting mental health in put. 01/20/18 10:42 Patient evaluated by psych services see separate psych note. Patient medically cleared and has been provided outpatient follow-up. Patient understands and agrees to plan with return precautions provided. (BERNY WIN) - Vital Signs Vital signs: Temp Pulse Resp BP Pulse Ox 97.9 F 78 18 139/87 H 99 01/20/18 09:23 01/20/18 09:23 01/20/18 09:23 01/20/18 09:23 01/20/18 09:23 - Laboratory Laboratory results interpreted by me: 01/19/18 01/19/18 20:20 20:28 Ur Leukocyte Esterase TRACE H Salicylates < 1.0 L Acetaminophen < 10 L Discharge <DEREK CHUNG - Last Filed: 01/20/18 00:19> <SANDRO CORRALES - Last Filed: 01/20/18 10:40> <BERNY WIN - Last Filed: 01/20/18 10:55> - Discharge Clinical Impression: Unavailability and inaccessibility of health-care facilities Condition: Stable Disposition: HOME, SELF-CARE Additional Instructions: Counseling Services It has been recommended that you seek professional counseling to assist you with the stresses that you are experiencing. Most people at some time in their lives experience personal problems with which they need help. Pride and feeling that one can't be helped keep a lot of people from the benefits of counseling. Follow up care plan: You presented to the Emergency room due to stating suicidal ideation to mobile fruit i farmworker. You received an mental health evaluation and it was determined your chief complaint are due to inaccessibility to of mental health/medication management services. Based on your assessment we recommend following up with [facility] mobile crisis management worker to address barriers to mental health services ( transportation issue). As requested per patient Behavioral health contacted mobile fruit i farmworker Maksim and left voicemail. Additional resources provided. Referrals: [facility] [Outside] - Follow up in 3-5 days
--- NOTE | 2018-01-20 07:09 | EKG REPORT ---
SEVERITY:- ABNORMAL ECG - SINUS RHYTHM VENTRICULAR PREMATURE COMPLEX PROBABLE LEFT ATRIAL ABNORMALITY BORDERLINE IVCD WITH LAD BORDERLINE T WAVE ABNORMALITIES : Confirmed by: Colt Pinedo MD 20-Jan-2018 07:09:28
--- NOTE | 2018-01-20 08:07 | PSYCHOLOGICAL NOTE ---
Psych Note - Psych Note Psych Note: Reason for consult: Suicidal ideation Eval: 7:30 am Final Disposition Contact Permissions: Juan Diego Conley [phone] Patient is a 47 year old male. Patient reports he does not have medical insurance and was not able to see a therapist or a provider to prescribe the medications he needs. Patient reports this visit is due to him not being on his medications. Patient reports that he would like Adderall because he allegedly has ADHD. Patient stated "I need something for my nerves". Patient reports that prior to losing his medical he was seen at [facility] by Lee Ann Warner. Patient reports that he also has history of a learning disability. Patient reports that he applied for disability 3 or 4 times and was denied all times. Patient reports that he knows of [facility], and that they see people who do not have insurance but states they have a bus system which requires you to pay going both ways and he has no means to pay. Patient reports that he wants to find a job something that works with his disability so that he could get his license back. Patient reports that 3 or 4 years ago he had a DWI, had to do classes, and now just owes the fees. Patient reports that once he pays the fees he can start driving and getting to a job, and hopefully a provider. Patient reports that [place]" so does not have friends or family that could drive him into town. Patient reports that he lives with his father Juan Diego Conley and gives consent to behavioral health team to speak with him. Patient reports relationship with his father is good.Patient denies SI/HI , patient stated " If I actually wanted to I would have found a way" referring to suicide[ patient was complaining that he could not hear his TV because the remote was taken away). Patient reports he gets angry while at home and will punch holes in the wall, but his anger and aggression is not directed at people or himself, more toward objects. Patients reports he has dealt with depression over the last year due to losing his niece ( by foster care) , and thinking about the daughter whom is now . Patient reports he has a daughter whom is an adult, but would not share more information regarding family. Patient reports he called [facility] mobile bag shop worker for ride to hospital so he can get meds ( patient lacked transportation). Clinician saw patient before he left, patient stated he forgot to mention that he was seen at [facility] for medication management but the problem he ran into was that he could not afford the medications he was prescribed, so a prescription wouldn't help. Patient reports he was hoping the hospital would give him actual medications to go ( not the prescription but a bottle of pills). Collateral Contact: Maksim from [facility] [employer] Travel Counselor program [phone] maskim reports patient was discharged from the program due to non compliance. Maksim reports they were provided monetary resources, linkage to services, transportation, emergency food services, and assistance with applying for medical and jobs. Maksim reports patient became dependent on services to include calling the [facility] [employer] processing supervisor program for diapers, and food. Maksim reports they assisted him with trying to find a job and patient repeatedly said he could not work because of his "ADHD".Maksim reports patient will often endorse suicidal ideation without intention or plan for secondary gain ( e.g. resources, rides). Maksim reports prior to discharge there were 11 people living in the home of patient, with working vehicle. Maksim reports patient has access and means to obtain goals, but does not possess the drive to follow through with recommendations. Maksim reports patient was also linked to [facility], IFS, and multiple other resources. Medication recommendation made by [facility] contracted psychiatric provider MD Rose Mary includes: None Diagnosis: Per Hx 319 (F79) Unspecified Intellectual Disability Per Hx 311 (F32.9) Unspecified Depressive Disorder V 63.9 (Z 75.3) unavailability or inaccessibility of healthcare facilities Impression/Plan: Patient is psychiatrically cleared for discharge. Recommendation to rescind involuntary commitment due to patient not meeting criteria [place] GS 122C. Patient denies SI/HI. Recommendation to follow up with [facility] mobile crisis management. Clinician observed patient 's mood is depressed, affect constricted, cooperative behavior with assessment, and goal oriented thinking. Clinician observed patient's mental health symptoms are correlated with inaccessibility to of mental health/medication management services. Clinician observed per patient report patient's primary complaint is needing medications. Clinician observed through comprehensive chart review patient has been seen in Emergency Department by behavioral health numerous times and were previously given recommendations/ resources. Clinician coordinated with [facility] [employer] [facility] [facility] for collateral information and continuity of care and observed patient displays behavioral pattern of utilizing emergency services as a primary care source for medical attention. Clinician provided psycho-education with patient and utilized solution focused brief therapy techniques to assist patient in identifying solutions to current problem ( financial instability). Clinician observed patient identified a plan to search for a job. Consulted with Dr. Griffin regarding the management and care of patient.
[2018-01-20 11:03] VITALS: BP 133/79
== END 2018-01-20 11:03 | disposition home or self-care (01) ==
LOC: ER 20:01
DX: F32.9 Major depressive disorder, single episode, unspecified (principal); R45.851 Suicidal ideations; Z75.3 Unavailability and inaccessibility of health-care facilities; Z88.8 Allergy status to other drugs, medicaments and biological substances; I10 Essential (primary) hypertension; J44.9 Chronic obstructive pulmonary disease, unspecified
CPT/HCPCS: 36415; 80053; 80307; 81001; 85025; 93005; 93010; 99285

== ENCOUNTER 2018-04-19 16:47 | Emergency (ER) | payer SELFPAY ==
[2018-04-19 16:53] VITALS: BP 147/90
[2018-04-19] MEDS ORDERED: KETOROLAC TROMETHAMINE 60 MG/2 ML SDV IM ONE (17:11)
--- NOTE | 2018-04-19 17:11 | ER Document Report ---
ED Medical Screen (RME) - General Chief Complaint: Headache Stated Complaint: FALL/BACK PAIN Time Seen by Provider: 04/19/18 17:03 Mode of Arrival: Ambulatory Information source: Patient Notes: 47 yro ld male presents with complaints of back pain twisting motion. pt notes he fell becuase his legs gave out , pt did not hit his head or his back, admits to migraine and low back I have greeted and performed a rapid initial assessment of this patient. A comprehensive ED assessment and evaluation of the patient, analysis of test results and completion of the medical decision making process will be conducted by additional ED providers. PHYSICAL EXAMINATION: GENERAL: Well-appearing, well-nourished and in no acute distress. HEAD: Atraumatic, normocephalic. EYES: Pupils equal round extraocular movements intact, conjunctiva are normal. ENT: Nares patent NECK: Normal range of motion LUNGS: No respiratory distress Musculoskeletal: Normal range of motion NEUROLOGICAL: Normal speech, normal gait. PSYCH: Normal mood, normal affect. SKIN: Warm, Dry, normal turgor, no rashes or lesions noted. TRAVEL OUTSIDE OF THE [place] IN LAST 30 DAYS: No - Related Data Allergies/Adverse Reactions: oragel Allergy (Intermediate, Uncoded 04/19/18 16:48) ambesol Allergy (Mild, Uncoded 04/19/18 16:48) Past Medical History - Social History Chew tobacco use (# tins/day): No Frequency of alcohol use: None Drug Abuse: None - Past Medical History Cardiac Medical History: Reports: Hx Atrial Fibrillation - Resolved after cardiac ablation, Hx Hypertension Pulmonary Medical History: Reports: Hx Bronchitis, Hx COPD Neurological Medical History: Reports: Hx Migraine Renal/ Medical History: Denies: Hx Peritoneal Dialysis Musculoskeltal Medical History: Reports Hx Arthritis, Reports Hx Musculoskeletal Deformity, Reports Hx Musculoskeletal Trauma - Herniated disc sciatica chronic pain in his back Psychiatric Medical History: Reports: Hx Anxiety, Hx Attention Deficit Hyperactivity Disorder, Hx Depression Past Surgical History: Reports: Hx Cardiac Catheterization - ablation, Hx Cardiac Surgery - as a child - Immunizations Immunizations up to date: Yes Hx Diphtheria, Pertussis, Tetanus Vaccination: Yes - 2012 Physical Exam - Vital signs Vitals: Temp Pulse Resp BP Pulse Ox 98.4 F 86 18 147/90 H 98 04/19/18 16:52 04/19/18 16:52 04/19/18 16:52 04/19/18 16:52 04/19/18 16:52 Course - Vital Signs Vital signs: Temp Pulse Resp BP Pulse Ox 98.4 F 86 18 147/90 H 98 04/19/18 16:52 04/19/18 16:52 04/19/18 16:52 04/19/18 16:52 04/19/18 16:52
[2018-04-19] MEDS ORDERED: DEXAMETHASONE SOD PHOS INJ 10 MG/1 ML VIAL IM ONE (17:40)
--- NOTE | 2018-04-19 17:45 | ER Document Report ---
HPI - HPI Pain Level: 5 Notes: Patient is a 47-year-old male with a history of chronic back pain who was previous on chronic narcotics who presents to the ED complaining of acute on chronic low back pain status post twist injury prior to arrival. Patient states that his leg buckled on him and he twisted his back. Patient states he did not hit his head or lose consciousness. Contrary to what previous interviews suggest today, patient declines any headache or migraine. Patient states that he has not had any injections or procedures to his lower back. Patient states that his back pain presents similarly as it always has been otherwise. He is eating and drinking without any difficulties. He is urinating normally and having normal bowel movements. Denies any headache, fever, head injury, neck pain, URI, sore throat, chest pain, palpitations, syncope, cough, shortness of breath, wheeze, dyspnea, abdominal pain, nausea/ vomiting/diarrhea, urinary retention, dysuria, hematuria, loss of control of bowel or bladder, numbness/tingling, saddle anesthesia, muscle paralysis/ weakness, or rash. - ROS Systems Reviewed and Negative: Yes All other systems reviewed and negative - REPRODUCTIVE Reproductive: DENIES: : - DERM Skin Color: Normal Past Medical History - General Information source: Patient - Social History Smoking Status: Current Every Day Smoker Chew tobacco use (# tins/day): No Frequency of alcohol use: None Drug Abuse: None Family History: Arthritis, CAD, COPD, DM, Hyperlipidemia, Hypertension Patient has suicidal ideation: No Patient has homicidal ideation: No - Past Medical History Cardiac Medical History: Reports: Hx Atrial Fibrillation - Resolved after cardiac ablation, Hx Hypertension Pulmonary Medical History: Reports: Hx Bronchitis, Hx COPD Neurological Medical History: Reports: Hx Migraine Renal/ Medical History: Denies: Hx Peritoneal Dialysis Musculoskeltal Medical History: Reports Hx Arthritis, Reports Hx Musculoskeletal Deformity, Reports Hx Musculoskeletal Trauma - Herniated disc sciatica chronic pain in his back Psychiatric Medical History: Reports: Hx Anxiety, Hx Attention Deficit Hyperactivity Disorder, Hx Depression Past Surgical History: Reports: Hx Cardiac Catheterization - ablation, Hx Cardiac Surgery - as a child - Immunizations Immunizations up to date: Yes Hx Diphtheria, Pertussis, Tetanus Vaccination: Yes - 2013 [facility] Provider Document - CONSTITUTIONAL Agree With Documented VS: Yes Notes: PHYSICAL EXAMINATION: GENERAL: Well-appearing, well-nourished and in no acute distress. Eyes: PERRLA, EOMI's intact. LUNGS: Breath sounds clear to auscultation bilaterally and equal. No wheezes rales or rhonchi. HEART: Regular rate and rhythm without murmurs, rubs, gallops. ABDOMEN: Soft, nontender, nondistended abdomen. No guarding, no rebound. No masses appreciated. Normal bowel sounds present. No CVA tenderness bilaterally. No pulsatile mass Musculoskeletal: LE's b/l: FROM to passive/active. Strength 5+/5. No deficits noted. No bony tenderness of extremities. Back: FROM to passive/active. Strength 5+/5. No vertebral point tenderness, stepoffs, or deformities. No other bony tenderness, erythema, swelling, or ecchymosis. SLR negative b/l. + mild tenderness to light palpation to the L- paraspinal mm b/l. Mild spasming. No SI jt tenderness. No foot drop Extremities: No cyanosis, clubbing, or edema b/l. Peripheral pulses 2+. Capillary refill less than 2 seconds. NEUROLOGICAL: Normal speech, normal gait. Normal sensory, motor exams. Reflexes 2+ b/l. Cranial nerves grossly intact. PSYCH: Normal mood, normal affect. SKIN: Warm, Dry, normal turgor, no rashes or lesions noted. - INFECTION CONTROL TRAVEL OUTSIDE OF THE [place] IN LAST 30 DAYS: No Course - Re-evaluation Re-evalutation: 04/19/18 17:43 Patient is an afebrile, well-hydrated, 47-year-old male who presents to the ED with acute on chronic low back pain. Vitals are acceptable. PE is otherwise unremarkable for any focal neurological deficits. Patient was given Decadron, Toradol. He has no significant tachycardia, tachypnea, or hypoxia. He is nontoxic-appearing and is tolerating p.o. without difficulties. There are no signs of infection. No other red flag symptoms noted. No other labs or imaging warranted at this time based on H&P. Low suspicion for any meningitis, fracture, expanding/ruptured AAA, cauda equina syndrome, epidural mass lesion/ abscess, herniated disc causing severe spinal stenosis, or other systemic infection at this time. Patient is aware that his condition can change from initial presentation and that he needs monitor symptoms closely for any acute changes. I will send him home with a prescription for baclofen and naproxen. Conservative measures otherwise for symptoms. Recheck with your PCM in 3-5 days. Consider consult with orthopedic/physical therapy. Return to the ED with any worsening/concerning symptoms otherwise as reviewed discharge. Patient is in agreement. - Vital Signs Vital signs: Temp Pulse Resp BP Pulse Ox 98.4 F 86 18 147/90 H 98 04/19/18 16:52 04/19/18 16:52 04/19/18 16:52 04/19/18 16:52 04/19/18 16:52 Discharge - Discharge Clinical Impression: Low back pain Qualifiers: Chronicity: acute Back pain laterality: bilateral Sciatica presence: without sciatica Qualified Code(s): M54.5 - Low back pain Condition: Stable Disposition: HOME, SELF-CARE Instructions: Low Back Pain ([facility]), Stretching Exercises for the Back ([facility]), Muscle Relaxers ([facility]) Additional Instructions: Rest, Ice, Compression, Elevation Tylenol/ibuprofen as needed Light stretches daily Strength exercises as able Moist heat and massage may help F/u with your PCP in 3-5 days for a recheck Consider consult(s) with Orthopedics/physical therapy for ongoing/worsening symptoms Return to the ED with any worsening symptoms and/or development of fever, headache, chest pain, palpitations, syncope, shortness of breath, trouble breathing, abdominal pain, n/v/d, blood in stool/urine, loss of control of bowel /bladder, urinary retention, muscle weakness/paralysis, saddle anesthesia, numbness/tingling, or other worsening symptoms that are concerning to you. Prescriptions: Baclofen [Baclofen 10 mg Tablet] 5 - 10 mg PO BID PRN #10 tablet PRN Reason: Naproxen 500 mg PO BID PRN #30 tablet PRN Reason: Forms: Elevated Blood Pressure, Smoking Cessation Education Referrals: AUREA CONTRERAS DO [Primary Care Provider] - Follow up in 3-5 days [facility] [Provider Group] - Follow up as needed
== END 2018-04-19 18:03 | disposition home or self-care (01) ==
LOC: ER 16:47
DX: M54.5 Low back pain (principal); F17.200 Nicotine dependence, unspecified, uncomplicated; I10 Essential (primary) hypertension
CPT/HCPCS: 99283; 96372; J1885; J1100

== ENCOUNTER 2018-05-02 18:16 | Emergency (ER) | payer SELFPAY ==
[2018-05-02 18:23] VITALS: BP 147/83
[2018-05-02] MEDS ORDERED: LIDOCAINE 5% (700 MG) TRANSDERMAL ADH..PATCH TP ONE (18:37)
[2018-05-02] MEDS ORDERED: HYDROCODONE/ACETAMINOPHEN 5-325 MG TABLET PO ONE (18:37)
--- NOTE | 2018-05-02 18:41 | ER Document Report ---
HPI - HPI Patient complains to provider of: Right upper back pain Onset: Just prior to arrival Onset/Duration: Sudden Quality of pain: Achy Pain Level: 5 Context: Patient presents complaining of right upper back pain after lifting a couch. Patient is left-hand dominant. Patient denies any cough or cold symptoms. Patient denies any difficulty breathing Associated Symptoms: Other - Right upper back pain Exacerbated by: Movement Relieved by: Denies Similar symptoms previously: No Recently seen / treated by doctor: No - ROS ROS below otherwise negative: Yes Systems Reviewed and Negative: Yes All other systems reviewed and negative - NEURO Neurology: DENIES: Headache, Weakness - CARDIOVASCULAR Cardiovascular: DENIES: Chest pain - RESPIRATORY Respiratory: DENIES: Trouble Breathing, Coughing - REPRODUCTIVE Reproductive: DENIES: : - MUSCULOSKELETAL Musculoskeletal: REPORTS: Back Pain - DERM Skin Color: Normal Skin Problems: None Past Medical History - General Information source: Patient - Social History Smoking Status: Current Every Day Smoker Smoking Education Provided: Yes Frequency of alcohol use: Occasional Drug Abuse: None Occupation: None Family History: Arthritis, CAD, COPD, DM, Hyperlipidemia, Hypertension - Past Medical History Cardiac Medical History: Reports: Hx Atrial Fibrillation - Resolved after cardiac ablation, Hx Hypertension Pulmonary Medical History: Reports: Hx Bronchitis, Hx COPD Neurological Medical History: Reports: Hx Migraine Renal/ Medical History: Denies: Hx Peritoneal Dialysis Musculoskeltal Medical History: Reports Hx Arthritis, Reports Hx Musculoskeletal Deformity, Reports Hx Musculoskeletal Trauma - Herniated disc sciatica chronic pain in his back Psychiatric Medical History: Reports: Hx Anxiety, Hx Attention Deficit Hyperactivity Disorder, Hx Depression Past Surgical History: Reports: Hx Cardiac Catheterization - ablation, Hx Cardiac Surgery - as a child - Immunizations Immunizations up to date: Yes Hx Diphtheria, Pertussis, Tetanus Vaccination: Yes - 2012 [employer] Provider Document - CONSTITUTIONAL Agree With Documented VS: Yes Exam Limitations: No Limitations General Appearance: WD/WN, No Apparent Distress - INFECTION CONTROL TRAVEL OUTSIDE OF THE [place] IN LAST 30 DAYS: No - HEENT HEENT: Atraumatic, Normocephalic - NECK Neck: Normal Inspection, Supple - RESPIRATORY Respiratory: Breath Sounds Normal, No Respiratory Distress - CARDIOVASCULAR Cardiovascular: Regular Rate, Regular Rhythm Pulses: Normal: Radial - BACK Back: Abnormal Inspection - Right trapezius muscle tenderness with movement of right upper extremity, no midline spinal tenderness. negative: CVA Tenderness- Right, CVA Tenderness-Left - MUSCULOSKELETAL/EXTREMETIES Musculoskeletal/Extremeties: JOVAN LEVINE - NEURO Level of Consciousness: Awake, Alert, Appropriate Motor/Sensory: No Motor Deficit - DERM Integumentary: Warm, Dry, No Rash Course - Re-evaluation Re-evalutation: 05/02/18 The patient presents with low back pain without signs of spinal cord compression , cauda equina syndrome, infection, aneurysm, or other serious etiology. The patient is neurologically intact. Given the extremely risk of these diagnoses further testing and evaluation for these possibilities does not appear to be indicated at this time. Patient has been instructed to return if the symptoms worsen or change in any way. - Vital Signs Vital signs: Temp Pulse Resp BP Pulse Ox 98.8 F 80 14 147/83 H 98 05/02/18 18:22 05/02/18 18:22 05/02/18 18:22 05/02/18 18:22 05/02/18 18:22 Discharge - Discharge Clinical Impression: Trapezius muscle strain Qualifiers: Encounter type: initial encounter Laterality: right Qualified Code(s): S46.811A - Strain of other muscles, fascia and tendons at shoulder and upper arm level, right arm, initial encounter Condition: Stable Disposition: HOME, SELF-CARE Instructions: Muscle Relaxers ([facility]), Muscle Strain ([facility]) Additional Instructions: Return immediately for any new or worsening symptoms Followup with your primary care provider, call tomorrow to make a followup appointment Prescriptions: Cyclobenzaprine HCl [Flexeril 10 Mg Tablet] 10 mg PO TID #15 tablet Naproxen [Naprosyn 250 Nmg Tablet] 1 tab PO BID #14 tablet Forms: Smoking Cessation Education Referrals: [facility] [Provider Group] - Follow up as needed [facility] [Provider Group] - Follow up as needed
== END 2018-05-02 19:13 | disposition home or self-care (01) ==
LOC: ER 18:16
DX: S29.012A Strain of muscle and tendon of back wall of thorax, initial encounter (principal); M54.5 Low back pain; X50.0XXA Overexertion from strenuous movement or load, initial encounter; Y93.89 Activity, other specified; F17.200 Nicotine dependence, unspecified, uncomplicated; I10 Essential (primary) hypertension; J44.9 Chronic obstructive pulmonary disease, unspecified
CPT/HCPCS: 99283

== ENCOUNTER 2018-05-11 20:11 | Inpatient (IN) | payer SELFPAY ==
--- NOTE | 2018-05-11 21:00 | ER Document Report ---
Addendum entered and electronically signed by SHAMIR BLACK PA-C 05/12/18 09:54 : Discharge - Discharge Clinical Impression: Overdose Qualifiers: Encounter type: initial encounter Injury intent: intentional self-harm Qualified Code(s): T50.902A - Poisoning by unspecified drugs, medicaments and biological substances, intentional self-harm, initial encounter Condition: Stable Disposition: ADMITTED INPATIENT Admitting Provider: Hospitalist - Dr. Francois Unit Admitted: IMCU Referrals: AUREA CONTRERAS DO [Primary Care Provider] - Follow up as needed Original Note: ED Psych Disorder / Suicide - General Mode of Arrival: Medic Information source: Patient TRAVEL OUTSIDE OF THE [place] IN LAST 30 DAYS: No <DAVE BOYCE - Last Filed: 05/12/18 06:11> <SHAMIR BLACK - Last Filed: 05/12/18 08:42> - General Chief Complaint: Overdose Stated Complaint: POSSIBLE OVERDOSE Time Seen by Provider: 05/11/18 20:24 Notes: Patient is a 47-year-old male who presents after overdosing on Lexapro and Tegretol. Patient reports he took "a few" of each. Patient reports increasing depression lately due to multiple life stressors to include being unemployed, having no transportation and not seeing his daughter in several months. Patient reports that he was intending to harm himself. (DAVE BOYCE) - Related Data Allergies/Adverse Reactions: oragel Allergy (Intermediate, Uncoded 04/19/18 16:48) ambesol Allergy (Mild, Uncoded 04/19/18 16:48) Past Medical History - General Information source: Patient - Social History Smoking Status: Current Every Day Smoker Frequency of alcohol use: None Drug Abuse: None Family History: Arthritis, CAD, COPD, DM, Hyperlipidemia, Hypertension - Past Medical History Cardiac Medical History: Reports: Hx Atrial Fibrillation - Resolved after cardiac ablation, Hx Hypertension Pulmonary Medical History: Reports: Hx Bronchitis, Hx COPD Neurological Medical History: Reports: Hx Migraine Renal/ Medical History: Denies: Hx Peritoneal Dialysis Musculoskeletal Medical History: Reports Hx Arthritis, Reports Hx Musculoskeletal Deformity, Reports Hx Musculoskeletal Trauma - Herniated disc sciatica chronic pain in his back Psychiatric Medical History: Reports: Hx Anxiety, Hx Attention Deficit Hyperactivity Disorder, Hx Depression Past Surgical History: Reports: Hx Cardiac Catheterization - ablation, Hx Cardiac Surgery - as a child - Immunizations Immunizations up to date: Yes Hx Diphtheria, Pertussis, Tetanus Vaccination: Yes - 2012 <DAVE BOYCE - Last Filed: 05/12/18 06:11> Review of Systems - Review of Systems Constitutional: No symptoms reported EENT: No symptoms reported Cardiovascular: No symptoms reported Respiratory: No symptoms reported Gastrointestinal: No symptoms reported Genitourinary: No symptoms reported Male Genitourinary: No symptoms reported Musculoskeletal: No symptoms reported Skin: No symptoms reported Hematologic/Lymphatic: No symptoms reported Neurological/Psychological: Depression <DAVE BOYCE - Last Filed: 05/12/18 06:11> - Vital signs Vitals: Pulse Ox 95 05/11/18 20:41 Course - Laboratory Result Diagrams: 05/11/18 20:50 05/11/18 20:50 <DAVE BOYCE - Last Filed: 05/12/18 06:11> - Laboratory Result Diagrams: 05/11/18 20:50 05/11/18 20:50 <SHAMIR BLACK - Last Filed: 05/12/18 08:42> - Re-evaluation Re-evalutation: Patient is a 47-year-old male who presents via EMS for overdose. Patient reports that he took a few pills of his Lexapro and a few pills of his Tegretol. Patient is unsure the exact number of pills but said it is less than 10. Patient does not know what the dosages are of either medication. Patient reports that he was trying to kill himself. Patient reports that he does not have a job, has been denied for disability and has no transportation. Patient reports that he has been feeling increasingly depressed lately due to his life situation and reports that he wanted to end it all. It is alert, oriented, and cooperative. Patient's vital signs are normal. Patient has no physical complaints. Patient does have a history of depression, ADHD and hypertension. Will consult poison control. 05/11/18 20:48 Called and spoke with Debbie from [place] poison control. Recommendation is cardiac monitoring as well as a initial Tegretol level now and a repeat in 6 hours. Tegretol 8.6. EKG normal sinus rhythm with QTc 483. 05/11/18 23:00 Patient resting with eyes closed. Respirations equal and unlabored. All labs unremarkable. Patient has a normal sinus rhythm on the monitor, normotensive. Will redraw a Tegretol level at the 6 hour kamran. Repeat Tegretol is 14.1. Normal range is 4-12. Repeat EKG normal sinus rhythm with QTc 494. Patient remains asymptomatic and easily arousable. Will continue to monitor. Spoke with poison control again and they recommend to repeat Tegretol level in 2 -4 hours. Continue to monitor patient. (DAVE BOYCE) 05/12/18 07:46 Patient's Tegretol level increased to 17.1. QTc 499 with QRS 110. I did review these results with poison control who recommends 24-hour observation with serial level monitoring every 4-6 hours. Vitals are currently acceptable. Patient is arousable and responds to questions appropriately. I did review with Dr. Raymundo. We will place him on an IVC 24hr hold until eval with Psych and admit. 05/12/18 08:[address] Francois accepted patient for admission. (SHAMIR BLACK) - Vital Signs Vital signs: Temp Pulse Resp BP Pulse Ox 12 131/75 H 97 05/12/18 07:01 05/12/18 07:01 05/12/18 07:01 - Laboratory Laboratory results interpreted by me: 05/11/18 05/12/18 05/12/18 20:50 03:22 05:59 Sodium 147.0 H Potassium 3.5 L Chloride 108 H BUN 6 L Salicylates < 1.0 L Acetaminophen < 10 L Carbamazepine 14.1 H 17.1 H* Discharge <DAVE BOYCE - Last Filed: 05/12/18 06:11> - Discharge Admitting Provider: Hospitalist - Dr. Francois Unit Admitted: IMCU <SHAMIR BLACK - Last Filed: 05/12/18 08:42> - Discharge Clinical Impression: Overdose Qualifiers: Encounter type: initial encounter Injury intent: intentional self-harm Qualified Code(s): T50.902A - Poisoning by unspecified drugs, medicaments and biological substances, intentional self-harm, initial encounter Condition: Stable Disposition: ADMITTED INPATIENT Referrals: AUREA CONTRERAS DO [Primary Care Provider] - Follow up as needed
[2018-05-11 21:17] LABS: ABSOLUTE BASOPHILS # (AUTO) 0.1 10^3/uL (0.0-0.2); ABSOLUTE EOSINOPHILS # (AUTO) 0.1 10^3/uL (0.0-0.6); ABSOLUTE LYMPHOCYTES (AUTO) 1.9 10^3/uL (0.5-4.7); ABSOLUTE MONOCYTES (AUTO) 0.6 10^3/uL (0.1-1.4); ABSOLUTE NEUT (AUTO) 6.3 10^3/uL (1.7-8.2); BASOPHILS % (AUTO) 0.8 % (0-2); EOSINOPHILS % (AUTO) 0.7 % (0-6); HEMATOCRIT 43.1 % (37.9-51.0); LYMPHOCYTES % (AUTO) 21.4 % (13-45); MEAN CORPUSCULAR HGB CONC 34.9 g/dL (32.0-36.0); MEAN CORPUSCULAR VOLUME 95 fl (80-97); MONOCYTES % (AUTO) 7.1 % (3-13); PLATELET COUNT 225 10^3/uL (150-450); RED BLOOD COUNT 4.56 10^6/uL (4.35-5.55); RED CELL DISTRIBUTION WIDTH 13.1 % (11.5-14.0); TOTAL CELLS COUNTED % (AUTO) 100 %
[2018-05-11 21:24] LABS: ALANINE AMINOTRANSFERASE 39 U/L (21-72); ALBUMIN 4.5 g/dL (3.5-5.0); ALCOHOL 50 mg/dL (NONE DETECTED); ALKALINE PHOSPHATASE 60 U/L (38-126); ANION GAP 16 (5-19); ASPARTATE AMINO TRANSFERASE 33 U/L (17-59); BILIRUBIN,DIRECT 0.4 mg/dL (0.0-0.4); BILIRUBIN,TOTAL 0.6 mg/dL (0.2-1.3); BLOOD UREA NITROGEN 6 mg/dL (7-20); CALCIUM 9.6 mg/dL (8.4-10.2); CARBON DIOXIDE 23 mmol/L (22-30); CHLORIDE 108 mmol/L (98-107); GLUCOSE 108 mg/dL (75-110); POTASSIUM 3.5 mmol/L (3.6-5.0); TOTAL PROTEIN 7.4 g/dL (6.3-8.2)
[2018-05-11 21:27] LABS: ACETAMINOPHEN < 10 ug/mL (10-30); SALICYLATE < 1.0 mg/dL (2.0-20.0)
[2018-05-11 22:44] LABS: APPEARANCE,URINE CLEAR; BILIRUBIN,URINE NEGATIVE (NEGATIVE); COLOR,URINE YELLOW; GLUCOSE, URINE NEGATIVE (NEGATIVE); KETONES,URINE NEGATIVE (NEGATIVE); LEUKOCYTE ESTERASE,URINE NEGATIVE (NEGATIVE); NITRITE,URINE NEGATIVE (NEGATIVE); PROTEIN,URINE NEGATIVE (NEGATIVE); URINE SPECIFIC GRAVITY 1.011; UROBILINOGEN,URINE NEGATIVE mg/dL (<2.0)
[2018-05-11 22:56] LABS: URINE AMPHETAMINES SCREEN NEGATIVE; URINE BARBITURATES SCREEN NEGATIVE; URINE BENZODIAZEPINES SCREEN NEGATIVE; URINE COCAINE SCREEN NEGATIVE; URINE MARIJUANA (THC) SCREEN NEGATIVE; URINE METHADONE SCREEN NEGATIVE; URINE PHENCYCLIDINE SCREEN NEGATIVE
--- NOTE | 2018-05-12 00:48 | EKG REPORT ---
SEVERITY:- ABNORMAL ECG - SINUS RHYTHM PROBABLE LEFT ATRIAL ABNORMALITY NONSPECIFIC INTRAVENTRICULAR CONDUCTION DELAY : Confirmed by: Kennedi Reynolds MD 12-May-2018 00:47:56
--- NOTE | 2018-05-12 06:40 | EKG REPORT ---
SEVERITY:- ABNORMAL ECG - SINUS RHYTHM LEFT ATRIAL ABNORMALITY NONSPECIFIC INTRAVENTRICULAR CONDUCTION DELAY : Confirmed by: Kennedi Reynolds MD 12-May-2018 06:39:50
--- NOTE | 2018-05-12 09:52 | EKG REPORT ---
SEVERITY:- ABNORMAL ECG - SINUS RHYTHM PROBABLE LEFT ATRIAL ABNORMALITY NONSPECIFIC INTRAVENTRICULAR CONDUCTION DELAY : Confirmed by: Meri Hamm 12-May-2018 09:51:51
[2018-05-12] MEDS: ENOXAPARIN SODIUM INJ 40 MG/0.4 ML DISP.SYRIN SUBCUT SCH (12:13)
--- NOTE | 2018-05-12 13:25 | PDOC H&P ---
History of Present Illness Admission Date/PCP: 05/12/18 09:57 AUREA CONTRERAS DO Patient complains of: Having intentionally overdosed on Tegretol and Lexapro in an attempt to commit suicide. History of Present Illness: DEWAYNE SYLVESTER is a 47 year old male who carries a past medical history of severe depression, anxiety, ADD, CHF, COPD, and tobacco abuse. The patient states that he has been having difficulty getting his psychiatric medications lately due to his losing his insurance. He states that previously his depression was well controlled. He also states that he has had siginificant economic and social stressors lately including separation from his daughter and not having seen her for months. He states that he took a "handful" of each. Past Medical History Cardiac Medical History: Reports: Atrial Fibrillation - Resolved after cardiac ablation, Hypertension Pulmonary Medical History: Reports: Bronchitis, Chronic Obstructive Pulmonary Disease (COPD) Neurological Medical History: Reports: Migraine Musculoskeltal Medical History: Reports: Arthritis Psychiatric Medical History: Reports: Attention Deficit Hyperactivity Disorder, Depression, General Anxiety Disorder Past Surgical History Past Surgical History: Reports: Cardiac Catheterization - ablation, Other - Open heart surgery at age [age] to correct a septal defect. Social History Smoking Status: Current Every Day Smoker Cigarettes Packs Per Day: 1 Number of Years Smokin Frequency of Alcohol Use: Occasional - Advance Directive Resuscitation Status: Full Code Family History Family History: Arthritis, CAD, COPD, DM, Hyperlipidemia, Hypertension Parental Family History Reviewed: Yes Children Family History Reviewed: Yes Sibling(s) Family History Reviewed.: Yes Medication/Allergy Home Medications: No Home Medications 05/12/18 Allergies/Adverse Reactions: oragel Allergy (Intermediate, Uncoded 04/19/18 16:48) ambesol Allergy (Mild, Uncoded 04/19/18 16:48) Review of Systems Constitutional: ABSENT: anorexia, chills, fever(s), headache(s), weight gain, weight loss Eyes: ABSENT: visual disturbances Ears: ABSENT: hearing changes Nose, Mouth, and Throat: ABSENT: headache(s), sore throat, vertigo Cardiovascular: ABSENT: chest pain, dyspnea on exertion, edema, orthropnea, palpitations Respiratory: ABSENT: cough, dyspnea, hemoptysis, sputum Gastrointestinal: ABSENT: abdominal pain, coffee ground emesis, constipation, diarrhea, dysphagia, heartburn, hematemesis, nausea, vomiting Genitourinary: ABSENT: difficulty urinating, dysuria, hematuria Musculoskeletal: PRESENT: other - Chronic joint pain due to arthritis. Integumentary: ABSENT: diaphoresis, erythema, lesions, pruritus, wounds Neurological: ABSENT: abnormal gait, abnormal speech, confusion, dizziness, focal weakness, lack of coordination, paresthesias, syncope, tremor(s) Psychiatric: PRESENT: anxiety, depression, suicidal ideation, other - Suicide attempt Endocrine: ABSENT: cold intolerance, heat intolerance Physical Exam Vital Signs: Temp Pulse Resp BP Pulse Ox 98 F 77 13 140/87 H 97 05/12/18 11:10 05/12/18 11:10 05/12/18 11:10 05/12/18 11:10 05/12/18 11:10 General appearance: PRESENT: no acute distress, cooperative, obese Head exam: PRESENT: atraumatic, normocephalic Eye exam: PRESENT: EOMI, PERRLA, other - No scleral injection. ABSENT: scleral icterus Ear exam: PRESENT: other - Pinna normal. No hearing loss.. ABSENT: drainage Mouth exam: PRESENT: dry mucosa, neck supple, tongue midline. ABSENT: laceration Throat exam: ABSENT: post pharyngeal erythema, tonsillar erythema, tonsillar exudate, tonsillogmegaly Neck exam: PRESENT: full ROM. ABSENT: carotid bruit, JVD, lymphadenopathy, thyromegaly, tracheal deviation Respiratory exam: PRESENT: other - No increased work of breathing.. ABSENT: rales, rhonchi, wheezes Cardiovascular exam: PRESENT: RRR, other - No lateral PMI. No thrills.. ABSENT : gallop, rubs, systolic murmur Pulses: PRESENT: normal carotid pulses, normal femoral pulses, normal dorsalis pedis pul GI/Abdominal exam: PRESENT: normal bowel sounds, soft. ABSENT: hernia, mass, organolmegaly, tenderness Extremities exam: PRESENT: full ROM. ABSENT: calf tenderness, joint swelling, tenderness, +1 edema Neurological exam: PRESENT: alert, altered, awake, oriented to person, oriented to place, oriented to time, oriented to situation, CN II-XII grossly intact. ABSENT: motor sensory deficit Psychiatric exam: PRESENT: anxious, depressed, flat affect, suicidal ideation Skin exam: PRESENT: dry, intact, warm Results EKG Comments: Prolonged QT Assessment & Plan - Diagnosis (1) Suicide attempt by drug ingestion Qualifiers: Encounter type: initial encounter Qualified Code(s): T50.902A - Poisoning by unspecified drugs, medicaments and biological substances, intentional self- harm, initial encounter Is this a current diagnosis for this admission?: Yes Plan: The patient will be admitted to a telemetry bed on suicide precautions. Psychiatry consult has been called on the patient, and IVC paperwork has been initiated. Will also recheck acetaminophen levels. (2) Tegretol toxicity Qualifiers: Encounter type: initial encounter Injury intent: intentional self-harm Qualified Code(s): T42.1X2A - Poisoning by iminostilbenes, intentional self-harm , initial encounter Is this a current diagnosis for this admission?: Yes Plan: IV fluids. Monitor liver function tests. (3) Overdose of antidepressant Qualifiers: Encounter type: initial encounter Injury intent: intentional self-harm Qualified Code(s): T43.202A - Poisoning by unspecified antidepressants, intentional self-harm, initial encounter Is this a current diagnosis for this admission?: Yes Plan: The patient will be admitted to a telemetry bed. His EKG will be monitored closely for increase in his QT prolongation. Monitor for serotonin syndrome. As the ingestion occured last night, I see no role for activated charcoal at this point. (4) Prolonged Q-T interval on ECG Is this a current diagnosis for this admission?: Yes Plan: Monitor on telemetry. Monitor for anticholinergic effects and altered mental status. Will place on seizure precautions. Follow tegretol levels. (5) COPD (chronic obstructive pulmonary disease) Qualifiers: COPD type: unspecified COPD Qualified Code(s): J44.9 - Chronic obstructive pulmonary disease, unspecified Is this a current diagnosis for this admission?: Yes Plan: As needed bronchodilators. (6) CHF (congestive heart failure) Qualifiers: Heart failure type: unspecified Heart failure chronicity: chronic Qualified Code(s): I50.9 - Heart failure, unspecified Is this a current diagnosis for this admission?: Yes Plan: Appears stable. Will monitor volume status carefully. - Time Time Spent: 50 to 70 Minutes Medications reviewed and adjusted accordingly: Yes Anticipated discharge: Other - as per psychiatric evaluation. - Inpatient Certification Based on my medical assessment, after consideration of the patient's comorbidities, presenting symptoms, or acuity I expect that the services needed warrant INPATIENT care.: Yes I certify that my determination is in accordance with my understanding of Medicare's requirements for reasonable and necessary INPATIENT services [42 CFR 412.3e].: Yes Medical Necessity: Need Close Monitoring Due to Risk of Patient Decompensation, Need For IV Fluids, Need For Continuous Telemetry Monitoring, Risk of Diagnosis Which Will Require Inpatient Eval/Care/Monitoring
--- NOTE | 2018-05-12 15:41 | PSYCHOLOGICAL NOTE ---
Psych Note - Psych Note Psych Note: Reason for Consult: Suicidal ideation; intentional overdose Consent Permissions: none given Collateral: Maksim from [facility] program [phone] EMS reports pt. was faking being unresponsive on arrival, was flinching when eye lids were touch, pt. told to get up and he did, Father stated that he didn' t believe the pt. really took anything, the bottles were 10 yrs old and unknown if anything was still in them, pt. stated he took a handful. Patient disclosed that he arrived to [facility] via EMS because his father called. He states "I guess I tried to kill myself again." When asked when his triggers and stressors are he stated "missing people and things going on." He reports chronic passive suicidal ideation that "comes and goes" however that he is normally unable to "fight it." When asked if the patient is glad he was able to be saved he stated "somewhat I guess." He discloses that his current meds are not working and feel they have increased his suicidal ideation stating " meds I was on before I never had this problem." He reports difficulty because he has no money to fill any medications even when they are prescribed. He reports he knows he has diagnoses of ADD, severe depression and "I do not know all of it." Patient is alert and orientated to person, place, time and circumstance. Mood is dysphoric with flat affect. Patient endorses suicidal ideation with intentional overdose. Patient denies homicidal ideation. Delusions are absent behaviors congruent with intact reality based presentation i.e. organized and linear thought process. Eye contact is poor. Conversational speech is within normal rate, tone and prosody. Intellectual abilities appear to be low average range. Attention and concentration are fair. Insight, judgment, impulse control are poor. Collateral Contact obtained 01/17/2018: Maksim from [facility] program ( [phone] Maksim reports patient was discharged from the program due to non compliance. Maksim reports they were provided monetary resources, linkage to services, transportation, emergency food services, and assistance with applying for medical and jobs. 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 Maksim reports they assisted him with trying to find a job and patient repeatedly said he could not work because of his "ADHD".Maksim reports patient will often endorse suicidal ideation without intention or plan for secondary gain ( e.g. resources, rides). Maksim reports prior to discharge there were 11 people living in the home of patient, with working vehicle. Maksim reports patient has access and means to obtain goals, but does not possess the drive to follow through with recommendations. Maksim reports patient was also linked to [facility], S, and multiple other resources. Diagnosis: 319 (F79) Unspecified Intellectual Disability per history 311 (F32.9) Unspecified Depressive Disorder per history Noncompliance Impression\\plan: Patient is recommended to continue under IVC. Patient reports intentional overdose. Patient was admitted to the floor because of his intentional overdose resulting in Tegretol toxicity (in addition to other medication complications). Patient will be reevaluated. Dr. Griffin was consulted and the care management this patient; attending physician is agreement with recommendations and disposition.
[2018-05-12] MEDS: TRAMADOL HCL 50 MG TABLET PO PRN (15:54)
--- NOTE | 2018-05-12 19:18 | EKG REPORT ---
SEVERITY:- ABNORMAL ECG - SINUS RHYTHM PROBABLE LEFT ATRIAL ABNORMALITY NONSPECIFIC INTRAVENTRICULAR CONDUCTION DELAY : Confirmed by: Meri Hamm 12-May-2018 19:18:03
--- NOTE | 2018-05-12 19:19 | EKG REPORT ---
SEVERITY:- ABNORMAL ECG - SINUS RHYTHM SINUS PAUSE/ARREST WITH ATRIAL ESCAPE Versus blocked APC LEFT ATRIAL ABNORMALITY NONSPECIFIC INTRAVENTRICULAR CONDUCTION DELAY : Confirmed by: Meri Hamm 12-May-2018 19:19:02
[2018-05-12] MEDS ORDERED: NICOTINE 14 MG/24 HR PATCH.TD24 TD ONE (20:00)
[2018-05-13] MEDS: TRAMADOL HCL 50 MG TABLET PO PRN ×4 (00:17→18:14)
[2018-05-13 06:23] LABS: ABSOLUTE BASOPHILS # (AUTO) 0.1 10^3/uL (0.0-0.2); ABSOLUTE EOSINOPHILS # (AUTO) 0.1 10^3/uL (0.0-0.6); ABSOLUTE LYMPHOCYTES (AUTO) 3.1 10^3/uL (0.5-4.7); ABSOLUTE MONOCYTES (AUTO) 0.6 10^3/uL (0.1-1.4); ABSOLUTE NEUT (AUTO) 4.1 10^3/uL (1.7-8.2); BASOPHILS % (AUTO) 0.7 % (0-2); EOSINOPHILS % (AUTO) 1.4 % (0-6); HEMATOCRIT 40.2 % (37.9-51.0); HEMOGLOBIN 14.2 g/dL (13.5-17.0); LYMPHOCYTES % (AUTO) 38.6 % (13-45); MEAN CORPUSCULAR HGB CONC 35.2 g/dL (32.0-36.0); MEAN CORPUSCULAR VOLUME 94 fl (80-97); MONOCYTES % (AUTO) 7.4 % (3-13); PLATELET COUNT 205 10^3/uL (150-450); RED BLOOD COUNT 4.29 10^6/uL (4.35-5.55); RED CELL DISTRIBUTION WIDTH 12.9 % (11.5-14.0); SEGMENTED NEUTROPHILS % (AUTO) 51.9 % (42-78); TOTAL CELLS COUNTED % (AUTO) 100 %
[2018-05-13 06:46] LABS: ALANINE AMINOTRANSFERASE 38 U/L (21-72); ALBUMIN 3.8 g/dL (3.5-5.0); ALKALINE PHOSPHATASE 68 U/L (38-126); ANION GAP 11 (5-19); ASPARTATE AMINO TRANSFERASE 25 U/L (17-59); BILIRUBIN,DIRECT 0.2 mg/dL (0.0-0.4); BILIRUBIN,TOTAL 0.5 mg/dL (0.2-1.3); BLOOD UREA NITROGEN 14 mg/dL (7-20); CALCIUM 8.8 mg/dL (8.4-10.2); CARBON DIOXIDE 27 mmol/L (22-30); CHLORIDE 104 mmol/L (98-107); GLUCOSE 99 mg/dL (75-110); POTASSIUM 3.7 mmol/L (3.6-5.0); TOTAL PROTEIN 6.3 g/dL (6.3-8.2)
[2018-05-13] MEDS: ENOXAPARIN SODIUM INJ 40 MG/0.4 ML DISP.SYRIN SUBCUT SCH (09:24)
[2018-05-13] MEDS ORDERED: NICOTINE 14 MG/24 HR PATCH.TD24 TD SCH (10:00)
--- NOTE | 2018-05-13 10:01 | EKG REPORT ---
SEVERITY:- ABNORMAL ECG - SINUS RHYTHM PROBABLE LEFT ATRIAL ABNORMALITY NONSPECIFIC INTRAVENTRICULAR CONDUCTION DELAY BORDERLINE T WAVE ABNORMALITIES : Confirmed by: Meri Hamm 13-May-2018 10:00:15
--- NOTE | 2018-05-13 10:24 | PDOC PROGRESS REPORT ---
Subjective Progress Note for:: 05/13/18 Subjective:: The patient has no new complaints. Reason For Visit: INTENTIONAL DRUG OVERDOSE,SUICIDE ATTEMPT, Physical Exam Vital Signs: Temp Pulse Resp BP Pulse Ox 97.8 F 64 16 150/85 H 99 05/13/18 03:06 05/13/18 06:58 05/13/18 03:06 05/13/18 03:06 05/13/18 03:06 Intake & Output 05/12/18 05/13/18 05/14/18 06:59 06:59 06:59 Intake Total 1263 Balance 1263 Weight 113.2 kg General appearance: PRESENT: no acute distress, morbidly obese Respiratory exam: PRESENT: other - No increased work of breathing. No tactile fremitus.. ABSENT: rales, rhonchi, wheezes Cardiovascular exam: PRESENT: RRR. ABSENT: gallop, rubs, systolic murmur Pulses: PRESENT: normal femoral pulses, normal dorsalis pedis pul GI/Abdominal exam: PRESENT: normal bowel sounds, soft. ABSENT: distended, hernia, mass, organolmegaly, tenderness Extremities exam: ABSENT: clubbing, joint swelling, pedal edema Neurological exam: PRESENT: alert, altered, awake, oriented to person, oriented to place, oriented to time, oriented to situation Psychiatric exam: PRESENT: depressed, suicidal ideation Skin exam: PRESENT: dry, intact, warm Results Laboratory Results: 05/13/18 05:34 05/13/18 05:34 05/13/18 05/13/18 05:34 05:34 WBC 8.0 RBC 4.29 L Hgb 14.2 Hct 40.2 MCV 94 MCH 33.0 MCHC 35.2 RDW 12.9 Plt Count 205 Seg Neutrophils % 51.9 Lymphocytes % 38.6 Monocytes % 7.4 Eosinophils % 1.4 Basophils % 0.7 Absolute Neutrophils 4.1 Absolute Lymphocytes 3.1 Absolute Monocytes 0.6 Absolute Eosinophils 0.1 Absolute Basophils 0.1 Sodium 142.0 Potassium 3.7 Chloride 104 Carbon Dioxide 27 Anion Gap 11 BUN 14 Creatinine 0.80 Est GFR ( Amer) > 60 Est GFR (Non-Af Amer) > 60 Glucose 99 Calcium 8.8 Magnesium 2.0 Total Bilirubin 0.5 AST 25 ALT 38 Alkaline Phosphatase 68 Total Protein 6.3 Albumin 3.8 05/12/18 05/12/1818 11:44 16:00 22:02 Troponin I < 0.012 < 0.012 < 0.012 Assessment & Plan - Diagnosis (1) Suicide attempt by drug ingestion Qualifiers: Encounter type: initial encounter Qualified Code(s): T50.902A - Poisoning by unspecified drugs, medicaments and biological substances, intentional self- harm, initial encounter Is this a current diagnosis for this admission?: Yes Plan: The patient will be admitted to a telemetry bed on suicide precautions. Psychiatry consult has been called on the patient. The patient is here under involuntary commitment. Await evaluation by psychiatry and their determination for appropriate disposition. (2) Tegretol toxicity Qualifiers: Encounter type: initial encounter Injury intent: intentional self-harm Qualified Code(s): T42.1X2A - Poisoning by iminostilbenes, intentional self-harm , initial encounter Is this a current diagnosis for this admission?: Yes Plan: IV fluids. Liver function tests are stable. (3) Overdose of antidepressant Qualifiers: Encounter type: initial encounter Injury intent: intentional self-harm Qualified Code(s): T43.202A - Poisoning by unspecified antidepressants, intentional self-harm, initial encounter Is this a current diagnosis for this admission?: Yes Plan: The patient will be admitted to a telemetry bed. Will check another EKG to monitor QTc. (4) Prolonged Q-T interval on ECG Is this a current diagnosis for this admission?: Yes Plan: QTc appears to be declining. Will check one more this am. (5) COPD (chronic obstructive pulmonary disease) Qualifiers: COPD type: unspecified COPD Qualified Code(s): J44.9 - Chronic obstructive pulmonary disease, unspecified Is this a current diagnosis for this admission?: Yes Plan: As needed bronchodilators. (6) CHF (congestive heart failure) Qualifiers: Heart failure type: unspecified Heart failure chronicity: chronic Qualified Code(s): I50.9 - Heart failure, unspecified Is this a current diagnosis for this admission?: Yes Plan: Appears stable. Will monitor volume status carefully. (7) Chronic back pain Qualifiers: Back pain location: low back pain Back pain laterality: left Is this a current diagnosis for this admission?: Yes Plan: The pain will be managed with ultram prn. The patient asserted to nursing that he took percocets for this pain. Nursing contacted pharmacies as well as the patient's PCP. He has not been prescribed this medication since 2015. - Time Time Spent with patient: 35 or more minutes Medications reviewed and adjusted accordingly: Yes Anticipated discharge: Other - As per psychiatry determination.
--- NOTE | 2018-05-13 14:40 | PSYCHOLOGICAL NOTE ---
Psych Note - Psych Note Psych Note: Reason for Consult: Suicidal ideation; intentional overdose Consent Permissions: none given Collateral: Maksim from [facility] program [phone] EMS reports pt. was faking being unresponsive on arrival, was flinching when eye lids were touch, pt. told to get up and he did, Father stated that he didn' t believe the pt. really took anything, the bottles were 10 yrs old and unknown if anything was still in them, pt. stated he took a handful. Clinician conducted checking with patient Patient disclosed he is currently not feeling suicidal. He reports that he is glad they were able to save him. Patient disclosed multiple stressors which include having no electricity, no transportation, and not being on his medications. Clinician conducted psychoeducation to assist the patient in understanding process of being evaluated and having provider follow you i.e. outpatient mental health services. Patient disclosed concern that if he does not get back on medications something like this will occur again down the road and "I do not want that to happen." Patient discloses difficulty in in maintaining employment because of feelings of being overwhelmed. He reports that his previous prescription of Adderall worked very well but was frustrated that new providers will not provide that medication to him. Patient continued to disclose that he is attempted to obtain Medicare/Medicaid however is been denied 3 times. No medication recommendations Diagnosis: 319 (F79) Unspecified Intellectual Disability per history 311 (F32.9) Unspecified Depressive Disorder per history Noncompliance Impression\\plan: Patient is recommended for rescind of IVC and is cleared from acute psychiatric services. Patient no longer meets IVC criteria per [place] GS 122C. Patient denies current suicidal ideation and openly engage with clinician in discussion of resources to assist with patient's stressors. As noted the patient demonstrated forward thinking in addition to denying intent when he stated that he did not want to end up hurting himself again. Patient was provided resources for the [facility], and [facility]. Patient is recommended for a full-scale psychological evaluation with his outpatient mental health provider to determine the patient's severity of intellectual disability deficit. Dr. Griffin was consulted and the care management this patient; attending physician is agreement with recommendations and disposition.
[2018-05-13 16:58] VITALS: BP 158/94
--- NOTE | 2018-05-13 17:23 | PDOC DISCHARGE SUMMARY ---
General - Admit/Disc Date/PCP Admission Date/Primary Care Provider: 05/12/18 09:57 AUREA CONTRERAS, Discharge Date: 05/13/18 - Discharge Diagnosis (1) Suicide attempt by drug ingestion Is this a current diagnosis for this admission?: Yes Summary: The patient was admitted and initially placed under involuntary committment. to a medical bed. His tegretol level was followed and he was placed on seizure precautions. His prolonged QTc was followed with serial EKG's and was evaluated by mental health. It has declined as has his tegretol level. Poison control states that he is safe to discharge. Mental health felt that the patient was safe for discharge and did not feel that this represented a suicide attempt. Upon admission the patient told me that he took this overdose because he was unable to get his antidepressants. He also told me that he had prescriptions for his antidepressants at home, but had not filled them. I will not write an antidepressant for this patient given his behavior in this overdose. Instead I will have the patient follow up with his PCP with regard for his depression. The patient would probably benefit from some behavioral therapy with regard to his stressors. He will be discharged to home in good condition. (2) Tegretol toxicity Is this a current diagnosis for this admission?: Yes (3) Overdose of antidepressant Is this a current diagnosis for this admission?: Yes (4) Prolonged Q-T interval on ECG Is this a current diagnosis for this admission?: Yes (5) COPD (chronic obstructive pulmonary disease) Is this a current diagnosis for this admission?: Yes (6) CHF (congestive heart failure) Is this a current diagnosis for this admission?: Yes (7) Chronic back pain Is this a current diagnosis for this admission?: Yes - Additional Information Resuscitation Status: Full Code Discharge Diet: Regular Discharge Activity: Activity As Tolerated Home Medications: No Home Medications 05/12/18 History of Present Illness History of Present Illness: DEWAYNE SYLVESTER is a 47 year old male who carries a past medical history of severe depression, anxiety, ADD, CHF, COPD, and tobacco abuse. The patient states that he has been having difficulty getting his psychiatric medications lately due to his losing his insurance. He states that previously his depression was well controlled. He also states that he has had siginificant economic and social stressors lately including separation from his daughter and not having seen her for months. He states that he took a "handful" of each. Physical Exam Vital Signs: Temp Pulse Resp BP Pulse Ox 98.3 F 67 16 158/94 H 98 05/13/18 15:56 05/13/18 15:56 05/13/18 15:56 05/13/18 15:56 05/13/18 15:56 Intake & Output 05/12/18 05/13/18 05/14/18 06:59 06:59 06:59 Intake Total 1263 Balance 1263 Weight 113.2 kg Additional comments: See progress note dated 05/13/2018 for physical exam on the date of discharge. Results Laboratory Results: 05/13/18 05:34 05/13/18 05:34 05/13/18 05/13/18 05:34 05:34 WBC 8.0 RBC 4.29 L Hgb 14.2 Hct 40.2 MCV 94 MCH 33.0 MCHC 35.2 RDW 12.9 Plt Count 205 Seg Neutrophils % 51.9 Lymphocytes % 38.6 Monocytes % 7.4 Eosinophils % 1.4 Basophils % 0.7 Absolute Neutrophils 4.1 Absolute Lymphocytes 3.1 Absolute Monocytes 0.6 Absolute Eosinophils 0.1 Absolute Basophils 0.1 Sodium 142.0 Potassium 3.7 Chloride 104 Carbon Dioxide 27 Anion Gap 11 BUN 14 Creatinine 0.80 Est GFR ( Amer) > 60 Est GFR (Non-Af Amer) > 60 Glucose 99 Calcium 8.8 Magnesium 2.0 Total Bilirubin 0.5 AST 25 ALT 38 Alkaline Phosphatase 68 Total Protein 6.3 Albumin 3.8 05/12/18 05/12/18 05/12/18 11:44 16:00 22:02 Troponin I < 0.012 < 0.012 < 0.012 Qualifiers - * PATIENT BEING DISCHARGED WITH ANY OF THE FOLLOWING DIAGNOSIS: No
--- NOTE | 2018-05-13 22:04 | EKG REPORT ---
SEVERITY:- ABNORMAL ECG - SINUS RHYTHM PROBABLE LEFT ATRIAL ABNORMALITY INCOMPLETE RIGHT BUNDLE BRANCH BLOCK BORDERLINE T WAVE ABNORMALITIES : Confirmed by: Meri Hamm 13-May-2018 22:03:48
== END 2018-05-13 18:51 | disposition home or self-care (01) | DRG 918 ==
LOC: ER 20:11 → EH 05-12 09:57 → 3S 05-12 11:56
PROVIDERS: ADMIT Internal Medicine; ATTEND Internal Medicine
DX: T43.222A Poisoning by selective serotonin reuptake inhibitors, intentional self-harm, initial encounter (principal); T42.1X2A Poisoning by iminostilbenes, intentional self-harm, initial encounter; I50.9 Heart failure, unspecified; I10 Essential (primary) hypertension; J44.9 Chronic obstructive pulmonary disease, unspecified; I45.81 Long QT syndrome; M54.9 Dorsalgia, unspecified; F90.9 Attention-deficit hyperactivity disorder, unspecified type; F32.9 Major depressive disorder, single episode, unspecified; F79 Unspecified intellectual disabilities; F17.210 Nicotine dependence, cigarettes, uncomplicated; Y92.098 Other place in other non-institutional residence as the place of occurrence of the external cause
CPT/HCPCS: 36415; 80053; 80156; 80307; 81001; 83735; 84484; 85025; 93005; 93010; 99285; J1650

== ENCOUNTER 2018-05-20 11:10 | Emergency (ER) | payer SELFPAY ==
[2018-05-20] MEDS ORDERED: CYCLOBENZAPRINE HCL 10 MG TABLET PO ONE (12:33)
[2018-05-20] MEDS ORDERED: DICLOFENAC SODIUM 50 MG TABLET.DR PO ONE (12:33)
--- NOTE | 2018-05-20 12:46 | ER Document Report ---
ED General - General Chief Complaint: Shoulder Pain Stated Complaint: RIGHT SHOULDER PAIN Time Seen by Provider: 05/20/18 12:27 Mode of Arrival: Ambulatory Information source: Patient TRAVEL OUTSIDE OF THE [place] IN LAST 30 DAYS: No - HPI Notes: Patient is a 47-year-old male history of psychiatric issues, previous overdose, COPD presents to the emergency department with report that 1 week ago he was moving some heavy furniture and injured his right posterior shoulder and reports pain to the shoulder since that time. The patient denies any numbness or paresthesia. He reports no chest pain or difficulty breathing or neck pain or focal weakness. The patient denies any acute back injury. - Related Data Allergies/Adverse Reactions: oragel Allergy (Intermediate, Uncoded 05/20/18 11:11) ambesol Allergy (Mild, Uncoded 05/20/18 11:11) Past Medical History - General Information source: Patient - Social History Smoking Status: Current Every Day Smoker Frequency of alcohol use: Occasional Drug Abuse: None Family History: Arthritis, CAD, COPD, DM, Hyperlipidemia, Hypertension Patient has suicidal ideation: No Patient has homicidal ideation: No - Past Medical History Cardiac Medical History: Reports: Hx Atrial Fibrillation - Resolved after cardiac ablation, Hx Hypertension Pulmonary Medical History: Reports: Hx Bronchitis, Hx COPD Neurological Medical History: Reports: Hx Migraine Renal/ Medical History: Denies: Hx Peritoneal Dialysis Musculoskeletal Medical History: Reports Hx Arthritis, Reports Hx Musculoskeletal Deformity, Reports Hx Musculoskeletal Trauma - Herniated disc sciatica chronic pain in his back Psychiatric Medical History: Reports: Hx Anxiety, Hx Attention Deficit Hyperactivity Disorder, Hx Depression Past Surgical History: Reports: Hx Cardiac Catheterization - ablation, Hx Cardiac Surgery - as a child, Other - Open heart surgery at age [age] to correct a septal defect. - Immunizations Immunizations up to date: Yes Hx Diphtheria, Pertussis, Tetanus Vaccination: Yes - 2012 Review of Systems - Review of Systems Notes: REVIEW OF SYSTEMS: CONSTITUTIONAL : Denies fever, chills, or sweats. Denies recent illness. EENT: Denies eye, ear, throat, or mouth pain or symptoms. Denies nasal or sinus congestion or discharge. Denies throat, tongue, or mouth swelling or difficulty swallowing. CARDIOVASCULAR: Denies chest pain. Denies palpitations or racing or irregular heart beat. Denies ankle edema. RESPIRATORY: Denies cough, cold, or chest congestion. Denies shortness of breath, difficulty breathing, or wheezing. GASTROINTESTINAL: Denies abdominal pain or distention. Denies nausea, vomiting , or diarrhea. Denies blood in vomitus, stools, or per rectum. Denies black, tarry stools. Denies constipation. GENITOURINARY: Denies difficulty urinating, painful urination, burning, frequency, blood in urine, or discharge. MUSCULOSKELETAL: Denies back or neck pain or stiffness. SKIN: Denies rash, lesions or sores. HEMATOLOGIC : Denies easy bruising or bleeding. LYMPHATIC: Denies swollen, enlarged glands. NEUROLOGICAL: Denies confusion or altered mental status. Denies passing out or loss of consciousness. Denies dizziness or lightheadedness. Denies headache. Denies weakness or paralysis or loss of use of either side. Denies problems with gait or speech. Denies sensory loss, numbness, or tingling. Denies seizures. PSYCHIATRIC: Denies anxiety or stress. Denies depression, suicidal ideation, or homicidal ideation. ALL OTHER SYSTEMS REVIEWED AND NEGATIVE. Dictation was performed using [employer] voice recognition software Physical Exam - Vital signs Vitals: Temp Pulse Resp BP Pulse Ox 98.2 F 83 16 147/84 H 98 05/20/18 11:15 05/20/18 11:15 05/20/18 11:15 05/20/18 11:15 05/20/18 11:15 - Notes Notes: PHYSICAL EXAMINATION: GENERAL: Well-appearing, well-nourished and in no acute distress. HEAD: Atraumatic, normocephalic. EYES: Pupils equal round and reactive to light, extraocular movements intact, sclera anicteric, conjunctiva are normal. ENT: Nares patent, oropharynx clear without exudates. Moist mucous membranes. NECK: Normal range of motion, supple without lymphadenopathy LUNGS: Breath sounds clear to auscultation bilaterally and equal. No wheezes rales or rhonchi. HEART: Regular rate and rhythm without murmurs ABDOMEN: Soft, nontender, nondistended abdomen. No guarding, no rebound. No masses appreciated. Musculoskeletal: No cyanosis. Pain through the right posterior and lateral shoulder. No erythema or crepitance or bony deformity. Distally, the patient is neurovascularly intact with good distal sensation and capillary refill and pulses. No elbow pain or wrist pain or hand pain. NEUROLOGICAL: Cranial nerves grossly intact. Normal speech, normal gait. Normal sensory, motor exams PSYCH: Normal mood, normal affect. SKIN: Warm, Dry, normal turgor, no rashes or lesions noted. Course - Re-evaluation Re-evalutation: 05/20/18 12:45 Patient was given diclofenac and Flexeril. 05/20/18 13:07 R arm sling placed. X-ray is reviewed by me showed no evidence for fracture or degenerative changes or other abnormality. Patient on repeat exam had pain with abduction to the shoulder but did have a reasonably good range of motion. No evidence for fracture or neurovascular compromise. I cannot exclude rotator cuff injury. 05/20/18 13:17 - Vital Signs Vital signs: Temp Pulse Resp BP Pulse Ox 98.2 F 83 16 147/84 H 98 05/20/18 11:15 05/20/18 11:15 05/20/18 11:15 05/20/18 11:15 05/20/18 11:15 Discharge - Discharge Clinical Impression: Shoulder sprain Qualifiers: Encounter type: initial encounter Shoulder sprain type: rotator cuff capsule Laterality: right Qualified Code(s): S43.421A - Sprain of right rotator cuff capsule, initial encounter Condition: Stable Disposition: HOME, SELF-CARE Instructions: Shoulder Injury ([facility]) Additional Instructions: Follow-up with orthopedics in case of continued pain. Prescriptions: Diclofenac Sodium [Voltaren] 75 mg PO Q12HP PRN #30 tablet.dr POWERS Reason: Cyclobenzaprine HCl [Flexeril 10 mg Tablet] 10 mg PO TIDP PRN #20 tab PRN Reason: Referrals: AUREA CONTRERAS DO [Primary Care Provider] - Follow up as needed PROMISE EDWARDS DO [ACTIVE STAFF] - Follow up as needed
--- NOTE | 2018-05-20 13:12 | RADIOLOGY REPORT (SQ) ---
EXAM DESCRIPTION: SHOULDER RIGHT 2 OR MORE VIEWS COMPLETED DATE/TIME: 05/20/2018 12:54 pm REASON FOR STUDY: R shoulder pain after lifting injury COMPARISON: None. NUMBER OF VIEWS: Three views. TECHNIQUE: Internal rotation, external rotation, and Y view images acquired of the right shoulder. LIMITATIONS: None. FINDINGS: MINERALIZATION: Normal. BONES: No acute fracture or dislocation. No worrisome bone lesions. JOINTS: No dislocation. VISUALIZED LUNGS AND RIBS: No pneumothorax. No rib fracture. SOFT TISSUES: No radiopaque foreign body. OTHER: No other significant finding. IMPRESSION: NEGATIVE STUDY OF THE RIGHT SHOULDER. NO RADIOGRAPHIC EVIDENCE OF ACUTE INJURY. TECHNICAL DOCUMENTATION: JOB ID: [id number] [employer]- All Rights Reserved Reading location - IP/workstation name: [email or web address]
[2018-05-20 13:14] VITALS: BP 144/83
== END 2018-05-20 13:32 | disposition home or self-care (01) ==
LOC: ER 11:10
DX: S43.421A Sprain of right rotator cuff capsule, initial encounter (principal); X50.0XXA Overexertion from strenuous movement or load, initial encounter; F17.200 Nicotine dependence, unspecified, uncomplicated; J44.9 Chronic obstructive pulmonary disease, unspecified; I10 Essential (primary) hypertension
CPT/HCPCS: 99283; 73030; J3490

== ENCOUNTER 2018-06-05 19:54 | Emergency (ER) | payer SELFPAY ==
[2018-06-06] MEDS ORDERED: KETOROLAC TROMETHAMINE 60 MG/2 ML SDV IM ONE (00:17)
--- NOTE | 2018-06-06 00:17 | ER Document Report ---
ED Medical Screen (RME) - General Chief Complaint: Facial Injury Stated Complaint: FALL/BODY PAIN Time Seen by Provider: 06/06/18 00:15 Mode of Arrival: Wheelchair Information source: Patient Notes: Patient is a 47-year-old male who reports that he slipped and fell in his kitchen tonight at about 630. Patient complaining of left hip and left shoulder pain. Patient denies any other symptoms, denies hitting his head. Exam: Tenderness to palpation to left thigh/hip. I have greeted and performed a rapid initial assessment of this patient. A comprehensive ED assessment and evaluation of the patient, analysis of test results and completion of the medical decision making process will be conducted by additional ED providers. Dictation of this chart was performed using voice recognition software; therefore, there may be some unintended grammatical errors. TRAVEL OUTSIDE OF THE [place] IN LAST 30 DAYS: No - Related Data Allergies/Adverse Reactions: oragel Allergy (Intermediate, Uncoded 06/05/18 19:54) ambesol Allergy (Mild, Uncoded 06/05/18 19:54) Past Medical History - Past Medical History Cardiac Medical History: Reports: Hx Atrial Fibrillation - Resolved after cardiac ablation, Hx Hypertension Pulmonary Medical History: Reports: Hx Bronchitis, Hx COPD Neurological Medical History: Reports: Hx Migraine Renal/ Medical History: Denies: Hx Peritoneal Dialysis Musculoskeltal Medical History: Reports Hx Arthritis, Reports Hx Musculoskeletal Deformity, Reports Hx Musculoskeletal Trauma - Herniated disc sciatica chronic pain in his back Psychiatric Medical History: Reports: Hx Anxiety, Hx Attention Deficit Hyperactivity Disorder, Hx Depression Past Surgical History: Reports: Hx Cardiac Catheterization - ablation, Hx Cardiac Surgery - as a child, Other - Open heart surgery at age [age] to correct a septal defect. - Immunizations Immunizations up to date: Yes Hx Diphtheria, Pertussis, Tetanus Vaccination: Yes - 2013 History of Influenza Vaccine for 07/2017 - 12/2017 Season: Yes Physical Exam - Vital signs Vitals: Temp Pulse Resp BP Pulse Ox 98.7 F 90 19 159/87 H 98 06/05/18 20:00 06/05/18 20:00 06/05/18 20:00 06/05/18 20:00 06/05/18 20:00 Course - Vital Signs Vital signs: Temp Pulse Resp BP Pulse Ox 98.7 F 90 19 159/87 H 98 06/05/18 20:00 06/05/18 20:00 06/05/18 20:00 06/05/18 20:00 06/05/18 20:00 Doctor's Discharge - Discharge Referrals: AUREA CONTRERAS DO [Primary Care Provider] - Follow up as needed
--- NOTE | 2018-06-06 00:54 | RADIOLOGY REPORT (SQ) ---
EXAM DESCRIPTION: XR HIP 2 OR MORE VIEWS COMPLETED DATE/TME: 06/06/2018 00:18 CLINICAL HISTORY: 47 years, Male, fall/injury COMPARISON: None. FINDINGS: Single view of the pelvis and lateral view of the left hip. No acute fracture or dislocation. Normal osseous mineralization. Bilateral hip joint spaces are preserved. IMPRESSION: No acute fracture. 2010 [facility] [employer]- All Rights Reserved
--- NOTE | 2018-06-06 00:56 | RADIOLOGY REPORT (SQ) ---
EXAM DESCRIPTION: XR SHOULDER 2 OR MORE VIEWS COMPLETED DATE/TME: 06/06/2018 00:18 CLINICAL HISTORY: 47 years, Male, fall/injury COMPARISON: None. FINDINGS: 2 views of the left shoulder. No acute fracture or dislocation. Normal osseous mineralization. No abnormalities in the visualized left hemithorax. IMPRESSION: No acute fracture or dislocation. 2010 [employer] [facility] [employer]- All Rights Reserved
[2018-06-06] MEDS ORDERED: LIDOCAINE 5% (700 MG) TRANSDERMAL ADH..PATCH TP ONE (03:39)
--- NOTE | 2018-06-06 03:39 | ER Document Report ---
ED General - General Chief Complaint: Facial Injury Stated Complaint: FALL/BODY PAIN Time Seen by Provider: 06/06/18 00:15 Mode of Arrival: Wheelchair TRAVEL OUTSIDE OF THE [place] IN LAST 30 DAYS: No - HPI Patient complains to provider of: Left shoulder left hip pain Notes: His community slipped and fell hitting his left shoulder listed. Patient denies any loss consciousness. Patient is currently from my evaluation. Patient according to EMS report was amatory it seen. Denies any other injuries. - Related Data Allergies/Adverse Reactions: oragel Allergy (Intermediate, Uncoded 06/05/18 19:54) ambesol Allergy (Mild, Uncoded 06/05/18 19:54) Past Medical History - General Information source: Patient - Social History Smoking Status: Unknown if Ever Smoked Family History: Arthritis, CAD, COPD, DM, Hyperlipidemia, Hypertension - Past Medical History Cardiac Medical History: Reports: Hx Atrial Fibrillation - Resolved after cardiac ablation, Hx Hypertension Pulmonary Medical History: Reports: Hx Bronchitis, Hx COPD Neurological Medical History: Reports: Hx Migraine Renal/ Medical History: Denies: Hx Peritoneal Dialysis Musculoskeletal Medical History: Reports Hx Arthritis, Reports Hx Musculoskeletal Deformity, Reports Hx Musculoskeletal Trauma - Herniated disc sciatica chronic pain in his back Psychiatric Medical History: Reports: Hx Anxiety, Hx Attention Deficit Hyperactivity Disorder, Hx Depression Past Surgical History: Reports: Hx Cardiac Catheterization - ablation, Hx Cardiac Surgery - as a child, Other - Open heart surgery at age [age] to correct a septal defect. - Immunizations Immunizations up to date: Yes Hx Diphtheria, Pertussis, Tetanus Vaccination: Yes - 2013 Review of Systems - Review of Systems Constitutional: No symptoms reported EENT: No symptoms reported Cardiovascular: No symptoms reported Respiratory: No symptoms reported Gastrointestinal: No symptoms reported Genitourinary: No symptoms reported Male Genitourinary: No symptoms reported Musculoskeletal: Other - Left shoulder left hip Skin: No symptoms reported Hematologic/Lymphatic: No symptoms reported Neurological/Psychological: No symptoms reported -: Yes All other systems reviewed and negative Physical Exam - Vital signs Vitals: Temp Pulse Resp BP Pulse Ox 98.7 F 90 19 159/87 H 98 06/05/18 20:00 06/05/18 20:00 06/05/18 20:00 06/05/18 20:00 06/05/18 20:00 Interpretation: Normal - General General appearance: Appears well, Alert - HEENT Head: Normocephalic, Atraumatic Eyes: Normal Pupils: PERRL - Respiratory Respiratory status: No respiratory distress Chest status: Nontender Breath sounds: Normal Chest palpation: Normal - Cardiovascular Rhythm: Regular Heart sounds: Normal auscultation Murmur: No - Abdominal Inspection: Normal Distension: No distension Bowel sounds: Normal Tenderness: Nontender Organomegaly: No organomegaly - Back Back: Normal, Nontender - Extremities General upper extremity: Normal inspection, Nontender, Normal color, Normal ROM , Normal temperature General lower extremity: Nontender, Normal color, Normal ROM, Normal temperature , Normal weight bearing. No: Normal inspection - Slight tenderness palpation of the greater trochanter left hip., Gricelda's sign - Neurological Neuro grossly intact: Yes Cognition: Normal Orientation: AAOx4 Doris Coma Scale Eye Opening: Spontaneous [place] Coma Scale Verbal: Oriented [place] Coma Scale Motor: Obeys Commands Cl[place] Coma Scale Total: 15 Speech: Normal Motor strength normal: LUE, RUE, LLE, RLE Sensory: Normal - Psychological Associated symptoms: Normal affect, Normal mood - Skin Skin Temperature: Warm Skin Moisture: Dry Skin Color: Normal Course - Re-evaluation Re-evalutation: 06/06/18 06:24 X-ray showed no acute pathology. Patient was given lidocaine patch and anti- inflammatory medication for pain control. Patient was discharged home. - Vital Signs Vital signs: Temp Pulse Resp BP Pulse Ox 98.5 F 75 16 156/99 H 98 06/06/18 04:12 06/06/18 04:12 06/06/18 04:12 06/06/18 04:12 06/06/18 04:12 Discharge - Discharge Clinical Impression: Fall Qualifiers: Encounter type: initial encounter Qualified Code(s): W19.XXXA - Unspecified fall, initial encounter Arthralgia Qualifiers: Joint pain location: unspecified Qualified Code(s): M25.50 - Pain in unspecified joint Condition: Good Disposition: HOME, SELF-CARE Admitting Provider: Surgicalist Instructions: Anti-Inflammatory Medication ([facility]), Ice Massage ([facility]), Ice Packs ([facility]), Warm Packs ([facility]) Additional Instructions: Your x-ray today did not show any signs of fracture more likely have a deep contusion. He will continue to have pain will likely for 5-7 days. Will recommend placing ice packs to the area and warm packs to the area. Please take Tylenol for pain control and also take the diclofenac for pain control as well. Return to ER if symptoms worsen. Prescriptions: Diclofenac Sodium 75 mg PO BID #14 tablet. Referrals: AUREA CONTRERAS DO [Primary Care Provider] - Follow up in 3-5 days
[2018-06-06 04:14] VITALS: BP 156/99
== END 2018-06-06 04:12 | disposition home or self-care (01) ==
LOC: ER 19:54
DX: M79.1 Myalgia (principal); M25.50 Pain in unspecified joint; W01.0XXA Fall on same level from slipping, tripping and stumbling without subsequent striking against object, initial encounter; I48.91 Unspecified atrial fibrillation; I10 Essential (primary) hypertension
CPT/HCPCS: 99284; 96372; 73502; 73030; J1885

== ENCOUNTER 2018-07-20 12:37 | Emergency (ER) | payer SELFPAY ==
--- NOTE | 2018-07-20 13:28 | RADIOLOGY REPORT (SQ) ---
EXAM DESCRIPTION: CHEST 2 VIEWS COMPLETED DATE/TIME: 07/20/2018 12:57 pm REASON FOR STUDY: CP COMPARISON: Two-view chest 12/06/2017, 10/01/2017, 12/06/2016 EXAM PARAMETERS: NUMBER OF VIEWS: two views TECHNIQUE: Digital Frontal and Lateral radiographic views of the chest acquired. RADIATION DOSE: NA LIMITATIONS: none FINDINGS: LUNGS AND PLEURA: No opacities, masses or pneumothorax. No pleural effusion. MEDIASTINUM AND HILAR STRUCTURES: No masses or contour abnormalities. HEART AND VASCULAR STRUCTURES: Heart normal size. No evidence for failure. BONES: No acute findings. HARDWARE: There are tiny sternotomy wires from remote prior pediatric cardiac surgery. OTHER: No other significant finding. IMPRESSION: No acute infiltrates. No pleural effusion. No cardiomegaly. Tiny sternotomy wires from remote prior pediatric cardiac surgery TECHNICAL DOCUMENTATION: JOB ID: [id number] [employer]- All Rights Reserved Reading location - IP/workstation name: [email or web address]
--- NOTE | 2018-07-20 14:31 | EKG REPORT ---
SEVERITY:- BORDERLINE ECG - SINUS RHYTHM LEFT AXIS DEVIATION BORDERLINE T ABNORMALITIES, LATERAL LEADS : Confirmed by: Kennedi Reynolds MD 20-Jul-2018 14:30:03
--- NOTE | 2018-07-20 15:07 | ER Document Report ---
ED Medical Screen (RME) - General Chief Complaint: Chest Pain Stated Complaint: CHEST PAIN/SHORTNESS OF BREATH Time Seen by Provider: 07/20/18 14:59 Mode of Arrival: Ambulatory Information source: Patient Notes: Patient is a 47-year-old male who presents with multiple complaints. Patient reports chest pain across his entire chest feels like a sharp stabbing pain. Patient also reports abdominal distention causing shortness of breath. Patient states he has been having a hard time passing bowel movements. Patient reports past medical history of CHF and hypertension, states he has not taken any of his medications in a very long time as he does not have insurance. Exam: Alert, oriented and in no acute distress. Mild wheeze noted to left side. Abdomen large, round, nontender but firm. I have greeted and performed a rapid initial assessment of this patient. A comprehensive ED assessment and evaluation of the patient, analysis of test results and completion of the medical decision making process will be conducted by additional ED providers. Dictation of this chart was performed using voice recognition software; therefore, there may be some unintended grammatical errors. TRAVEL OUTSIDE OF THE [place] IN LAST 30 DAYS: No - Related Data Allergies/Adverse Reactions: oragel Allergy (Intermediate, Uncoded 07/20/18 12:42) ambesol Allergy (Mild, Uncoded 07/20/18 12:42) Past Medical History - Social History Chew tobacco use (# tins/day): No Frequency of alcohol use: Occasional Drug Abuse: None - Past Medical History Cardiac Medical History: Reports: Hx Atrial Fibrillation, Hx Hypertension Pulmonary Medical History: Reports: Hx Bronchitis, Hx COPD Neurological Medical History: Reports: Hx Migraine Renal/ Medical History: Denies: Hx Peritoneal Dialysis Musculoskeltal Medical History: Reports Hx Arthritis, Reports Hx Musculoskeletal Deformity, Reports Hx Musculoskeletal Trauma - Herniated disc sciatica chronic pain in his back Psychiatric Medical History: Reports: Hx Anxiety, Hx Attention Deficit Hyperactivity Disorder, Hx Depression Past Surgical History: Reports: Hx Cardiac Catheterization - ablation, Hx Cardiac Surgery - as a child, Other - Open heart surgery at age [age] to correct a septal defect. - Immunizations Immunizations up to date: Yes Hx Diphtheria, Pertussis, Tetanus Vaccination: Yes - 2013 History of Influenza Vaccine for 07/2017 - 12/2017 Season: Yes Physical Exam - Vital signs Vitals: Temp Pulse Resp BP Pulse Ox 98.4 F 82 20 136/81 H 100 07/20/18 13:05 07/20/18 13:05 07/20/18 13:05 07/20/18 13:05 07/20/18 13:05 Course - Vital Signs Vital signs: Temp Pulse Resp BP Pulse Ox 98.4 F 82 20 136/81 H 100 07/20/18 13:05 07/20/18 13:05 07/20/18 13:05 07/20/18 13:05 07/20/18 13:05 Doctor's Discharge - Discharge Referrals: AUREA CONTRERAS DO [Primary Care Provider] - Follow up as needed
--- NOTE | 2018-07-20 16:04 | RADIOLOGY REPORT (SQ) ---
EXAM DESCRIPTION: KUB/ABDOMEN (SINGLE VIEW) COMPLETED DATE/TIME: 07/20/2018 3:55 pm REASON FOR STUDY: abd bloating eval for constipation COMPARISON: None. NUMBER OF VIEWS: One view. TECHNIQUE: Supine radiographic image of the abdomen acquired. LIMITATIONS: None. FINDINGS: BOWEL GAS PATTERN: Normal bowel gas pattern. Some scattered stool. No dilated loops. CALCIFICATIONS: No suspicious calcifications. SOFT TISSUES: No gross mass or suggestion of organomegaly. HARDWARE: None in the abdomen. BONES: No acute fracture. No worrisome bone lesions. OTHER: No other significant finding. IMPRESSION: NO RADIOGRAPHIC EVIDENCE FOR ACUTE ABDOMINAL DISEASE. TECHNICAL DOCUMENTATION: JOB ID: [id number] [employer]- All Rights Reserved Reading location - IP/workstation name: [email or web address]
[2018-07-20 16:24] LABS: ABSOLUTE BASOPHILS # (AUTO) 0.1 10^3/uL (0.0-0.2); ABSOLUTE EOSINOPHILS # (AUTO) 0.1 10^3/uL (0.0-0.6); ABSOLUTE LYMPHOCYTES (AUTO) 2.1 10^3/uL (0.5-4.7); ABSOLUTE MONOCYTES (AUTO) 0.7 10^3/uL (0.1-1.4); ABSOLUTE NEUT (AUTO) 8.6 10^3/uL (1.7-8.2); BASOPHILS % (AUTO) 0.7 % (0-2); HEMATOCRIT 42.5 % (37.9-51.0); HEMOGLOBIN 14.6 g/dL (13.5-17.0); LYMPHOCYTES % (AUTO) 18.4 % (13-45); MEAN CORPUSCULAR HEMOGLOBIN 32.9 pg (27.0-33.4); MEAN CORPUSCULAR HGB CONC 34.3 g/dL (32.0-36.0); MEAN CORPUSCULAR VOLUME 96 fl (80-97); PLATELET COUNT 285 10^3/uL (150-450); RED BLOOD COUNT 4.43 10^6/uL (4.35-5.55); RED CELL DISTRIBUTION WIDTH 13.5 % (11.5-14.0); SEGMENTED NEUTROPHILS % (AUTO) 73.9 % (42-78); TOTAL CELLS COUNTED % (AUTO) 100 %; WHITE BLOOD COUNT 11.6 10^3/uL (4.0-10.5)
[2018-07-20 16:31] LABS: AMORPHOUS SEDIMENT,URINE TRACE /HPF; APPEARANCE,URINE CLOUDY; BILIRUBIN,URINE NEGATIVE (NEGATIVE); COLOR,URINE YELLOW; GLUCOSE, URINE NEGATIVE (NEGATIVE); KETONES,URINE NEGATIVE (NEGATIVE); LEUKOCYTE ESTERASE,URINE NEGATIVE (NEGATIVE); NITRITE,URINE NEGATIVE (NEGATIVE); PROTEIN,URINE NEGATIVE (NEGATIVE); URINE SPECIFIC GRAVITY 1.015; UROBILINOGEN,URINE NEGATIVE mg/dL (<2.0)
[2018-07-20] MEDS ORDERED: IBUPROFEN 600 MG TABLET PO ONE (17:30)
[2018-07-20 18:02] LABS: ALANINE AMINOTRANSFERASE 28 U/L (21-72); ALBUMIN 4.2 g/dL (3.5-5.0); ALKALINE PHOSPHATASE 71 U/L (38-126); ANION GAP 8 (5-19); ASPARTATE AMINO TRANSFERASE 23 U/L (17-59); BILIRUBIN,DIRECT 0.2 mg/dL (0.0-0.4); BILIRUBIN,TOTAL 0.4 mg/dL (0.2-1.3); BLOOD UREA NITROGEN 11 mg/dL (7-20); CALCIUM 9.9 mg/dL (8.4-10.2); CARBON DIOXIDE 27 mmol/L (22-30); CHLORIDE 105 mmol/L (98-107); CREATINE KINASE 116 U/L (55-170); GLUCOSE 109 mg/dL (75-110); POTASSIUM 4.8 mmol/L (3.6-5.0); SODIUM 140.3 mmol/L (137-145); TOTAL PROTEIN 6.9 g/dL (6.3-8.2)
[2018-07-20 18:14] LABS: CREATINE KINASE MB 0.67 ng/mL (<4.55); NT PRO BNP 260 pg/mL (<125)
[2018-07-20 18:16] LABS: TROPONIN I < 0.012 ng/mL
[2018-07-20] MEDS ORDERED: MORPHINE SULFATE 10 MG/ML INJ IV ONE ×2 (19:28→22:57)
[2018-07-20] MEDS ORDERED: ONDANSETRON HCL INJ/PF 4 MG/2 ML SDV IV ONE (19:28)
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
--- NOTE | 2018-07-20 22:38 | RADIOLOGY REPORT (SQ) ---
EXAM DESCRIPTION: CT ABDOMEN PELVIS WITH IV CONTRAST COMPLETED DATE/TME: 07/20/2018 00:00 CLINICAL HISTORY: 47 years, Male, rlq pain All CT scanners at this facility use dose modulation, iterative reconstruction, and/or weight based dosing when appropriate to reduce radiation dose to as low as reasonably achievable (ALARA). [facility]: Dose Right [facility]: CareDose [facility]: Dose Right [facility]: Teradose 4D [facility]: [employer] LIMITATIONS: None. FINDINGS: Visualized lung bases are within normal limits. Liver, spleen, pancreas, gallbladder, adrenal glands and kidneys are within normal limits. No hydronephrosis or biliary dilatation. No dilated loops of bowel to suggest obstruction. The appendix is normal. No free fluid or free air. No abdominal or pelvic adenopathy. Abdominal aorta is mildly calcified without aneurysm. Bladder is unremarkable. IMPRESSION: No acute disease. No evidence for acute appendicitis.
[2018-07-20] MEDS ORDERED: ONDANSETRON ODT 4 MG TAB (6 TAB/ER DISP) PO PRN (23:02)
[2018-07-20] MEDS ORDERED: HYDROCODONE/ACETAMINOPHEN 5-325 MG (6 TAB/ER DISP) PO PRN (23:03)
[2018-07-20 23:20] VITALS: BP 131/86
== END 2018-07-20 23:46 | disposition home or self-care (01) ==
LOC: ER 12:37
DX: R10.31 Right lower quadrant pain (principal); R11.0 Nausea; J44.9 Chronic obstructive pulmonary disease, unspecified; R05 Cough; F17.210 Nicotine dependence, cigarettes, uncomplicated; I10 Essential (primary) hypertension; Z88.6 Allergy status to analgesic agent
CPT/HCPCS: 93005; 96376; 99285; 96374; 96375; 36415; 82553; 82550; 85025; 80053; 81001; 84484; 83880; 71046; 74018; 74177; 93010; J2270; J2405

== ENCOUNTER 2018-08-15 13:52 | Emergency (ER) | payer SELFPAY ==
[2018-08-15 13:58] VITALS: BP 165/90
[2018-08-15] MEDS ORDERED: HYDROCODONE/ACETAMINOPHEN 5-325 MG TABLET PO ONE (14:12)
--- NOTE | 2018-08-15 14:18 | ER Document Report ---
HPI - HPI Patient complains to provider of: Right ankle injury Onset: Last week Onset/Duration: Worse Quality of pain: Achy Pain Level: 5 Context: Patient states that he injured his ankle last week but the pain gradually started to improve. Patient states last night that the ankle gave out and caused him to fall. Patient complains of right ankle and foot pain. Patient does have swelling. Associated Symptoms: Other - Right ankle and foot injury Exacerbated by: Standing, Movement, Walking Relieved by: Denies Similar symptoms previously: No Recently seen / treated by doctor: Yes - ROS ROS below otherwise negative: Yes Systems Reviewed and Negative: Yes All other systems reviewed and negative - GASTROINTESTINAL Gastrointestinal: DENIES: Nausea - REPRODUCTIVE Reproductive: DENIES: : - MUSCULOSKELETAL Musculoskeletal: REPORTS: Extremity pain, Swelling - DERM Skin Color: Normal Skin Problems: None Past Medical History - General Information source: Patient - Social History Smoking Status: Current Every Day Smoker Smoking Education Provided: Yes Frequency of alcohol use: Occasional Drug Abuse: None Occupation: none Lives with: Family Family History: Arthritis, CAD, COPD, DM, Hyperlipidemia, Hypertension Patient has suicidal ideation: No Patient has homicidal ideation: No - Past Medical History Cardiac Medical History: Reports: Hx Atrial Fibrillation, Hx Hypertension Pulmonary Medical History: Reports: Hx Bronchitis, Hx COPD Neurological Medical History: Reports: Hx Migraine Renal/ Medical History: Denies: Hx Peritoneal Dialysis Musculoskeletal Medical History: Reports Hx Arthritis, Reports Hx Musculoskeletal Deformity, Reports Hx Musculoskeletal Trauma - Herniated disc sciatica chronic pain in his back Psychiatric Medical History: Reports: Hx Anxiety, Hx Attention Deficit Hyperactivity Disorder, Hx Depression Past Surgical History: Reports: Hx Cardiac Catheterization - ablation, Hx Cardiac Surgery - as a child, Other - Open heart surgery at age [age] to correct a septal defect. - Immunizations Immunizations up to date: Yes Hx Diphtheria, Pertussis, Tetanus Vaccination: Yes - 2013 Vertical Provider Document - CONSTITUTIONAL Agree With Documented VS: Yes Exam Limitations: No Limitations General Appearance: WD/WN, No Apparent Distress - INFECTION CONTROL TRAVEL OUTSIDE OF THE [place] IN LAST 30 DAYS: No - HEENT HEENT: Atraumatic, Normocephalic - NECK Neck: Normal Inspection - RESPIRATORY Respiratory: No Respiratory Distress - CARDIOVASCULAR Pulses: Normal: Dorsalis pedis - MUSCULOSKELETAL/EXTREMETIES Musculoskeletal/Extremeties: MAEW, Tender - Right ankle tenderness over lateral malleolar area with 2+ edema, right foot tenderness to lateral aspect with 2+ edema, Edema. negative: Eccymosis - NEURO Level of Consciousness: Awake, Alert, Appropriate Motor/Sensory: No Motor Deficit - DERM Integumentary: Warm, Dry, No Rash Course - Vital Signs Vital signs: Temp Pulse Resp BP Pulse Ox 98.4 F 90 18 165/90 H 97 08/15/18 13:57 08/15/18 13:57 08/15/18 13:57 08/15/18 13:57 08/15/18 13:57 - Diagnostic Test Radiology reviewed: Image reviewed, Reports reviewed Procedures - Immobilization Right Ankle Pre-Proc Neuro Vasc Exam: Normal Immobilizer type: Ankle stirrup Performed by: PCT Post-Proc Neuro Vasc Exam: Normal Alignment checked and good: Yes Discharge - Discharge Clinical Impression: Foot pain, right Right ankle sprain Qualifiers: Encounter type: initial encounter Involved ligament of ankle: unspecified ligament Qualified Code(s): S93.401A - Sprain of unspecified ligament of right ankle, initial encounter Condition: Stable Disposition: HOME, SELF-CARE Instructions: Use of Crutches ([facility]), Sprained Ankle ([facility]), Temporary Splint ( [facility]) Additional Instructions: Return immediately for any new or worsening symptoms Followup with your primary care provider, call tomorrow to make a followup appointment Weightbearing as tolerated Follow-up with orthopedics for any persistent pain or problems Prescriptions: Naproxen [Naprosyn 250 Nmg Tablet] 1 tab PO BID #14 tablet Forms: Smoking Cessation Education Referrals: AUREA CONTRERAS DO [Primary Care Provider] - Follow up as needed [facility] [Provider [facility]] - Follow up tomorrow
--- NOTE | 2018-08-15 14:48 | RADIOLOGY REPORT (SQ) ---
EXAM DESCRIPTION: ANKLE RIGHT COMPLETE COMPLETED DATE/TIME: 08/15/2018 2:31 pm REASON FOR STUDY: injury COMPARISON: None. NUMBER OF VIEWS: Three views. TECHNIQUE: AP, lateral, and oblique radiographic images acquired of the right ankle. LIMITATIONS: None. FINDINGS: MINERALIZATION: Normal. BONES: No acute fracture or dislocation. No worrisome bone lesions. JOINTS: No effusions. SOFT TISSUES: Soft tissue swelling. No foreign body. OTHER: No other significant finding. IMPRESSION: SOFT TISSUE SWELLING. NO ACUTE BONY FINDINGS. TECHNICAL DOCUMENTATION: JOB ID: [id number] [employer]- All Rights Reserved Reading location - IP/workstation name: [email or web address]
--- NOTE | 2018-08-15 14:58 | RADIOLOGY REPORT (SQ) ---
EXAM DESCRIPTION: FOOT RIGHT COMPLETE COMPLETED DATE/TIME: 08/15/2018 2:47 pm REASON FOR STUDY: foot pain, rolled ankle, fell COMPARISON: None. NUMBER OF VIEWS: Three views. TECHNIQUE: AP, lateral and oblique radiographic images acquired of the right foot. LIMITATIONS: None. FINDINGS: MINERALIZATION: Normal. BONES: No acute fracture or dislocation. No worrisome bone lesions. JOINTS: No effusions. SOFT TISSUES: No soft tissue swelling. No foreign body. OTHER: No other significant finding. IMPRESSION: NEGATIVE STUDY OF THE RIGHT FOOT. NO RADIOGRAPHIC EVIDENCE OF ACUTE INJURY. TECHNICAL DOCUMENTATION: JOB ID: [id number] [employer]- All Rights Reserved Reading location - IP/workstation name: [email or web address]
== END 2018-08-15 15:19 | disposition home or self-care (01) ==
LOC: ER 13:52
DX: S93.401A Sprain of unspecified ligament of right ankle, initial encounter (principal); S99.921A Unspecified injury of right foot, initial encounter; M79.671 Pain in right foot; M25.571 Pain in right ankle and joints of right foot; W19.XXXA Unspecified fall, initial encounter; F17.200 Nicotine dependence, unspecified, uncomplicated; I10 Essential (primary) hypertension; J44.9 Chronic obstructive pulmonary disease, unspecified
CPT/HCPCS: 99283; 73610; 73630; L1902

== ENCOUNTER 2018-10-05 20:06 | Emergency (ER) | payer SELFPAY ==
[2018-10-05 20:18] VITALS: BP 143/91
[2018-10-05] MEDS ORDERED: KETOROLAC TROMETHAMINE 60 MG/2 ML SDV IM ONE (20:37)
[2018-10-05] MEDS ORDERED: OXYCODONE-ACETAMINOPHEN 5-325 MG TABLET PO ONE (20:38)
--- NOTE | 2018-10-05 21:12 | RADIOLOGY REPORT (SQ) ---
EXAM DESCRIPTION: XR HIP 2 OR MORE VIEWS COMPLETED DATE/TME: 10/05/2018 20:38 CLINICAL HISTORY: 48 years, Male, left hip pain s/p fall Findings: Bony alignment is anatomic. No fracture or dislocation. Soft tissues are unremarkable. IMPRESSION: No fracture.
--- NOTE | 2018-10-05 21:59 | ER Document Report ---
ED General - General Chief Complaint: Groin Pain Stated Complaint: FELL/LEFT LEG PAIN Time Seen by Provider: 10/05/18 20:25 Mode of Arrival: Ambulatory Information source: Patient Notes: This is a 48-year-old man presenting with left groin pain after falling. Patient states he was walking outside of his house slipped on the wet steps. He fell forward landing on outstretched hands. He complains of left groin pain. He states he felt like he twisted his lower torso as he fell. He was able to ambulate after. He did not hit his head. He denies any pain to the upper hands, wrists, elbows or shoulders. TRAVEL OUTSIDE OF THE [place] IN LAST 30 DAYS: No - HPI Onset: Just prior to arrival Onset/Duration: Sudden Quality of pain: Dull Severity: Moderate Pain Level: 3 Associated symptoms: denies: Chest pain, Fever, Shortness of breath Exacerbated by: Movement Relieved by: Remaining still Similar symptoms previously: No Recently seen / treated by doctor: No - Related Data Allergies/Adverse Reactions: oragel Allergy (Intermediate, Uncoded 08/15/18 13:53) ambesol Allergy (Mild, Uncoded 08/15/18 13:53) Past Medical History - General Information source: Patient - Social History Smoking Status: Current Every Day Smoker Cigarette use (# per day): Yes - Half a pack per day Chew tobacco use (# tins/day): No Frequency of alcohol use: None Drug Abuse: None Lives with: Family Family History: Arthritis, CAD, COPD, DM, Hyperlipidemia, Hypertension Patient has suicidal ideation: No Patient has homicidal ideation: No - Past Medical History Cardiac Medical History: Reports: Hx Atrial Fibrillation, Hx Hypertension Pulmonary Medical History: Reports: Hx Bronchitis, Hx COPD Neurological Medical History: Reports: Hx Migraine Renal/ Medical History: Denies: Hx Peritoneal Dialysis Musculoskeletal Medical History: Reports Hx Arthritis, Reports Hx Musculoskeletal Deformity, Reports Hx Musculoskeletal Trauma - Herniated disc sciatica chronic pain in his back Psychiatric Medical History: Reports: Hx Anxiety, Hx Attention Deficit Hyperactivity Disorder, Hx Depression Past Surgical History: Reports: Hx Cardiac Catheterization - ablation, Hx Cardiac Surgery - as a child, Other - Open heart surgery at age [age] to correct a septal defect. - Immunizations Immunizations up to date: Yes Hx Diphtheria, Pertussis, Tetanus Vaccination: Yes - 2012 Review of Systems - Review of Systems Constitutional: denies: Chills, Fever EENT: No symptoms reported Cardiovascular: No symptoms reported Respiratory: No symptoms reported Gastrointestinal: No symptoms reported Genitourinary: No symptoms reported Male Genitourinary: No symptoms reported Musculoskeletal: See HPI Skin: No symptoms reported Hematologic/Lymphatic: No symptoms reported Neurological/Psychological: No symptoms reported Physical Exam - Vital signs Vitals: Temp Pulse Resp BP Pulse Ox 98.8 F 95 18 143/91 H 96 10/05/18 20:14 10/05/18 20:14 10/05/18 20:14 10/05/18 20:14 10/05/18 20:14 Notes: Physical exam: GENERAL: She is alert and oriented x3, no acute distress HEAD: Atraumatic, normocephalic. EYES: Pupils equal round and reactive to light, extraocular movements intact, sclera anicteric, conjunctiva are normal. ENT: TMs normal, nares patent, oropharynx clear without exudates. Moist mucous membranes. NECK: Normal range of motion, supple without obvious mass or JVD. LUNGS: Breath sounds clear to auscultation bilaterally and equal. No wheezes rales or rhonchi. HEART: Regular rate and rhythm without murmurs, rubs or gallops. ABDOMEN: Soft, normoactive bowel sounds. No tenderness to palpation. No guarding, no rebound. No masses appreciated. EXTREMITIES: Patient has left groin pain range of motion of the left hip. He has no tenderness on axial compression. He does have full range of motion passively. He does have tenderness to palpation along the medial quad. NEUROLOGICAL: Cranial nerves II through XII grossly intact. Normal speech, moving all extremities. PSYCH: Normal mood, normal affect. SKIN: Warm, Dry, normal turgor, no rashes or lesions noted. Course - Vital Signs Vital signs: Temp Pulse Resp BP Pulse Ox 98.8 F 95 18 143/91 H 96 10/05/18 20:14 10/05/18 20:14 10/05/18 20:14 10/05/18 20:14 10/05/18 20:14 - Diagnostic Test Radiology reviewed: Image reviewed, Reports reviewed - Ray show no fracture. Discharge - Discharge Clinical Impression: Left groin pain Condition: Stable Disposition: HOME, SELF-CARE Additional Instructions: As we discussed, the x-rays show no evidence of fracture. I want you to take ibuprofen every 6 hours for the next few days. Take oxycodone for pain unrelieved by the ibuprofen. You can try ice packs alternating with heat packs to see which one helps. You may have this discomfort for 2 weeks. Return to the emergency room for worsening pain, inability to walk, concerns is getting worse. The pain medicine you're taking prescribed as a narcotic. There are several important things you should know about this medicine: 1. Taking narcotics for too long can lead to physical and mental dependence. Take this medicine only if really needed and in the lowest quantity to achieve pain relief. 2. Do not drink alcohol while on this medicine. Alcohol interacts with narcotics and the combination can be dangerous. 3. Do not drive or operate machinery while on this medicine. 4. Narcotics do cause constipation, so drink plenty of fluids and daily stool softeners. Prescriptions: Oxycodone HCl 5 mg PO Q6HP PRN #20 capsule PRN Reason: Referrals: AUREA CONTRERAS DO [Primary Care Provider] - Follow up as needed
== END 2018-10-05 22:00 | disposition home or self-care (01) ==
LOC: ER 20:06
DX: R10.30 Lower abdominal pain, unspecified (principal); M79.605 Pain in left leg; W01.0XXA Fall on same level from slipping, tripping and stumbling without subsequent striking against object, initial encounter; F17.210 Nicotine dependence, cigarettes, uncomplicated; I10 Essential (primary) hypertension; J44.9 Chronic obstructive pulmonary disease, unspecified
CPT/HCPCS: 99284; 96372; 73502; J1885

== ENCOUNTER 2020-02-06 14:35 | Emergency (ER) | payer SELFPAY ==
[2020-02-06] MEDS ORDERED: OXYCODONE-ACETAMINOPHEN 5-325 MG TABLET PO ONE (15:02)
[2020-02-06] MEDS ORDERED: LIDOCAINE 2% VISCOUS SOLN 15 ML UDCUP PO ONE (15:02)
[2020-02-06] MEDS ORDERED: PENICILLIN V POTASSIUM 500 MG TABLET PO ONE (15:03)
[2020-02-06 15:07] VITALS: BP 161/100
--- NOTE | 2020-02-06 15:07 | ER Document Report ---
HPI - HPI Time Seen by Provider: 02/06/20 14:40 Pain Level: 5 Notes: 49-year-old male patient presenting with 4-day history of dental pain. Patient reports pain to the right lower side of his jaw. He states 1 of his teeth broke. He has not seen a dentist. He states he has tried cyde-jjm-[id number] medicines without relief. He denies any fever or drainage from the area. - REPRODUCTIVE Reproductive: DENIES: : Past Medical History - General Information source: Patient - Social History Smoking Status: Current Every Day Smoker Frequency of alcohol use: Occasional Drug Abuse: None Family History: Arthritis, CAD, COPD, DM, Hyperlipidemia, Hypertension Patient has suicidal ideation: No Patient has homicidal ideation: No - Past Medical History Cardiac Medical History: Reports: Hx Atrial Fibrillation, Hx Hypertension Pulmonary Medical History: Reports: Hx Bronchitis, Hx COPD Neurological Medical History: Reports: Hx Migraine Renal/ Medical History: Denies: Hx Peritoneal Dialysis Musculoskeletal Medical History: Reports Hx Arthritis, Reports Hx Musculoskeletal Deformity, Reports Hx Musculoskeletal Trauma - Herniated disc sciatica chronic pain in his back Psychiatric Medical History: Reports: Hx Anxiety, Hx Attention Deficit Hyperactivity Disorder, Hx Depression Past Surgical History: Reports: Hx Cardiac Catheterization - ablation, Hx Cardiac Surgery - as a child, Other - Open heart surgery at age [age] to correct a septal defect. - Immunizations Immunizations up to date: Yes Hx Diphtheria, Pertussis, Tetanus Vaccination: Yes - 2013 [facility] Provider Document - CONSTITUTIONAL Notes: PHYSICAL EXAMINATION: GENERAL: Well-appearing, well-nourished and in no acute distress. HEAD: Atraumatic, normocephalic. EYES: Pupils equal round extraocular movements intact, conjunctiva are normal. ENT: Nares patent, multiple dental caries and fractured teeth noted to right lower jaw, no obvious abscess, no evidence of Ludewig's angina. NECK: Normal range of motion LUNGS: No respiratory distress Musculoskeletal: Normal range of motion NEUROLOGICAL: Normal speech, normal gait. PSYCH: Normal mood, normal affect. SKIN: Warm, Dry, normal turgor, no rashes or lesions noted. - INFECTION CONTROL TRAVEL OUTSIDE OF THE [place] IN LAST 30 DAYS: No Course - Re-evaluation Re-evalutation: Presentation is most consistent with likely an infected tooth. Airway is patent. Vitals within normal limits. Patient is able swallow without any difficulty. There is no significant facial swelling. No evidence of Michael angina, apical abscess, or airway obstruction. Patient will be started on antibiotics. I've instructed to follow-up with dentistry as earliest ability for definitive management. At this time will discharge with return precautions and follow-up recommendations. Verbal discharge instructions given a the bedside and opportunity for questions given. Medication warnings reviewed. Patient is in agreement with this plan and has verbalized understanding of return precautions and the need for primary care follow-up in the next 24-72 hours. - Vital Signs Vital signs: Temp Pulse Resp BP Pulse Ox 98.2 F 91 16 161/100 H 97 02/06/20 14:38 02/06/20 14:38 02/06/20 14:38 02/06/20 14:38 02/06/20 14:38 Discharge - Discharge Clinical Impression: Toothache, Dental caries Condition: Stable Disposition: HOME, SELF-CARE Additional Instructions: You have been seen for dental pain. It is very important that you follow-up with a dentist for definitive care. Please return if you develop fever greater than 101, swelling in your face, vomiting, difficulty breathing or swallowing, or any other symptoms that are concerning to you. For pain you should take ibuprofen 800 mg every 8 hours as needed. [facility] [phone] Prescriptions: Ibuprofen [Motrin 800 mg Tablet] 800 mg PO Q8H PRN #30 tab PRN Reason: Penicillin V Potassium [Penicillin Vk 500 mg Tablet] 500 mg PO BID #20 tablet Referrals: AUREA CONTRERAS DO [Primary Care Provider] - Follow up as needed
== END 2020-02-06 15:10 | disposition home or self-care (01) ==
LOC: ER 14:35
DX: K02.9 Dental caries, unspecified (principal); K08.89 Other specified disorders of teeth and supporting structures; I10 Essential (primary) hypertension; J44.9 Chronic obstructive pulmonary disease, unspecified; F17.200 Nicotine dependence, unspecified, uncomplicated
CPT/HCPCS: 99282; J3490